=== PATIENT | male | born 1940 | race Caucasian/White ===

== ENCOUNTER 2018-02-25 21:52 | Emergency (ER) | payer MEDICARE, OTHER, SELFPAY ==
[2018-02-25 21:53] VITALS: BP 153/83; PULSE 87; RESP 16; TEMP 37.1; O2SAT 97; BMI 29.3
--- NOTE | 2018-02-25 22:19 | CT_ITS ---
CT Abdomen And Pelvis W/O Contrast INDICATION: RT SIDED ABDOMEN PAIN AFTER COUGHING,PT DENIES INJURY,RT SIDED LUMP AND BRUISING,ELEVATED BP,PT TAKES A BABY ASPIRINHX:HTN,CAD,A-FIB,GOUT,CABG X 5 COMPARISON: None TECHNIQUE: Axial CT imaging of the abdomen and pelvis without contrast. Coronal and sagittal reformatted images. Radiation dose of dilatation technique applied. FINDINGS: CAD trapping and scarring is noted at the visualized lung bases. Heart size is normal. The ascending aorta measures 4.2 cm, enlarged. Sternotomy wires are noted. The liver contains few small hypodensities, not further evaluated without contrast, may represent cysts. Spleen contains small calcified granulomas. Adrenal glands and pancreas are unremarkable. The kidneys are without evidence of nephrolithiasis or hydronephrosis. Small bilateral cortical renal cysts are noted. Bowel loops are nondistended. Appendix is unremarkable. Urinary bladder is decompressed. There is no evidence of free air or free fluid. Sigmoid diverticulosis is present without evidence of acute diverticulitis. Diffuse arteriosclerotic calcifications of the abdominal aorta and branching vessels are noted. There is evidence of thickening of the right rectus muscle with internal hyperdensity compatible with a right rectus muscle hematoma. Thickness measures up to 2 cm and craniocaudal extension measures approximately 6 cm. Associated overlying subcutaneous fat stranding is noted. A fat-containing umbilical hernia is noted with a 7 mm focus of internal calcification. Osseous structures demonstrate degenerative disc disease and facet arthritic changes at the lumbar spine. CT/Abdomen/Pelvis without Cont IMPRESSION: 2.6 cm right rectus muscle hematoma. Overlying subcutaneous fat stranding. No evidence of intra-abdominal extension. Arteriosclerotic disease. Prominent caliber of the visualized portion of the ascending aorta. Small hypodense lesions in the liver, not further characterized on this noncontrast exam. Small cortical renal cysts. Fat-containing umbilical hernia. at 2311 Reported and signed by: Millicent Dia MD N.B. : The above information has been verbally conveyed by Millicent Dia MD to Dr. Yanira Joseph, Referring Physician, on 02/25/2018 23:14:24 (ET). Electronically Signed: Millicent Dia MD at 23:09 EDT Tel , Service support , N.B. : The above information has been verbally conveyed by Millicent Dia MD to Dr. Yanira Joseph, Referring Physician, on 02/25/2018 23:14:24 (ET).
[2018-02-25 22:33] LABS: Absolute Lymphocyte Count 1.94 X10^3/ul (0.83-4.51); Absolute Neutrophil Count 4.6 X10^3/uL (2.0-7.7); Basophil# 0.03 X10^3/uL; Basophil% 0.4 % (0-1); Eosinophil# 0.22 X10^3/uL; Hematocrit 39.5 % (40-54); Hemoglobin 13.3 g/dl (13.0-16.5); Lymphocyte # 1.94 X10^3/ul (4.0); Lymphocyte % 26.4 % (19-41); Mean Corp Hgb Conc 33.7 g/gl (32-36); Mean Corpuscular Hgb 31.4 pg (27.0-32.0); Mean Corpuscular Volume 93.4 fL (80-94); Mean Platelet Vol. 9.5 fl (6.2-12.0); Monocyte# 0.58 X10^3/uL; Monocyte% 7.9 % (0-10); Neutrophil # 4.58 X10^3/uL (2.7-7.7); Neutrophil % 62.2 % (47-70); Platelet Count 201 K/mm3 (150-450); RBC Distribution Width CV 15.5 % (11.6-14.6); RBC Distribution Width SD 52.7 fl (35.1-43.9); Red Blood Count 4.23 M/mm3 (4.6-6.2); White Blood Count 7.4 K/mm3 (4.4-11.0)
[2018-02-25 22:36] LABS: POSITIVE COUNT NO; POSITIVE DIFFERENTIAL NO; POSITIVE MORPHOLOGY NO
[2018-02-25 23:03] LABS: Anion Gap 7 (5-15); BUN 19 mg/dL (7-18); Calcium,Total 8.4 mg/dL (8.5-10.1); Chloride 103 mmol/L (98-107); Creatinine, Serum 1.12 mg/dL (0.70-1.30); EST Glomerular Filtration Rate 67 mL/min (>60); Est Glom Filt Rate - Afr Amer 82 mL/min (>60); Estimated Creatinine Clearance 48.05 ml/min; Glucose 146 mg/dL (74-106); Potassium 3.7 mmol/L (3.5-5.1); Sodium Level 138 mmol/L (136-145)
--- NOTE | 2018-02-25 23:18 | ED.VISSUMM ---
- ER Visit Summary Date of Service: 02/25/18 Chief Complaint: [Abdominal pain and discoloration to right side of abdomen] History of Present Illness: The patient is a 77 M [presents to the emergency department with complaint of abdominal discomfort that started 3 days ago. Patient states that tonight he noticed discoloration to his abdomen. Patient states he has been coughing frequently due to bronchitis. Patient was treated with amoxicillin. Patient not on any blood thinners. Patient does take baby aspirin daily. Patient denies feeling lightheaded or dizzy. Abdominal discomfort is minimal at this time.] Physical Examination: [HEENT-PERRLA, EOMI. Cranial nerves II through XII grossly intact. TMs clear. Mucous membranes moist. No adenopathy. Cardiovascular-regular rate and rhythm without murmur or ectopy Lungs-clear to auscultation, chest wall stable without crepitus or subcu emphysema Abdomen-normoactive bowel sounds, soft. patient has small soft tissues swelling in the subcutaneous area of the right upper quadrant slightly tender to palpation. Patient has ecchymosis and bruising to the right side of the abdomen. There is no rebound, rigidity, or perineal signs. Extremities-intact ?4, normal range of motion, normal pulses, atraumatic.] Test Results: [CBC with differential obtained showed a white blood cell count of 7.4, hemoglobin 13, hematocrit 39.5, platelets 201. Chemistries unremarkable. CT flank showed a 2.6 cm right rectus muscle hematoma. Nothing significant intra-abdominal he noted.] Emergency Department Course and Treatment: Patient initially received normal saline 125 cc an hour. Patient to follow-up with his primary care physician for repeat exam in 3-5 days.] Treatment Plan: [Follow-up with primary care physician] Disposition: Discharged home in stable condition] Impression: [Right rectus muscle hematoma] This note was generated with [employer] dictation software. It may contain incorrect words, spelling, and punctuation that were not noted in review of the chart prior to signing ED Disposition - Plan for ED Patient: Chief Complaint: Other, Pain/Inj Referrals: Carlos Ram III, MD [Primary Care Provider] -
--- NOTE | 2018-02-25 23:21 | ED.DEP ---
ED Disposition - Plan for ED Patient: Chief Complaint: Other, Pain/Inj Instructions: ED Hematoma Referrals: Carlos Ram III, MD [Primary Care Provider] - 3-5 Days
[2018-02-25 23:33] VITALS: BP 150/83; BP 154/87; BP 162/83; PULSE 72; PULSE 76; PULSE 77; RESP 14; O2SAT 95
== END 2018-02-25 23:35 | disposition home or self-care (01) ==
LOC: ED 22:56
PROVIDERS: Emergency Provider Emergency Medicine; Family Provider Family Medicine; PCP Family Medicine
DX: S30.1XXA Contusion of abdominal wall, initial encounter (principal); X58.XXXA Exposure to other specified factors, initial encounter; Y93.9 Activity, unspecified; Y92.9 Unspecified place or not applicable; I25.10 Atherosclerotic heart disease of native coronary artery without angina pectoris; I10 Essential (primary) hypertension; M10.9 Gout, unspecified; Z95.1 Presence of aortocoronary bypass graft; Z79.82 Long term (current) use of aspirin; Z79.899 Other long term (current) drug therapy
CPT/HCPCS: 74176; 80048; 85025; 99283; A4216

== ENCOUNTER → 2018-12-07 10:47 | Outpatient (CLI) | payer MEDICARE, OTHER, SELFPAY ==
[2018-12-07 11:40] LABS: Hematocrit 45.9 % (40-54); Hemoglobin 15.5 g/dl (13.0-16.5); Mean Corp Hgb Conc 33.8 g/gl (32-36); Mean Corpuscular Hgb 32.1 pg (27.0-32.0); Mean Platelet Vol. 11.1 fl (6.2-12.0); Platelet Count 173 K/mm3 (150-450); RBC Distribution Width CV 15.1 % (11.6-14.6); Red Blood Count 4.83 M/mm3 (4.6-6.2); White Blood Count 6.7 K/mm3 (4.4-11.0)
[2018-12-07 11:41] LABS: Scan Indicated on CBC? Y/N NO
[2018-12-07 12:02] LABS: Anion Gap 10 (5-15); BUN 19 mg/dL (7-18); BUN/Creat Ratio 17.8 RATIO (10-20); Calcium,Total 9.2 mg/dL (8.5-10.1); Chloride 104 mmol/L (98-107); Creatinine, Serum 1.07 mg/dL (0.70-1.30); EST Glomerular Filtration Rate 71 mL/min (>60); Est Glom Filt Rate - Afr Amer 86 mL/min (>60); Glucose 92 mg/dL (74-106); Sodium Level 143 mmol/L (136-145)
== END ==
PROVIDERS: Family Provider Family Medicine; PCP Family Medicine; Referring Provider Internal Medicine Cardiovascular Disease; Visit Provider Internal Medicine Cardiovascular Disease
DX: I48.0 Paroxysmal atrial fibrillation (principal); I25.10 Atherosclerotic heart disease of native coronary artery without angina pectoris; I67.9 Cerebrovascular disease, unspecified; R42 Dizziness and giddiness; Z45.09 Encounter for adjustment and management of other cardiac device; Z95.818 Presence of other cardiac implants and grafts
CPT/HCPCS: 36415; 80048; 85027

== ENCOUNTER 2018-12-11 07:27 | Day surgery (SDC) | payer MEDICARE, OTHER, SELFPAY ==
[2018-12-10 08:54] VITALS: BMI 28.4
--- NOTE | 2018-12-16 09:37 | CL.IE_ITS ---
Patient: OPAL RODRIGUEZ Study Date: 12/11/2018 Performing: Jayy Mcfarlane MD : 1940 Age: 78 Gender: male PROCEDURES PERFORMED [id number] OF LOOP RECORDER INDICATIONS PROCEDURE DETAILS The patient was brought to the Catheterization Lab in the postabsorptive nonsedated state. Infor med consent was obtained prior to the procedure. Local anesthetic was given subcutaneously to the le ft upper chest area with Lidocaine 2%. Incision was made to the left upper chest. ICM Reveal LINQ was removed. The patient tolerated the procedure well. Estimated Blood Loss: 0 ml's IMPLANTED / EX-PLANTED DEVICES EXPLANTED DEVICE(S): ICM Reveal LINQ - Loading Checker: [employer], Model # LINQ Serial # [id number] DEVICE PARAMETERS CONCLUSIONS / RECOMMENDATIONS Device Conclusions: Successful removal of a patient activated loop recorder. Device Recommendations: Follow up with Primary Care Physician PROCEDURE MEDICATIONS Versed 1 mg IV Oxygen: 2 L/min via nasal cannula Antibiotic given in appropriate timeframe. Ancef 2 Gm IV @ 12/11/2018 09:04:14 Signed By Jayy Mcfarlane MD On 12/16/2018 09:37:03 Jayy Mcfarlane MD
== END 2018-12-11 10:22 | disposition home or self-care (01) ==
LOC: CLSP 07:29
PROVIDERS: Family Provider Family Medicine; PCP Family Medicine; Referring Provider Internal Medicine Cardiovascular Disease; Visit Provider Internal Medicine Cardiovascular Disease
DX: I48.0 Paroxysmal atrial fibrillation (principal); Z45.09 Encounter for adjustment and management of other cardiac device; I25.10 Atherosclerotic heart disease of native coronary artery without angina pectoris; I10 Essential (primary) hypertension; E78.00 Pure hypercholesterolemia, unspecified; Z95.1 Presence of aortocoronary bypass graft; Z79.82 Long term (current) use of aspirin; Z79.899 Other long term (current) drug therapy; E66.3 Overweight; Z68.28 Body mass index [BMI] 28.0-28.9, adult
CPT/HCPCS: 33286; 99152; J7040

== ENCOUNTER 2019-03-24 00:01 | Emergency (ER) | payer MEDICARE, OTHER, SELFPAY ==
[2018-12-10 08:54] VITALS: BMI 28.4
[2019-03-24 00:02] VITALS: BP 156/73; PULSE 71; RESP 15; TEMP 36.7; BMI 26.9
[2019-03-24 00:40] LABS: Absolute Lymphocyte Count 1.84 X10^3/ul (0.83-4.51); Absolute Neutrophil Count 4.6 X10^3/uL (2.0-7.7); Basophil# 0.03 X10^3/uL; Basophil% 0.4 % (0-1); Eosinophil# 0.23 X10^3/uL; Eosinophils% 3.1 % (0-5); Hematocrit 43.1 % (40-54); Hemoglobin 14.9 g/dl (13.0-16.5); Lymphocyte # 1.84 X10^3/ul (4.0); Lymphocyte % 24.7 % (19-41); Mean Corp Hgb Conc 34.6 g/gl (32-36); Mean Corpuscular Hgb 32.5 pg (27.0-32.0); Mean Corpuscular Volume 94.1 fL (80-94); Mean Platelet Vol. 11.2 fl (6.2-12.0); Monocyte# 0.72 X10^3/uL; Monocyte% 9.7 % (0-10); Neutrophil # 4.61 X10^3/uL (2.7-7.7); Platelet Count 145 K/mm3 (150-450); RBC Distribution Width CV 15.9 % (11.6-14.6); RBC Distribution Width SD 54.5 fl (35.1-43.9); Red Blood Count 4.58 M/mm3 (4.6-6.2); White Blood Count 7.4 K/mm3 (4.4-11.0)
[2019-03-24 00:41] LABS: POSITIVE COUNT NO; POSITIVE DIFFERENTIAL NO; POSITIVE MORPHOLOGY NO
[2019-03-24] MEDS: 0.9% Normal Saline 1,000 ML 150 ML IV (00:55)
[2019-03-24 00:58] LABS: Anion Gap 5 (5-15); BUN 24 mg/dL (7-18); BUN/Creat Ratio 20.3 RATIO (10-20); Calcium,Total 8.6 mg/dL (8.5-10.1); Chloride 107 mmol/L (98-107); Creatinine, Serum 1.18 mg/dL (0.70-1.30); EST Glomerular Filtration Rate 63 mL/min (>60); Est Glom Filt Rate - Afr Amer 77 mL/min (>60); Estimated Creatinine Clearance 44.88 ml/min; Glucose 152 mg/dL (74-106); Potassium 3.3 mmol/L (3.5-5.1); Sodium Level 138 mmol/L (136-145)
--- NOTE | 2019-03-24 01:50 | ED.DCSUM_ITS ---
- ER Visit Summary Date of Service: 03/24/19 Chief Complaint: Right lower extremity cellulitis History of Present Illness: The patient is a 78 M who noted redness and warmth to his right lower extremity tonight. He had chills 2 days ago but otherwise is felt well. He denies any known injury. Physical Examination: Vital signs unremarkable. Patient is afebrile. Patient sitting upright in bed no acute distress. He is nontoxic-appearing. Heart is regular rate and rhythm. Lung sounds are clear. Abdomen is soft and nontender. Right lower extremity examination was erythema and warmth over the anterior right barbosa and onto the medial ankle. No open wounds are noted. He has strong distal pulses. Test Results: CBC was normal white count with unremarkable differential. Platelet count is 145,000. Chemistry studies significant only for potassium 3.3 and a glucose 152. Emergency Department Course and Treatment: Patient was given a dose of IV clindamycin. Area of cellulitis is outlined. He will be continued on clindamycin at home. If he worsens he is to return for IV antibiotics. Treatment Plan: [] Disposition: Discharge Impression: Cellulitis right lower extremity This note was generated with [employer] dictation software. It may contain incorrect words, spelling, and punctuation that were not noted in review of the chart prior to signing ED Disposition - Plan for ED Patient: Disposition: Home or Assisted Living Instructions: ED Stap Infec Abx Tx Only Prescriptions: Clindamycin [Cleocin] 300 mg PO 4X/DAY #80 capsule Referrals: Carlos Ram III, MD [Primary Care Provider] - 1 Week
[2019-03-24 01:55] VITALS: BP 151/69; PULSE 58; RESP 15; O2SAT 95
== END 2019-03-24 02:03 | disposition home or self-care (01) ==
PROVIDERS: Emergency Provider Emergency Medicine; Family Provider Family Medicine; PCP Family Medicine
DX: L03.115 Cellulitis of right lower limb (principal); I25.10 Atherosclerotic heart disease of native coronary artery without angina pectoris; I10 Essential (primary) hypertension; E78.00 Pure hypercholesterolemia, unspecified; I48.0 Paroxysmal atrial fibrillation; M10.9 Gout, unspecified; Z79.82 Long term (current) use of aspirin; Z79.899 Other long term (current) drug therapy
CPT/HCPCS: 80048; 85025; 87040; 96365; 99284; J7030; A4216

== ENCOUNTER 2019-08-18 00:45 | Inpatient (IN) | payer MEDICARE, OTHER, SELFPAY ==
[2019-08-03 10:36] VITALS: BMI 28.3
[2019-08-18] VITALS (14 sets, daily range): BP systolic 129–168; BP diastolic 64–82; PULSE 58–67; RESP 16–26; TEMP 36.3–37.1; O2SAT 93–98; BMI 28.0; BMI 27.6
--- NOTE | 2019-08-18 01:02 | EKG12_ITS ---
Test Reason : DIZZINESS Blood Pressure : / mmHG Vent. Rate : 058 BPM Atrial Rate : 058 BPM P-R Int : 174 ms QRS Dur : 102 ms QT Int : 502 ms P-R-T Axes : 042 -37 -61 degrees QTc Int : 492 ms Sinus bradycardia Possible Left atrial enlargement Left axis deviation ST & T wave abnormality, consider anterolateral ischemia Prolonged QT Abnormal ECG Confirmed by DONALD MINER, JARED ([id number]), editor managing director AKBAR WILKERSON ([id number]) on 08/24/2019 2:10:35 PM Referred By: KASSIE Confirmed By:JARED BENNETT MD
--- NOTE | 2019-08-18 01:02 | RAD_ITS ---
STUDY: X-RAY CHEST REASON FOR EXAM: Male, 79 years old. Dizziness. Blurred vision. TECHNIQUE: One view COMPARISON: April 15, 2015 FINDINGS: There is cardiomegaly with median sternotomy wires in place. Plate atelectatic changes in the lung bases and a slightly elevated left hemidiaphragm. No pneumonia.. Normal visualized thoracic spine. Normal visualized ribs, clavicles, and shoulders. There is no demonstrated abnormality of the visualized soft tissue structures of the upper abdomen. RAD/Chest 1 View (Portable) IMPRESSION: Cardiomegaly with bibasilar platelike atelectatic changes Electronically Signed: Evgeny Reyna MD at 1:41 EST Tel , Service support ,
--- NOTE | 2019-08-18 01:03 | ED.VIS.GEN ---
History of Present Illness Chief Complaint: Dizziness Informant: Patient, Family Onset: Today Context: Sudden Onset Timing: Continuous Current Severity: Severe Maximum Severity: Severe Narrative: Patient is a 79-year-old male with history of peripheral vertigo and coronary artery disease presenting with dizziness and vomiting. Patient states around midnight, proximally 1 hour prior to arrival, he was sitting watching TV when he suddenly felt very dizzy. He states he felt like the room was spinning. He was so dizzy had a hard time walking. He developed nausea and vomiting after this. Patient denies any ringing in his ears or hearing changes. He states when the symptoms were particularly severe he felt that his vision was blurry. He states that since resolved. He notes this feels like a prior episode of vertigo he had before his bypass surgery. Patient's been working in his yard last few days and otherwise been feeling well. notes he does have a history of allergies as well as a chronic cough. No other complaints at this time. Patient does not have associated chest pain, shortness of breath or difficulty breathing. No abdominal pain. No numbness, tingling or speech changes. Prior similar symptoms: Yes - Vertigo Past Medical History - Allergies and Home Meds Allergies/Adverse Reactions: Allergies losartan Adverse Reaction (Intermediate, Verified 08/18/19 01:02) Nasal congestion & cough lisinopril Adverse Reaction (Verified 08/18/19 01:02) Other Sulfa (Sulfonamide Antibiotics) Adverse Reaction (Verified 08/18/19 01:02) Unknown Past Medical History: - - Coronary artery disease, proximal atrial fibrillation, hypertension, hyperlipidemia Surgical History: coronary bypass surgery, herniorrhaphy, - Smoking Status: Former smoker - Family History Maternal Family History: Family History (Last Reviewed 08/03/19 @ 14:17 by SAPNA Castaneda) Father Hypertension Brother CVA (cerebral vascular accident) Diabetes Family History: Reports: Hypertension Paternal Family History: Family History (Last Reviewed 08/03/19 @ 14:17 by SAPNA Castaneda) Father Hypertension Brother CVA (cerebral vascular accident) Diabetes Family History: Reports: Hypertension Sibling Family History: Family History (Last Reviewed 08/03/19 @ 14:17 by SAPNA Castaneda) Father Hypertension Brother CVA (cerebral vascular accident) Diabetes Family History: Reports: Hypertension Review of Systems All systems negative except as indicated Eyes: Reports: Blurred Vision - bilaterally - Transient, resolved Gastrointestinal: Reports: Nausea, Vomiting Neurological: Reports: - - Numbness, vertigo Physical Exam Vital Signs/Narrative: Vital Signs Temp Pulse Resp BP Pulse Ox 08/18/19 00:51 16 08/18/19 00:46 97.3 F L 64 16 168/70 H 97 Inital Vital Signs reviewed: Yes General: Well nourished, Well developed, No Acute Distress Head: Normocephalic, Atraumatic Eyes: Perrl, EOMI, - - Bilateral horizontal fatiguing nystagmus with leftward gaze, normal visual urbina ENT: Moist mucous membranes, No rhinorrhea, TM's clear Neck: Supple, Nontender Cardiovascular: Regular rate, Regular rhythm, No murmurs Respiratory: No distress, CTA bilaterally, Chest nontender Abdomen: Soft, Nontender, Nondistended, Normal bowel sounds Back: Nontender, Normal Inspection Extremities: Nontender, No edema Skin: Normal color, No rash Neurological: Alert, Oriented x3, Cranial nerves II-XII grossly intact, Normal Strength, Normal Sensation, - - No truncal ataxia, normal [id number] bilaterally. NIH equals 0 Psychological: Normal affect, Normal Mood Diagnostic/Tx/Re-eval Chest X-Ray - ED: 1 View, Read by ED Physician, Read by Radiologist, No Acute Disease, Cardiomegaly Clinical Impression(s) from Imaging Studies Chest X-Ray 08/18/19 01:02 IMPRESSION: Cardiomegaly with bibasilar platelike atelectatic changes Electronically Signed: Evgeny Reyna MD at 1:41 EST Tel , Service support , Brain CT 08/18/19 03:18 IMPRESSION: No acute findings in the brain Electronically Signed: Evgeny Reyna MD at 4:43 EST Tel , Service support , Laboratory Data 08/18/19 08/18/19 08/18/19 00:55 00:55 02:05 WBC 9.3 RBC 4.82 Hgb 15.8 Hct 44.4 MCV 92.1 MCH 32.8 H MCHC 35.6 RDW Std Deviation 50.4 H RDW Coeff of Fe 14.9 H Plt Count 180 MPV 10.8 Immature Gran % (Auto) 0.100 Neut % (Auto) 28.6 L Lymph % (Auto) 57.8 H [place] % (Auto) 9.4 Eos % (Auto) 3.2 Baso % (Auto) 0.9 Absolute Neuts (auto) 2.7 Absolute Lymphs (auto) 5.36 H Nucleated RBC % 0 Differential Comment SCANNED Sodium 138 Potassium 2.8 L Chloride 104 Carbon Dioxide 25.0 Anion Gap 9 BUN 26 H Creatinine 1.05 Estim Creat Clear Calc 49.62 Est GFR (MDRD) Af Amer 88 Est GFR (MDRD) Non-Af 72 BUN/Creatinine Ratio 24.8 H Glucose 140 H Calcium 9.2 Total Bilirubin 0.40 AST 27 ALT 26 Alkaline Phosphatase 66 Troponin I 0.017 Total Protein 7.3 Albumin 4.0 Globulin 3.3 Albumin/Globulin Ratio 1.2 Lipase 170 Urine Color Yellow Urine Clarity Clear Urine pH 8.0 Ur Specific [place] 1.015 Urine Protein 30 H Urine Glucose (UA) Normal Urine Ketones 15 H Urine Occult Blood Negative Urine Nitrite Negative Urine Bilirubin Negative Urine Urobilinogen Normal Ur Leukocyte Esterase Negative Urine RBC 0 SEEN Urine WBC 0 SEEN Ur Squamous Epith Cells 0-5 SEEN Urine Bacteria RARE Urine Mucus 0 SEEN - Rhythm Strip Rhythm Strip: Sinus bradycardia Rate: 58 Ectopy: None - EKG Initial EKG Interpretation: Sinus Bradycardia, - - This bradycardia rate of 58 new line MA interval 174 QRS 102 QTc 492 Left axis deviation T wave inversions in V1 through V5 Compared to prior EKG on 04/15/2015 patient has no acute changes Prior: Unchanged - Medical Decision Making Patient evaluated for dizziness. His symptoms are consistent with vertigo. I suspect they are peripheral in nature. They seem to be worse with change in his head position or movement. Patient does not have any truncal ataxia or loss of coordination. He has normal visual urbina. Patient is initially given IV Ativan and Zofran for his symptoms. On reevaluation he is improved and I am able to do a more detailed neuro exam. Patient continues to have horizontal nystagmus and is fatigued with leftward gaze however he does not have a small amount of rotary nystagmus with upward gaze. Patient walks to the bathroom but he still quite unstable. BMP is remarkable for hypokalemia. Patient is given IV and oral potassium replacement. He will be admitted for his vertigo because he is at quite a fall risk with his age and unsteadiness. CT of the head does not show any acute intracranial process. Patient will also receive an MRI to definitively rule out a central cause of his vertigo. Patient is agreeable with this plan. He is otherwise stable in the emergency room. He is accepted by Dr. Blanchard to PCU. ED Disposition - Plan for ED Patient: Disposition: Acute [facility] Diagnosis: Vertigo, Hypokalemia
[2019-08-18 01:10] LABS: Absolute Lymphocyte Count 5.36 X10^3/uL (0.83-4.51); Absolute Neutrophil Count 2.7 X10^3/uL (2.0-7.7); Basophil# 0.08 X10^3/uL; Basophil% 0.9 % (0-1); Differential Indicated SCAN CRITERIA MET; Eosinophils% 3.2 % (0-5); Hematocrit 44.4 % (40-54); Hemoglobin 15.8 g/dL (13.0-16.5); Lymphocyte # 5.36 X10^3/ul (4.0); Lymphocyte % 57.8 % (19-41); Mean Corp Hgb Conc 35.6 g/dL (32-36); Mean Corpuscular Hgb 32.8 pg (27.0-32.0); Mean Corpuscular Volume 92.1 fL (80-94); Mean Platelet Vol. 10.8 fl (6.2-12.0); Monocyte# 0.87 X10^3/uL; Monocyte% 9.4 % (0-10); NRBC Flagged by Analyzer 0 % (0-5); Neutrophil # 2.66 X10^3/uL (2.7-7.7); Neutrophil % 28.6 % (47-70); POSITIVE DIFFERENTIAL YES; Platelet Count 180 K/mm3 (150-450); RBC Distribution Width CV 14.9 % (11.6-14.6); RBC Distribution Width SD 50.4 fl (35.1-43.9); Red Blood Count 4.82 M/mm3 (4.6-6.2); White Blood Count 9.3 K/mm3 (4.4-11.0)
[2019-08-18] MEDS: Ondansetron 4 MG/2 ML Vial IV (01:20)
[2019-08-18] MEDS: LORazepam 2 MG/ML Syringe 1 MG IV (01:20)
[2019-08-18 01:24] LABS: ALB/GLOB Ratio 1.2 RATIO (0.9-2.4); AST(SGOT) 27 U/L (15-37); Alanine Aminotransfer ALT/SGPT 26 U/L (16-61); Alkaline Phosphatase 66 U/L (45-117); Anion Gap 9 (5-15); BUN 26 mg/dL (7-18); BUN/Creat Ratio 24.8 RATIO (10-20); Calcium,Total 9.2 mg/dL (8.5-10.1); Chloride 104 mmol/L (98-107); Creatinine, Serum 1.05 mg/dL (0.70-1.30); EST Glomerular Filtration Rate 72 mL/min (>60); Est Glom Filt Rate - Afr Amer 88 mL/min (>60); Estimated Creatinine Clearance 49.62 ml/min; Globulin 3.3 g/dL (2.2-4.2); Glucose 140 mg/dL (74-106); Lipase 170 U/L (73-393); Potassium 2.8 mmol/L (3.5-5.1); Protein, Total 7.3 g/dL (6.4-8.2); Sodium Level 138 mmol/L (136-145)
[2019-08-18 01:36] LABS: Differential Comment SCANNED
[2019-08-18 02:14] LABS: Mucous, Urine 0 SEEN /hpf (<or=2+); Red Blood Cells-Urine 0 SEEN /hpf (0-5); White Blood Cells 0 SEEN /hpf (0-5)
[2019-08-18 02:15] LABS: Color, Urine Yellow (Yellow); Glucose, Dipstick Normal (Normal); Ketone-Dipstick 15 mg/dl (Negative); Leukocyte Esterase-Dipstick Negative /ul (Negative); Nitrite-Dipstick Negative (Negative); Occult Blood-Urine Negative /ul (Negative); Protein-Dipstick 30 mg/dl (Negative); Specific Gravity, Urine 1.015 (1.002-1.030); Urine Bilirubin Dipstick Negative (Negative); Urine Clarity Clear (Clear); Urine Urobilinogen Normal (Normal)
[2019-08-18 02:21] LABS: Bacteria RARE /hpf (None Seen); Squamous Epithelial Cells - UA 0-5 SEEN /hpf (0-5)
--- NOTE | 2019-08-18 03:18 | CT_ITS ---
STUDY: CT BRAIN WITHOUT CONTRAST REASON FOR EXAM: Male, 79 years old. DNS. Blurred vision. RADIATION DOSAGE (If Supplied By Facility): CTDIvol = ( 44.99 ) mGy, DLP = ( 812.98 ) mGycm TECHNIQUE: Transaxial CT imaging of the brain was performed without administration of intravenous contrast material. Individualized dose optimization techniques were used for this CT. COMPARISON: April 15, 2015 FINDINGS: No scalp hematoma and no calvarial fracture. Age-related involutional changes of the brain in both hemispheres. There is no acute hemorrhage or acute infarction and no intra or extra-axial tumor mass. Nonspecific microangiopathic white matter changes in both centrum semiovales. CT/Brain/Head without Contrast IMPRESSION: No acute findings in the brain Electronically Signed: Evgeny Reyna MD at 4:43 EST Tel , Service support ,
--- NOTE | 2019-08-18 03:39 | HP.PCM_ITS ---
Problem List (1) Vertigo Status: Chronic History of Present Illness Date of Admission: 08/18/19 Chief Complaint: DIZZINESS The patient is a 79 year old M with a significant history of hypertension; hyperlipidemia; CAD status post CABG; and paroxysmal A. fib who presented to emergency department with dizziness that started few hours before presentation. He describes his dizziness as a spinning sensation. Associated with symptoms is nausea and dry heaving. Patient was so dizziness to the point that he could not stand up. Also he had blurry vision. At the emergency department his blurry vision had improved. Patient reported that the last time he had dizziness was when he had a heart attack. Family reported that patient had bronchitis about 2 to 3 weeks ago and was placed on steroids. Emergency department doctor reported nystagmus. Past Medical History Past Medical History (Chronic Problems): Chronic Problems (Last Reviewed 08/18/19 @ 05:49 by Santo Cedeño MD) Other specified cardiac device in situ (Chronic) Paroxysmal atrial fibrillation (Chronic) Presence of aortocoronary bypass graft (Chronic) 02/17/2015 CABG: NGUYEN to LAD, SVG to OM, and posterolateral bundles and also to ramus intermedius @ [facility] Atherosclerotic heart disease of [place] coronary artery without angina pectoris (Chronic) 02/17/2015 CABG: NGUYEN to LAD, SVG to OM, and posterolateral bundles and also to ramus intermedius @ [facility] HLD (hyperlipidemia) (Chronic) HTN (hypertension) (Chronic) Hyperlipidemia (Chronic) Gout (Chronic) CAD (coronary artery disease) (Chronic) severe going for cabg Cerebrovascular disease (Chronic) 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) NGUYEN to LAD, SVG to OM, Posterolateral bundles, & ramus intermedius @ [facility] Occlusion of both vertebral arteries (Chronic) Vertigo (Chronic) Medical History: Medical History (Last Reviewed 08/18/19 @ 06:12 by Santo Cedeño MD) Other specified cardiac device in situ (Chronic) Z95.818 Paroxysmal atrial fibrillation (Chronic) I48.0 Atherosclerotic heart disease of [place] coronary artery without angina pectoris (Chronic) I25.10 02/17/2015 CABG: NGUYEN to LAD, SVG to OM, and posterolateral bundles and also to ramus intermedius @ [facility] HLD (hyperlipidemia) (Chronic) E78.5 HTN (hypertension) (Chronic) I10 Allergies losartan Adverse Reaction (Intermediate, Verified 08/18/19 01:02) Nasal congestion & cough lisinopril Adverse Reaction (Verified 08/18/19 01:02) Other Sulfa (Sulfonamide Antibiotics) Adverse Reaction (Verified 08/18/19 01:02) Unknown Home Medications: Ambulatory Orders Medication Instructions Recorded Allopurinol [Zyloprim] 300 mg PO DAILY #30 tab 05/27/14 Aspirin [Aspirin, Baby] 81 mg PO DAILY #30 05/27/14 Simvastatin [Zocor] 20 mg PO QHS 04/15/15 Amlodipine [Norvasc] 5 mg PO DAILY 05/25/16 hydrochlorothiazide 12.5 mg capsule 12.5 mg PO QDAY 11/17/17 Surgical History: Surgical History (Last Reviewed 08/18/19 @ 06:12 by Santo Cedeño MD) Presence of aortocoronary bypass graft (Chronic) Z95.1 02/17/2015 CABG: NGUYEN to LAD, SVG to OM, and posterolateral bundles and also to ramus intermedius @ [facility] Surgical History: coronary bypass surgery, herniorrhaphy, - Psychiatric History: No pertinent psych hx Lives: Spouse/ Significant Other Smoking Status: Former smoker - *Family History Maternal Family History: Family History (Last Reviewed 08/18/19 @ 06:12 by Santo Cedeño MD) Father Hypertension Brother CVA (cerebral vascular accident) Diabetes History Items: Hypertension Paternal Family History: Family History (Last Reviewed 08/18/19 @ 06:12 by Santo Cedeño MD) Father Hypertension Brother CVA (cerebral vascular accident) Diabetes History Items: Hypertension Sibling Family History: Family History (Last Reviewed 08/18/19 @ 06:12 by Santo Cedeño MD) Father Hypertension Brother CVA (cerebral vascular accident) Diabetes History Items: Hypertension Review of Systems Constitutional: Denies: Chills, Fever, Weight Change HEENT: Denies: Head Aches, Sinus Congestion, Sinus Drainage Cardiovascular: Denies: Chest Pain, Palpitations Respiratory: Reports: Cough - Chronic. Denies: Shortness of breath at rest, Sputum production Gastrointestinal: Reports: Nausea. Denies: Abdominal Pain, Vomiting Genitourinary: Denies: Dysuria Musculoskeletal: Denies: Joint Pain, Joint Tenderness Skin: Denies: Rash, Wounds Neurological: Reports: Blurred vision. Denies: Focal weakness, Numbness, Tingling Psychiatric: Denies: Anxiety, Depression, Homicidal Ideations, Suicidal Ideations Hematologic/ Lymphatic: Denies: Easy Bruising, Easy Bleeding VTE Information - Inpt Only VTE Present on Admission: No VTE Mechan Device Prophylaxis: None VTE Pharm Prophylaxis ordered?: Yes Patient Problems: Active and Suspected Problems (Last Reviewed 08/18/19 @ 05:49 by Santo Cedeño MD) Hypokalemia (Acute) - Physical Exam Vitals/I&O's: Vital Signs Temp Pulse Resp BP Pulse Ox 97.3 F L 59 L 26 H 138/67 H 97 08/18/19 00:46 08/18/19 03:34 08/18/19 03:34 08/18/19 03:34 08/18/19 00:46 Oxygen Delivery Method Room Air Weight: 76.474 kg Body Mass Index (BMI) 28.0 Finger Stick Blood Glucose 140 Intake and Output for Last 24 Hours 08/16/19 08/17/19 08/18/19 23:59 23:59 23:59 Intake Total 500 / 500 Balance 500 / 500 General: Alert, Oriented x3, Cooperative HEENT: Atraumatic, PERRLA, EOMI, Normocephalic Neck: Supple, No JVD, Negative Carotid Bruits Lungs: Clear to auscultation, Normal air movement Cardiovascular: Regular rate, No murmurs Abdomen: Bowel Sounds Present, Soft, Non Tender Extremities: No edema, Capillary Refill Less than 3 Seconds Skin: No rashes, No breakdown Musculoskeletal: No Tenderness to Palpation of Joints or Extremities Neurological: Cranial nerves II-XII grossly intact, - - Dysarthric maneuver did not show vertigo. However patient appeared to have some mild nystagmus. Psych/Mental Status: Normal Affect, Appropriate Laboratory Results 08/18/19 00:55: WBC 9.3, RBC 4.82, Hgb 15.8, Hct 44.4, MCV 92.1, MCH 32.8 H, MCHC 35.6, RDW Std Deviation 50.4 H, RDW Coeff of Fe 14.9 H, Plt Count 180, MPV 10.8, Immature Gran % (Auto) 0.100, Neut % (Auto) 28.6 L, Lymph % (Auto) 57.8 H , [place] % (Auto) 9.4, Eos % (Auto) 3.2, Baso % (Auto) 0.9, Absolute Neuts (auto) 2.7, Absolute Lymphs (auto) 5.36 H, Nucleated RBC % 0, Differential Comment SCANNED 08/18/19 00:55: Sodium 138, Potassium 2.8 L, Chloride 104, Carbon Dioxide 25.0, Anion Gap 9, BUN 26 H, Creatinine 1.05, Estim Creat Clear Calc 49.62, Est GFR (MDRD) Af Amer 88, Est GFR (MDRD) Non-Af 72, BUN/Creatinine Ratio 24.8 H, Glucose 140 H, Calcium 9.2, Total Bilirubin 0.40, AST 27, ALT 26, Alkaline Phosphatase 66, Troponin I 0.017, Total Protein 7.3, Albumin 4.0, Globulin 3.3, Albumin/Globulin Ratio 1.2, Lipase 170 08/18/19 02:05: Urine Color Yellow, Urine Clarity Clear, Urine pH 8.0, Ur Specific [place] 1.015, Urine Protein 30 H, Urine Glucose (UA) Normal, Urine Ketones 15 H, Urine Occult Blood Negative, Urine Nitrite Negative, Urine Bilirubin Negative, Urine Urobilinogen Normal, Ur Leukocyte Esterase Negative, Urine RBC 0 SEEN, Urine WBC 0 SEEN, Ur Squamous Epith Cells 0-5 SEEN, Urine Bacteria RARE, Urine Mucus 0 SEEN Assessment/Plan All Active Problems (Last Reviewed 08/18/19 @ 05:49 by Santo Cedeño MD) Hypokalemia (Acute) Encounter for loop recorder at end of battery life (Acute) The patient is a 79 year old M with a significant history of hypertension; hyperlipidemia; CAD status post CABG; and paroxysmal A. fib who presented to emergency department with dizziness; nausea and dry heaving. Vertigo Order MRI/MRA head and neck Schedule meclizine 3 times daily Valium PRN Zofran as needed. Permissive hypertension with labetalol for systolic blood pressure more than 220 or diastolic blood pressure more than 120. Hold home antihypertensive. Discussed with emergency department doctor to get CT of head. CT of head returned unremarkable. If MRI is unremarkable consider Vestibular rehab to be started inpatient; and then outpatient Hypokalemia On presentation his potassium was 2.8. This could be due to the diuretic effects. P.o. and IV potassium ordered. Trend potassium Hypertension On presentation his blood pressure is stable in regard to his age. Hold home hydrochlorthiazide and amlodipine for permissive hypertension.. PRN labetalol for permissive hypertension parameters. Trend blood pressures and adjust blood pressure medication. CAD status post CABG Aspirin and Zocor continued DVT prophylaxis Subcutaneous Lovenox Code Visit OBSV E&M: [id number] Initial observation care L3
[2019-08-18] MEDS: Potassium Chloride 10mEq/100mL 10 MEQ/100 ML IV.SOLN. 100 MEQ IV BOLUS ×2 (05:58→07:58)
--- NOTE | 2019-08-18 06:46 | MRI_ITS ---
We are attempting to reach an attending provider to discuss findings. An addendum with communication details will be sent when the communication is complete. STUDY: MRI BRAIN WITHOUT CONTRAST REASON FOR EXAM: Male, 79 years old. Vertigo yesterday which has now resolved. TECHNIQUE: Standardized multiplanar fat and water weighted pulse sequences were obtained. COMPARISON: 04/15/2015. FINDINGS: Small restricted diffusion in the left upper cerebellar hemisphere is also visible on the T2 FLAIR sequence. This is subacute lacunar ischemic infarct. 2 small restricted diffusion in the right anterior external capsule and the right lateral globus pallidus are not visible on the T2 FLAIR sequence. They are acute microembolic infarcts. Normal size of the ventricles and extra-axial spaces for the patient's age. Normal white matter tracts of the supratentorial brain. Normal remaining basal ganglia. Normal thalami. There is no extra-axial fluid accumulation. Normal flow voids within the major intracranial circulation suggesting patency by spin echo criteria. Normal sella turcica, pituitary gland, infundibular stalk, optic chiasm and hypothalamus. Normal tectal plate and pineal gland. Normal midbrain, alayna and medulla. Normal cerebellum. Normal basal cisterns. Normal bilateral temporal bones. Normal bilateral internal auditory canals. No demonstrated orbital abnormality, within the constraints of a routine brain study. Normal visualized paranasal sinuses. Normal calvarium and skull base. Normal visualized soft tissue structures. Normal visualized upper cervical spine. MRI/Brain without Contrast IMPRESSION: 1. 2 acute microembolic lacunar ischemic infarcts in the right anterior external capsule and the right lateral globus pallidus. 2. Small subacute lacunar ischemic infarct in the left upper cerebellar hemisphere. 3. No other additional findings or changes since 04/15/2015. Electronically Signed: Amando Andre MD at 10:50 EST , Service support ,
--- NOTE | 2019-08-18 06:46 | MRI_ITS ---
STUDY: MRA OF THE HEAD WITHOUT CONTRAST REASON FOR EXAM: Male, 79 years old. Vertigo yesterday which has now resolved. TECHNIQUE: 3-D ipuv-bv-kjegvz (TOF) imaging was performed with MIPs. The study was performed unenhanced. COMPARISON: None. FINDINGS: Normal bilateral petrous carotid arteries. Normal right cavernous carotid artery with a normal supraclinoid bifurcation. Normal left cavernous carotid artery with a normal supraclinoid bifurcation. Normal right A1 segment of the anterior cerebral artery. Normal left A1 segment of the anterior cerebral artery. Normal intact anterior communicating artery (ACOM). Normal bilateral A2 segments of the anterior cerebral arteries. Normal right M1 and M2 segments of the middle cerebral arteries, with a normal M1 bifurcation. Normal left M1 and M2 segments of the middle cerebral arteries, with a normal M1 bifurcation. Normal right posterior communicating artery (PCOM). Normal left posterior communicating artery (PCOM). Suspicious high-grade stenosis of both vertebral arteries. Suspicious long segment high-grade stenosis along the basilar artery with a normal basilar bifurcation. The visualized bilateral superior cerebellar (SCA) arteries are normal. Normal bilateral P1, P2 and visualized P3 segments of the posterior cerebral arteries. There is no demonstrated aneurysm of the [place]. No other suspicious vaso-occlusive disease. Subacute lacunar ischemic infarct in the left cerebellum. Small subacute lacunar ischemic infarcts in the right anterior external capsule and right lateral globus pallidus. MRI/MRA Head ONLY without Contrast IMPRESSION: 1. Suspicious high-grade stenosis in the intradural segments of both vertebral arteries and suspicious long segment high-grade stenosis along the basilar artery. 2. Please see MRI brain showing acute lacunar ischemic infarcts in the right anterior external capsule and right lateral globus pallidus and subacute lacunar ischemic infarct in the left cerebellum. RECOMMENDATION: CTA of the head and neck for further evaluation if there are no contrast contraindications. Electronically Signed: Amando Andre MD at 11:00 EST , Service support ,
--- NOTE | 2019-08-18 06:46 | MRI_ITS ---
STUDY: MRA NECK WITH AND WITHOUT CONTRAST REASON FOR EXAM: Male, 79 years old. Vertigo yesterday which has now resolved. TECHNIQUE: 3-D hhap-kr-mnrqfb (TOF) imaging was performed in an 1.5 T MRI scanner. IV Dotarem 14 was administered for the contrast enhanced images. COMPARISON: CTA head and neck 02/13/2015. FINDINGS: RIGHT CAROTID ARTERIES: 50% stenosis in the midportion of the right common carotid artery due to plaque in the lateral wall. Widely patent right common carotid bifurcation. Widely patent right internal carotid artery bulb. Widely patent right proximal internal carotid artery including the origin of the right internal carotid artery bulb. Normal visualized cervical portion of the right internal carotid artery. Normal origin of the right external carotid artery (ECA). LEFT CAROTID ARTERIES: Normal left common carotid artery (CCA). Normal left internal carotid bulb. Normal origin of the left internal carotid (ICA) artery wall. Normal visualized cervical portion of the left internal carotid artery. Normal origin of the left external carotid artery (ECA). VERTEBRAL ARTERIES: Normal cervical segments of the codominant vertebral arteries. Widely patent origin of the left subclavian artery. The right subclavian origin of the vertebral artery is not included. Suspicious occlusion versus high-grade stenosis in the intradural segment of the right vertebral artery distal to the right PICA origin. High-grade stenosis in the proximal basilar artery with irregular plaques in the remainder of the basilar artery. MRI/MRA Neck WITH and W/O Contrast IMPRESSION: 1. 50% stenosis of the mid cervical segment of the right common carotid artery. 2. Widely patent left common carotid artery, bilateral common carotid bifurcations, bilateral internal and external carotid arteries. 3. High-grade stenosis of the proximal basilar artery and suspicious high-grade stenosis in the intradural segments of both vertebral arteries at their respective VB junctions. When compared to CTA head and neck of 02/13/2015, the right common carotid artery stenosis is a new finding. High-grade stenosis of the proximal basilar artery and probable occlusion of the distal basilar apex with collateral flow from both posterior communicating arteries providing arterial supply to both [employer] territories were present previously. RECOMMENDATION: CTA of the head and neck for further evaluation. Electronically Signed: Amando Andre MD at 11:13 EST , Service support ,
[2019-08-18] MEDS: Aspirin 81 MG TAB.CHEW PO (08:13)
[2019-08-18] MEDS: Meclizine 12.5 MG Tablet PO ×3 (08:13→22:47)
[2019-08-18] MEDS: 0.9% Saline Lock 10 ML Syringe IV ×2 (10:11→11:06)
[2019-08-18] MEDS: Allopurinol 300 MG Tablet PO (10:12)
[2019-08-18] MEDS: Enoxaparin 40 MG/0.4 ML Syringe SC (10:12)
[2019-08-18] MEDS: Potassium Chloride 10mEq/100mL 10 MEQ/100 ML IV.SOLN. 75 MEQ IV BOLUS (10:44)
--- NOTE | 2019-08-18 11:10 | NURSING ---
This RN taking over care at this time
--- NOTE | 2019-08-18 11:23 | CT_ITS ---
STUDY: CTA HEAD AND NECK WITH CONTRAST REASON FOR EXAM: Male, 79 years old. Subacute lacunar ischemic infarct in the left upper cerebellar hemisphere and acute lacunar ischemic infarcts in the right anterior external capsule and right lateral globus pallidus. RADIATION DOSAGE (If Supplied By Facility): CTDIvol = ( 21.39 ) mGy, DLP = ( 655.88 ) mGycm TECHNIQUE: CT angiography was performed with a multi-detector CT scanner. Data acquisition was obtained from the skull base through the vertex following intravenous administration of IV Isovue 300 100mL. MIP images were reconstructed from the axial data set. Post-processing of the angiographic images was performed, with multiplanar reformation and 3D reconstruction. Individualized dose optimization techniques were used for this CT. COMPARISON: 02/13/2015. FINDINGS: Normal bilateral petrous carotid arteries. Nonocclusive calcified plaques along the right cavernous internal carotid artery. Mild stenosis of the right supraclinoid internal carotid artery due to calcified atherosclerotic plaques. Nearly 50% stenosis of the right posterior communicating artery at its ICA origin. Normal right supraclinoid ICA bifurcation. Nonocclusive calcified plaques along the cavernous segments of the left internal cord artery. Widely patent left supraclinoid ICA bifurcation. Normal right A1 segment of the anterior cerebral artery. Normal left A1 segment of the anterior cerebral artery. Normal intact anterior communicating artery (ACOM). Normal bilateral A2 segments of the anterior cerebral arteries. High-grade stenosis in the right distal M1 segment proximal to the right M1 bifurcation. This was previously less than 50% stenosis. More than 50% stenosis in the distal third of the left M1 segment, previously at 50%. This also extends farther into the left M1 bifurcation at 50% stenosis minimal plaques in the left M2 segments without significant stenosis. 50% stenosis at the origin of the right posterior communicating artery. Widely patent left posterior communicating artery (PCOM). Occluded intradural segment of the right vertebral artery with extensive calcified plaques. Contrast opacification of the smaller right PICA is collateral flow from the left PICA. There is also occlusion in the intradural segment of the left vertebral artery due to calcified plaques. The occlusion is distal to the origin of the left PICA. There is nearly 50% stenosis in the intradural segment of the left vertebral artery which is at the origin of the left PICA. Extensive calcified plaques in the proximal basilar artery which is most likely occluded. Small caliber of the distal basilar apex is most likely developmental. Widely patent posterior communicating arteries provide retrograde collateral flow to the basilar artery and the superior cerebellar arteries. There are also provide the main arterial supply to both [employer]fter elect[employer]chanical. Normal bilateral P1, P2 and visualized P3 segments of the posterior cerebral arteries. There is no demonstrated aneurysm of the [place]. The subacute lacunar ischemic infarct in the left upper cerebellar hemisphere and the acute lacunar ischemic infarcts in the right anterior external capsule and right lateral globus pallidus are obvious only on recent MRI of the brain DWI sequence. AORTIC ARCH: Normal visualized aortic arch. Normal origins of the brachiocephalic, left common carotid, and left subclavian arteries. RIGHT CAROTID ARTERIES: Normal right common carotid artery (CCA). Minimally occlusive calcified plaques in the right common carotid artery bifurcation and the origin of the right internal carotid artery bulb. The right internal carotid artery bulb and right proximal internal carotid artery remain widely patent. Widely patent visualized cervical portion of the right internal carotid artery. Normal origin of the right external carotid artery (ECA). LEFT CAROTID ARTERIES: Normal left common carotid artery (CCA). Nonocclusive calcified plaques in the left common carotid artery and nonocclusive calcified plaques along the left internal carotid artery bulb. Widely patent left internal carotid artery bulb and left proximal internal carotid artery. Widely patent visualized cervical portion of the left internal carotid artery. Minimal occlusive calcified plaques at the origin of the left external carotid artery (ECA). VERTEBRAL ARTERIES: Widely patent cervical segments of both vertebral arteries. CT/CTA Head AND Neck W/ Contrast IMPRESSION: 1. High-grade stenosis in the right distal M1 segment proximal to the right M1 bifurcation, previously less than 50% stenosis. 2. More than 50% stenosis in the distal third of the left M1 segment, previously at 50%. This also extends farther into the left M1 bifurcation at 50% stenosis. 3. Occluded intradural segment of the left vertebral artery distal to the origin of the left posterior inferior cerebral artery but there is nearly 50% stenosis of the left vertebral artery at the origin of the left PICA. 4. Occluded intradural segment of the right vertebral artery with extensive calcified plaques are unchanged. Contrast opacification of the right PICA is collateral flow from the left PICA. 5. Occluded proximal basilar artery with extensive calcified plaques. 6. Contrast opacification of the distal two thirds of the basilar artery is retrograde collateral flow from the posterior communicating arteries. 7. 50% stenosis of the right posterior communicating artery at its origin. This was less than 50% in the previous study. 8. 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 This is unchanged. 9. Nonocclusive calcified plaques in both common carotid artery bifurcations and in both internal carotid artery bulbs. 10. Widely patent bilateral common carotid arteries and bilateral cervical internal carotid arteries. 11. Widely patent aortic arch and origins of the great vessels. Electronically Signed: Amando Andre MD at 13:10 EST , Service support ,
[2019-08-18 12:09] LABS: Potassium 4.7 mmol/L (3.5-5.1)
[2019-08-18] MEDS: Potassium Chloride 10mEq/100mL 10 MEQ/100 ML IV.SOLN. 80 MEQ IV BOLUS (12:39)
--- NOTE | 2019-08-18 12:47 | CON.PCM_ITS ---
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 Per patient he started having acute onset of dizziness yesterday 08/17/2019 at around 10:30 PM, when he felt the whole room was spinning, also had nausea, but denies any headache, focal motor weakness, visual disturbances or diplopia, speech disturbances or sensory loss. Per ED documentation NIHSS on admission was 0 and patient was not a TPA candidate. Per patient lives with , does not use cane or walker to ambulate, denies any frequent falls, does drive and does not need any assistance for ADLs. Patient he is on aspirin at baseline. Per patient he had recurrent episodes of dizziness in the past and after one such episode in February 2015 patient had a loop recorder implanted by Dr. Mcfarlane to see if any arrhythmias causing the dizziness. Per Dr. Mcfarlane's further note documentations in the following years there was no A. fib noted in the loop recorder, loop recorder was recently removed in December 2018. Per patient he never had any A. fib, and per Dr. Mcfarlane no documentation there is no history of A. fib. MRI brain done on admission reported to show small right anterior external capsule and right lateral globus pallidus infarct, small left cerebellar hemisphere infarct. MRA head/neck reported to show high-grade stenosis of both vertebral arteries and long segment high-grade stenosis along the basilar artery. [] Past Medical History Past Medical History (Chronic Problems): Chronic Problems (Last Reviewed 08/18/19 @ 06:12 by Santo Cedeño MD) Other specified cardiac device in situ (Chronic) Paroxysmal atrial fibrillation (Chronic) Presence of aortocoronary bypass graft (Chronic) 02/17/2015 CABG: NGUYEN to LAD, SVG to OM, and posterolateral bundles and also to ramus intermedius @ [facility] Atherosclerotic heart disease of [place] coronary artery without angina pectoris (Chronic) 02/17/2015 CABG: NGUYEN to LAD, SVG to OM, and posterolateral bundles and also to ramus intermedius @ [facility] HLD (hyperlipidemia) (Chronic) HTN (hypertension) (Chronic) Hyperlipidemia (Chronic) Gout (Chronic) CAD (coronary artery disease) (Chronic) severe going for cabg Cerebrovascular disease (Chronic) 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) NGUYEN to LAD, SVG to OM, Posterolateral bundles, & ramus intermedius @ [facility] Occlusion of both vertebral arteries (Chronic) Vertigo (Chronic) Medical History: Medical History (Last Reviewed 08/18/19 @ 06:12 by Santo Cedeño MD) Other specified cardiac device in situ (Chronic) Z95.818 Paroxysmal atrial fibrillation (Chronic) I48.0 Atherosclerotic heart disease of [place] coronary artery without angina pectoris (Chronic) I25.10 02/17/2015 CABG: NGUYEN to LAD, SVG to OM, and posterolateral bundles and also to ramus intermedius @ [facility] HLD (hyperlipidemia) (Chronic) E78.5 HTN (hypertension) (Chronic) I10 Allergies losartan Adverse Reaction (Intermediate, Verified 08/18/19 01:02) Nasal congestion & cough lisinopril Adverse Reaction (Verified 08/18/19 01:02) Other Sulfa (Sulfonamide Antibiotics) Adverse Reaction (Verified 08/18/19 01:02) Unknown Home Medications: Ambulatory Orders Medication Instructions Recorded Allopurinol [Zyloprim] 300 mg PO DAILY #30 tab 05/27/14 Aspirin [Aspirin, Baby] 81 mg PO DAILY #30 05/27/14 Simvastatin [Zocor] 20 mg PO QHS 04/15/15 Amlodipine [Norvasc] 5 mg PO DAILY 05/25/16 hydrochlorothiazide 12.5 mg capsule 12.5 mg PO QDAY 11/17/17 Surgical History: Surgical History (Last Reviewed 08/18/19 @ 06:12 by Santo Cedeño MD) Presence of aortocoronary bypass graft (Chronic) Z95.1 02/17/2015 CABG: NGUYEN to LAD, SVG to OM, and posterolateral bundles and also to ramus intermedius @ [facility] Surgical History: coronary bypass surgery, herniorrhaphy, - Psychiatric History: No pertinent psych hx Lives: Spouse/ Significant Other Smoking Status: Former smoker - *Family History Maternal Family History: Family History (Last Reviewed 08/18/19 @ 06:12 by Santo Cedeño MD) Father Hypertension Brother CVA (cerebral vascular accident) Diabetes History Items: Hypertension Paternal Family History: Family History (Last Reviewed 08/18/19 @ 06:12 by Santo Cedeño MD) Father Hypertension Brother CVA (cerebral vascular accident) Diabetes History Items: Hypertension Sibling Family History: Family History (Last Reviewed 08/18/19 @ 06:12 by Santo Cedeño MD) Father Hypertension Brother CVA (cerebral vascular accident) Diabetes History Items: Hypertension Review of Systems Constitutional: Reports: - - Complete ROS negative except as documented in HPI Patient Problems: Active and Suspected Problems (Last Reviewed 08/18/19 @ 06:12 by Santo Cedeño MD) Hypokalemia (Acute) Stroke (Acute) Dizziness (Acute) - Physical Exam Vitals/I&O's: Vital Signs Temp Pulse Resp BP Pulse Ox 97.9 F 64 16 137/73 H 96 08/18/19 11:10 08/18/19 11:10 08/18/19 11:10 08/18/19 11:10 08/18/19 11:10 Oxygen Flow Rate (L/min) 3 Oxygen Delivery Method Room Air Weight: 75.3 kg Body Mass Index (BMI) 27.6 Finger Stick Blood Glucose 140 Intake and Output for Last 24 Hours 08/16/19 08/17/19 08/18/19 23:59 23:59 23:59 Intake Total 1040.0 / 1040.0 Output Total 900 / 900 Balance 140.0 / 140.0 General: Alert HEENT: Normocephalic Neck: Supple Lungs: Normal air movement Cardiovascular: Normal S1, Normal S2 Abdomen: Bowel Sounds Present Extremities: No cyanosis Neurological: - - Conscious, alert, AOA x3, CN II to XII grossly intact, power 5/5 both upper and lower extremities, plantars B/L flexor, no pronator drift, no sensory loss, no cerebellar signs, gait deferred, reflexes + B/L B/S/T/K/A, No NR, fundus not visualized, NIHSS 0 at present, mRS 0 at baseline Psych/Mental Status: Normal Affect Laboratory Results 08/18/19 00:55: WBC 9.3, RBC 4.82, Hgb 15.8, Hct 44.4, MCV 92.1, MCH 32.8 H, MCHC 35.6, RDW Std Deviation 50.4 H, RDW Coeff of Fe 14.9 H, Plt Count 180, MPV 10.8, Immature Gran % (Auto) 0.100, Neut % (Auto) 28.6 L, Lymph % (Auto) 57.8 H , [place] % (Auto) 9.4, Eos % (Auto) 3.2, Baso % (Auto) 0.9, Absolute Neuts (auto) 2.7, Absolute Lymphs (auto) 5.36 H, Nucleated RBC % 0, Differential Comment SCANNED 08/18/19 00:55: Sodium 138, Potassium 2.8 L, Chloride 104, Carbon Dioxide 25.0, Anion Gap 9, BUN 26 H, Creatinine 1.05, Estim Creat Clear Calc 49.62, Est GFR (MDRD) Af Amer 88, Est GFR (MDRD) Non-Af 72, BUN/Creatinine Ratio 24.8 H, Glucose 140 H, Calcium 9.2, Total Bilirubin 0.40, AST 27, ALT 26, Alkaline Phosphatase 66, Troponin I 0.017, Total Protein 7.3, Albumin 4.0, Globulin 3.3, Albumin/Globulin Ratio 1.2, Lipase 170 08/18/19 02:05: Urine Color Yellow, Urine Clarity Clear, Urine pH 8.0, Ur Specific [place] 1.015, Urine Protein 30 H, Urine Glucose (UA) Normal, Urine Ketones 15 H, Urine Occult Blood Negative, Urine Nitrite Negative, Urine Bilirubin Negative, Urine Urobilinogen Normal, Ur Leukocyte Esterase Negative, Urine RBC 0 SEEN, Urine WBC 0 SEEN, Ur Squamous Epith Cells 0-5 SEEN, Urine Bacteria RARE, Urine Mucus 0 SEEN 08/18/19 11:45: Potassium 4.7 Current Medications Acetaminophen (Tylenol) 650 mg PO Q6H PRN PRN PRN Reason: Pain Score 1-3/Temp > 100.7 F [facility]) [facility] Last Admin: 08/18/19 10:12 Dose: 300 mg Documented by: Aspirin (Aspirin, Baby) [facility] Last Admin: 08/18/19 08:13 Dose: 81 mg Documented by: Atorvastatin Calcium (Lipitor) 10 mg PO QHS [facility] Dextrose (D50w Syringe) 0 gm IV X1 PRN; Protocol PRN Reason: Hypoglycemia Diazepam (Valium) 4 mg PO 4X/DAY PRN PRN PRN Reason: VERTIGO Enoxaparin Sodium (Lovenox) 40 mg SC DAILY@1000 [facility] Last Admin: 08/18/19 10:12 Dose: 40 mg Documented by: Glucagon () 1 mg IM .X1 PRN PRN Reason: Hypoglycemia Labetalol HCl (Trandate) 10 mg IV Q10M PRN PRN PRN Reason: SBP > 220 OR DBP > 120 Meclizine HCl (Antivert) 12.5 mg PO TID [facility] Last Admin: 08/18/19 08:13 Dose: 12.5 mg Documented by: Ondansetron HCl (Zofran) 4 mg IV Q8H PRN PRN PRN Reason: NAUSEA/VOMITING Sodium Chloride () 10 - 40 ml IV UD PRN PRN Reason: SALINE FLUSH Last Admin: 08/18/19 11:06 Dose: 10 ml Documented by: Assessment/Plan All Active Problems (Last Reviewed 08/18/19 @ 06:12 by Santo Cedeño MD) Hypokalemia (Acute) Stroke (Acute) Dizziness (Acute) Encounter for loop recorder at end of battery life (Acute) The patient is a 79 year old M with PMH HTN, HLD, 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 Per patient he started having acute onset of dizziness yesterday 08/17/2019 at around 10:30 PM, when he felt the whole room was spinning, also had nausea, but denies any headache, focal motor weakness, visual disturbances or diplopia, speech disturbances or sensory loss. Per ED documentation NIHSS on admission was 0 and patient was not a TPA candidate. Per patient lives with , does not use cane or walker to ambulate, denies any frequent falls, does drive and does not need any assistance for ADLs. Patient he is on aspirin at baseline. Per patient he had recurrent episodes of dizziness in the past and after one such episode in February 2015 patient had a loop recorder implanted by Dr. Mcfarlane to see if any arrhythmias causing the dizziness. Per Dr. Mcfarlane's further note documentations in the following years there was no A. fib noted in the loop recorder, loop recorder was recently removed in December 2018. Per patient he never had any A. fib, and per Dr. Mcfarlane no documentation there is no history of A. fib. MRI brain done on admission reported to show small right anterior external capsule and right lateral globus pallidus infarct, small left cerebellar hemisphere infarct. 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 once daily and Plavix 75 mg p.o. once daily. Dual antiplatelet for 3 months then switch to single antiplatelet with aspirin. Bleeding risk discussed in detail with the patient -Lipitor 40 mg PO q hs -MRI brain images reviewed, MRA head/neck reviewed -CTA head/neck -HbA1c, LDL -TTE -30-day event recorder on discharge -Stroke risk factors discussed and stroke education provided -Permissive HTN for 24 hrs. Avoid hypotension -shelter goal BP < 130/80 mmHg, goal LDL < 70 and goal Hba1c < 7% -PT/OT/ST -GI/DVT prophylaxis -Fall precautions -Further medical management per hospitalist team -Please call with questions if any -Follow-up with neurology in 4 weeks -Thank you for allowing us to participate in patient's care and management This note has been generated using [employer] dictation software. It may contain incorrect words, spellings and punctuation that were not noted in the review of the note prior to signing Code Visit Inpatient E&M: 98849 Init Hosp L3
--- NOTE | 2019-08-18 13:18 | PCM.PN.HOSP ---
Patient Problems: Active and Suspected Problems (Last Reviewed 08/18/19 @ 06:12 by Santo Cedeño MD) Hypokalemia (Acute) Stroke (Acute) Dizziness (Acute) Subjective: Patient seen and examined. He was admitted with a complaint of acute onset dizziness. Currently has no complaints. Dizziness is abated. He says he had a similar episode of dizziness several years ago when he was having open heart surgery and that resolved. He denies any lightheadedness, palpitations, chest pain, tingling or numbness, any focal weakness, diarrhea vomiting. Review of systems otherwise negative. Labs and vitals reviewed. Vitals/I&O's: Vital Signs Temp Pulse Resp BP Pulse Ox 97.9 F 64 16 137/73 H 96 08/18/19 11:10 08/18/19 11:10 08/18/19 11:10 08/18/19 11:10 08/18/19 11:10 Oxygen Flow Rate (L/min) 3 Oxygen Delivery Method Room Air Weight: 166 lb 0.129 oz Body Mass Index (BMI) 27.6 Finger Stick Blood Glucose 140 Intake and Output for Last 24 Hours 08/16/19 08/17/19 08/18/19 23:59 23:59 23:59 Intake Total 1040.0 / 1040.0 Output Total 900 / 900 Balance 140.0 / 140.0 General: Alert, Oriented x3, Cooperative, No apparent distress HEENT: Atraumatic, PERRLA, EOMI, Normocephalic Oral: Moist Mucosa Neck: Supple, No JVD, Negative Carotid Bruits Lungs: Clear to auscultation, Normal air movement, No rhonchi, No wheeze, No rales Cardiovascular: Regular rate, Regular Rhythm, Normal S1, Normal S2, No murmurs Abdomen: Bowel Sounds Present, Soft, Non Tender, Non-Distended, No Hepato-splenomegaly Extremities: No clubbing, No cyanosis, No edema, Capillary Refill Less than 3 Seconds Skin: No rashes, No breakdown Musculoskeletal: No Tenderness to Palpation of Joints or Extremities Lymphatic: No Cervical, Supraclavicular, or Inguinal Adenopathy Neurological: Cranial nerves II-XII grossly intact, Neuro grossly intact, Motor Exam 5/5 strength throughout Psych/Mental Status: Normal Affect, Appropriate, Alert and oriented to time, place, person, mood and affect Laboratory Results 08/18/19 00:55: WBC 9.3, RBC 4.82, Hgb 15.8, Hct 44.4, MCV 92.1, MCH 32.8 H, MCHC 35.6, RDW Std Deviation 50.4 H, RDW Coeff of Fe 14.9 H, Plt Count 180, MPV 10.8, Immature Gran % (Auto) 0.100, Neut % (Auto) 28.6 L, Lymph % (Auto) 57.8 H, [place] % (Auto) 9.4, Eos % (Auto) 3.2, Baso % (Auto) 0.9, Absolute Neuts (auto) 2.7, Absolute Lymphs (auto) 5.36 H, Nucleated RBC % 0, Differential Comment SCANNED 08/18/19 00:55: Sodium 138, Potassium 2.8 L, Chloride 104, Carbon Dioxide 25.0, Anion Gap 9, BUN 26 H, Creatinine 1.05, Estim Creat Clear Calc 49.62, Est GFR (MDRD) Af Amer 88, Est GFR (MDRD) Non-Af 72, BUN/Creatinine Ratio 24.8 H, Glucose 140 H, Calcium 9.2, Total Bilirubin 0.40, AST 27, ALT 26, Alkaline Phosphatase 66, Troponin I 0.017, Total Protein 7.3, Albumin 4.0, Globulin 3.3, Albumin/Globulin Ratio 1.2, Lipase 170 08/18/19 02:05: Urine Color Yellow, Urine Clarity Clear, Urine pH 8.0, Ur Specific [place] 1.015, Urine Protein 30 H, Urine Glucose (UA) Normal, Urine Ketones 15 H, Urine Occult Blood Negative, Urine Nitrite Negative, Urine Bilirubin Negative, Urine Urobilinogen Normal, Ur Leukocyte Esterase Negative, Urine RBC 0 SEEN, Urine WBC 0 SEEN, Ur Squamous Epith Cells 0-5 SEEN, Urine Bacteria RARE, Urine Mucus 0 SEEN 08/18/19 11:45: Potassium 4.7 Diagnostic Data Chest X-Ray 08/18/19 01:02 IMPRESSION: Cardiomegaly with bibasilar platelike atelectatic changes Electronically Signed: Evgeny Reyna MD at 1:41 EST Tel , Service support , Brain CT 08/18/19 03:18 IMPRESSION: No acute findings in the brain Electronically Signed: Evgeny Reyna MD at 4:43 EST Tel , Service support , Brain MRI 08/18/19 06:46 IMPRESSION: 1. 2 acute microembolic lacunar ischemic infarcts in the right anterior external capsule and the right lateral globus pallidus. 2. Small subacute lacunar ischemic infarct in the left upper cerebellar hemisphere. 3. No other additional findings or changes since 04/15/2015. Electronically Signed: Amando Andre MD at 10:50 EST , Service support , ADDENDUM: 08/18/19 1103 IMPRESSION: 1. 2 acute microembolic lacunar ischemic infarcts in the right anterior external capsule and the right lateral globus pallidus. 2. Small subacute lacunar ischemic infarct in the left upper cerebellar hemisphere. 3. No other additional findings or changes since 04/15/2015. N.B. : The above information has been verbally conveyed by Amando Andre MD to Anette Holliday RN, on 08/18/2019 10:56:23 (ET). Electronically Signed: Amando Andre MD at 10:50 EST , Service support , Head MRA 08/18/19 06:46 IMPRESSION: 1. Suspicious high-grade stenosis in the intradural segments of both vertebral arteries and suspicious long segment high-grade stenosis along the basilar artery. 2. Please see MRI brain showing acute lacunar ischemic infarcts in the right anterior external capsule and right lateral globus pallidus and subacute lacunar ischemic infarct in the left cerebellum. RECOMMENDATION: CTA of the head and neck for further evaluation if there are no contrast contraindications. Electronically Signed: Amando Andre MD at 11:00 EST , Service support , ADDENDUM: 08/18/19 1125 Neck MRA 08/18/19 06:46 IMPRESSION: 1. 50% stenosis of the mid cervical segment of the right common carotid artery. 2. Widely patent left common carotid artery, bilateral common carotid bifurcations, bilateral internal and external carotid arteries. 3. High-grade stenosis of the proximal basilar artery and suspicious high-grade stenosis in the intradural segments of both vertebral arteries at their respective VB junctions. When compared to CTA head and neck of 02/13/2015, the right common carotid artery stenosis is a new finding. High-grade stenosis of the proximal basilar artery and probable occlusion of the distal basilar apex with collateral flow from both posterior communicating arteries providing arterial supply to both [employer] territories were present previously. RECOMMENDATION: CTA of the head and neck for further evaluation. Electronically Signed: Amando Andre MD at 11:13 EST , Service support , Head/Neck CTA 08/18/19 11:23 IMPRESSION: 1. High-grade stenosis in the right distal M1 segment proximal to the right M1 bifurcation, previously less than 50% stenosis. 2. More than 50% stenosis in the distal third of the left M1 segment, previously at 50%. This also extends farther into the left M1 bifurcation at 50% stenosis. 3. Occluded intradural segment of the left vertebral artery distal to the origin of the left posterior inferior cerebral artery but there is nearly 50% stenosis of the left vertebral artery at the origin of the left PICA. 4. Occluded intradural segment of the right vertebral artery with extensive calcified plaques are unchanged. Contrast opacification of the right PICA is collateral flow from the left PICA. 5. Occluded proximal basilar artery with extensive calcified plaques. 6. Contrast opacification of the distal two thirds of the basilar artery is retrograde collateral flow from the posterior communicating arteries. 7. 50% stenosis of the right posterior communicating artery at its origin. This was less than 50% in the previous study. 8. 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 This is unchanged. 9. Nonocclusive calcified plaques in both common carotid artery bifurcations and in both internal carotid artery bulbs. 10. Widely patent bilateral common carotid arteries and bilateral cervical internal carotid arteries. 11. Widely patent aortic arch and origins of the great vessels. Electronically Signed: Amando Andre MD at 13:10 EST , Service support , Current Medications Acetaminophen (Tylenol) 650 mg PO Q6H PRN PRN PRN Reason: Pain Score 1-3/Temp > 100.7 F [facility]) [facility] Last Admin: 08/18/19 10:12 Dose: 300 mg Documented by: Aspirin (Aspirin, Baby) [facility] Last Admin: 08/18/19 08:13 Dose: 81 mg Documented by: Atorvastatin Calcium (Lipitor) 10 mg PO QHS [facility] Dextrose (D50w Syringe) 0 gm IV X1 PRN; Protocol PRN Reason: Hypoglycemia Diazepam (Valium) 4 mg PO 4X/DAY PRN PRN PRN Reason: VERTIGO Enoxaparin Sodium (Lovenox) 40 mg SC DAILY@1000 [facility] Last Admin: 08/18/19 10:12 Dose: 40 mg Documented by: Glucagon () 1 mg IM .X1 PRN PRN Reason: Hypoglycemia Labetalol HCl (Trandate) 10 mg IV Q10M PRN PRN PRN Reason: SBP > 220 OR DBP > 120 Meclizine HCl (Antivert) 12.5 mg PO TID [facility] Last Admin: 08/18/19 08:13 Dose: 12.5 mg Documented by: Ondansetron HCl (Zofran) 4 mg IV Q8H PRN PRN PRN Reason: NAUSEA/VOMITING Sodium Chloride () 10 - 40 ml IV UD PRN PRN Reason: SALINE FLUSH Last Admin: 08/18/19 11:06 Dose: 10 ml Documented by: STROKE Vital Signs/Narrative: Vital Signs Temp Pulse Resp BP Pulse Ox 08/18/19 11:10 97.9 F 64 16 137/73 H 96 08/18/19 11:02 64 08/18/19 10:15 64 Medical Necessity - Tobacco Use Smoking Status: Former smoker Assessment/Plan All Active Problems (Last Reviewed 08/18/19 @ 06:12 by Santo Cedeño MD) Hypokalemia (Acute) Stroke (Acute) Dizziness (Acute) Encounter for loop recorder at end of battery life (Acute) 1. vertigo due to CVA vertigo and dizziness have resolved MRI of head showed 2 acute microembolic lacunar ischemic infarcts in right anterior external capsule and right lateral globus pallidus, small subacute lacunar ischemic infarct in left upper cerebellar hemisphere MRA head/neck: suspicious high grade stenosis in vertebral arteries and suspicious long segment high grade stenosis along basilar artery, 50% stenosis of mid cervical segment of right common carotid artery CTA head/neck with contrast:high grade stenosis neurology consulted NIHSS as per stroke protocol check lipid panel; start atorvastatin 40mg qhs get 2D echo keep BP<130/80mmHg check A1C per neurology, to be on aspirin and plavix for 3 months, then switch to single antiplatelet with aspirin. to have 30 day event loop recorder consult PT./OT fall precautions 2. Hypokalemia: K was 2.8. resolved with replacement. repeat K ws 4.7 3. Hypertension: fairly controlled. Resume HCTZ and amlodipine tomorrow. Goal BP will be <130/80mmhg 4. CAD s/p CABG: on aspirin and atorvastatin 10mg qhs. Will switch to high intensity dose- 40mg qhs DVT prophylaxis: lovenox Code Visit Inpatient E&M: 03484 Subs Hosp L3
--- NOTE | 2019-08-18 13:29 | ECHOCS_ITS ---
Reason For Study: TIA/CVA Procedure This was a 2D Doppler, Color Flow transthoracic echocardiogram. The study was technically difficult. Contrast injection was performed. Exam performed portable in patient room. Left Ventricle Normal LV size. Left ventricular systolic function is normal. The estimated ejection fraction is 55 %. Stage 1 diastolic dysfunction. No regional wall motion abnormalities noted. Right Ventricle Normal RV size. Normal systolic function. Atria The left atrium is moderately enlarged. Normal right atrium. Bubble contrast study negative for right to left interatrial shunt. Mitral Valve There is mild mitral annular calcification. Trivial mitral valve insufficiency. Tricuspid Valve Normal tricuspid valve. Trivial tricuspid valve insufficiency. Right ventricular systolic pressure estimated to be 29 mmHg. Aortic Valve Trisinus/trileaflet aortic valve. Pulmonic Valve The pulmonic valve is not well visualized. Great Vessels Mildly dilated aortic root. The pulmonary artery is normal size. Normal inferior vena cava. Pericardium/Pleural No pericardial effusion. Medication Diluted definity 3ml given slow IV push to enhance endocardial definition. Performed a rapid injection of agitated mix of 9 cc saline and 1cc air to assess for atrial septal defect. MMode/2D Measurements & Calculations LVIDd: 4.6 cm IVSd: 1.5 cm Ao root diam: 4.0 cm LVIDs: 3.4 cm LVPWd: 1.5 cm FS: 27.2 % LAV(MOD-bp): 84.2 ml LA A4 area: 25.9 cm2 RA A4 area: 15.1 cm2 LAV(MOD-bp) Indexed: 46.1 ml/m2 LAV(MOD-sp2): 82.1 ml LAV(MOD-sp4): 86.3 ml Time Measurements MV dec time: 0.28 sec Doppler Measurements & Calculations MV E max jayme: 46.1 cm/sec Lat Peak E' Jayme: 8.0 cm/sec Med Peak E' Jayme: 8.6 cm/sec MV A max jayme: 96.3 cm/sec E/E' lat: 5.8 E/E' med: 5.3 MV E/A: 0.48 MV V2 max: 96.6 cm/sec MV P1/2t max jayme: 66.4 cm/sec Ao V2 max: 150.6 cm/sec MV max P.7 mmHg MV P1/2t: 97.7 msec Ao max P.1 mmHg MV V2 mean: 42.4 cm/sec MV dec slope: 199.1 cm/sec2 MV mean P.89 mmHg MV V2 VTI: 26.1 cm MVA(P1/2t): 2.3 cm2 AI max jayme: 346.4 cm/sec LV V1 max: 132.9 cm/sec PA V2 max: 88.3 cm/sec AI max P.0 mmHg LV V1 max P.1 mmHg AI dec slope: 252.3 cm/sec2 AI P1/2t: 402.1 msec TR max jayme: 269.4 cm/sec TR max P.0 mmHg Interpretation Summary Normal LV size. Left ventricular systolic function is normal. The estimated ejection fraction is 55 %. Stage 1 diastolic dysfunction. The left atrium is moderately enlarged. Bubble contrast study negative for right to left interatrial shunt. Contrast injection was performed. Ordering Physician: Christine Olson Referring Physician: MITCH Ram M.D. Performed By: Hayden Dick RCS
--- NOTE | 2019-08-18 13:35 | CASEMGMT ---
BINH DARBY assessment: Face to Face with patient for initial transition planning/care coordination assessment. BINH DARBY introduced self and role at [facility], pt voices understanding and consents to assessment at this time. Pt is lying in bed in no distress at this time. Pt is A/Ox4 at this time and answers all questions appropriately at this time. Care providers, pharmacy, and demographics verified/updated at this time. PCP: Yo MEYER Specialists: Pt states no current specialists. Preferred Pharmacy: [facility] Insurance: MCR A/B, [employer] Prescription Benefit: MCR D Living Will/HPOA: Pt states has LW/HPOA and is aware that they are not currently on file at [facility] at this time. Pt states that his , Sona Cronin, is HPOA. Pt encouraged to bring AD's when able. LNOK: Sona Cronin, ; Thad Cronin, son Living Arrangements: Pt states lives with in 1 story home with a basement and states no concerns at home at this time. Pt states is normally independent with ADL's. Transportation: Pt states drives self and states no transportation concerns at this time. DME/HHC: Pt states has a cane, walker, and shower chair but does not normally use and states no need for any further DME at this time. Pt states did have HHC s/p open heart in the past but has never been to SNF. Pt states no need for any further therapy at this time and declines OP therapy. Pt states no concerns with going home at time of discharge. Pt states is retired. Pt states does not smoke or drink ETOH. Pt states no further concerns/needs at this time. CM to follow PT/OT evals and for any further discharge planning/needs. Advised pt to ask for CM if any further questions/concerns/needs arise, voices understanding. Pt Goal: Home Plan[place]H [place]AR[place]
[2019-08-18 14:00] LABS: Cholesterol 93 mg/dL (200); High Density Lipoprotein 45 mg/dL; Triglycerides 62 mg/dL; Very Low Density Lipoprotein 12 mg/dL (5-40)
[2019-08-18 14:16] LABS: Hemoglobin A1c 6.1 % (4.2-6.3)
--- NOTE | 2019-08-18 15:11 | CASEMGMT ---
SW completed a PHQ-9 with patient as he had a Stroke. He scored a 0 which indicates no depression. Mirian ROCKWELL MSW
[2019-08-18] MEDS: Atorvastatin Calcium 40 MG Tablet PO (22:47)
[2019-08-19 01:45] VITALS: BP 149/66; PULSE 64; RESP 18; TEMP 36.9; O2SAT 95
[2019-08-19 03:12] VITALS: PULSE 60
[2019-08-19 05:45] VITALS: BP 154/76; PULSE 60; RESP 16; TEMP 36.6; O2SAT 94
[2019-08-19] MEDS: Meclizine 12.5 MG Tablet PO (06:40)
[2019-08-19 06:47] LABS: Absolute Lymphocyte Count 2.39 X10^3/uL (0.83-4.51); Absolute Neutrophil Count 2.9 X10^3/uL (2.0-7.7); Basophil# 0.06 X10^3/uL; Eosinophils% 4.8 % (0-5); Hematocrit 42.2 % (40-54); Hemoglobin 13.9 g/dL (13.0-16.5); Lymphocyte # 2.39 X10^3/ul (4.0); Lymphocyte % 38.2 % (19-41); Mean Corp Hgb Conc 32.9 g/dL (32-36); Mean Corpuscular Hgb 31.7 pg (27.0-32.0); Mean Corpuscular Volume 96.3 fL (80-94); Mean Platelet Vol. 11.4 fl (6.2-12.0); Monocyte# 0.62 X10^3/uL; Monocyte% 9.9 % (0-10); NRBC Flagged by Analyzer 0 % (0-5); Neutrophil # 2.88 X10^3/uL (2.7-7.7); Neutrophil % 45.9 % (47-70); Platelet Count 155 K/mm3 (150-450); RBC Distribution Width CV 15.6 % (11.6-14.6); RBC Distribution Width SD 55.5 fl (35.1-43.9); Red Blood Count 4.38 M/mm3 (4.6-6.2); White Blood Count 6.3 K/mm3 (4.4-11.0)
[2019-08-19 07:01] VITALS: PULSE 57
[2019-08-19 07:14] LABS: Anion Gap 5 (5-15); BUN 24 mg/dL (7-18); BUN/Creat Ratio 22.4 RATIO (10-20); Calcium,Total 8.3 mg/dL (8.5-10.1); Chloride 110 mmol/L (98-107); Creatinine, Serum 1.07 mg/dL (0.70-1.30); EST Glomerular Filtration Rate 71 mL/min (>60); Est Glom Filt Rate - Afr Amer 86 mL/min (>60); Glucose 105 mg/dL (74-106); Magnesium 2.2 mg/dL (1.6-2.6); Potassium 4.2 mmol/L (3.5-5.1); Sodium Level 140 mmol/L (136-145)
[2019-08-19 08:00] VITALS: O2SAT 95
[2019-08-19] MEDS: Enoxaparin 40 MG/0.4 ML Syringe SC (09:36)
[2019-08-19] MEDS: Aspirin 81 MG TAB.CHEW PO (09:36)
[2019-08-19] MEDS: Allopurinol 300 MG Tablet PO (09:36)
[2019-08-19 09:40] VITALS: BP 130/67; PULSE 62; RESP 16; TEMP 36.4; O2SAT 95
[2019-08-19] MEDS: Clopidogrel Bisulfate 75 MG Tablet PO (09:56)
--- NOTE | 2019-08-19 09:57 | PCM.DC ---
- Discharge Diagnoses Current Active Problems: Current Active and Chronic Problems (Last Reviewed 08/18/19 @ 06:12 by Santo Cedeño MD) Hypokalemia (Acute) Stroke (Acute) Dizziness (Acute) Vertigo (Chronic) You will use the following diet at home:: Cardiac Your food should be the consistency of: Regular Your liquids should be the consistency of: Regular/Thin Discharge Activity: Return to Normal Activity Weight Bearing Status: Weight bearing as tolerated Call your doctor if you observe: Dizziness, Fainting spells Instructions: Stroke and Heart Disease, What Is Ischemic Stroke?, Stroke: Taking Medications, Your Heart's Electrical System, What Is Atrial Flutter/Atrial Fibrillation? Additional Instructions: to have 30 day event recorder- results are to be sent to Dr Mcfarlane for reading. Allergies/Adverse Reactions: Allergies losartan Adverse Reaction (Intermediate, Verified 08/18/19 01:02) Nasal congestion & cough lisinopril Adverse Reaction (Verified 08/18/19 01:02) Other Sulfa (Sulfonamide Antibiotics) Adverse Reaction (Verified 08/18/19 01:02) Unknown Medications to take at Discharge Allopurinol [Zyloprim] 300 mg PO DAILY #30 tab 05/27/14 Aspirin [Aspirin, Baby] 81 mg PO DAILY #30 05/27/14 Amlodipine [Norvasc] 5 mg PO DAILY 05/25/16 hydrochlorothiazide 12.5 mg capsule 12.5 mg PO QDAY 11/17/17 Atorvastatin Calcium [Lipitor] 40 mg PO QHS #30 tab 08/19/19 Clopidogrel Bisulfate [Plavix] 75 mg PO DAILY #30 tab 08/19/19 The following prescriptions were given: Atorvastatin Calcium [Lipitor] 40 mg PO QHS #30 tab Transmission Status: Pending to [id number] Clopidogrel Bisulfate [Plavix] 75 mg PO DAILY #30 tab Transmission Status: Pending to [id number] Primary Care Physician: Carlos Ram III, MD [Primary Care Provider] - Please follow up with your Primary Care Physician in: one week Test Results: Test results from this visit will be discussed in further detail at your follow-up appointment, if applicable. Please Follow Up With: Dr Box- vascular neurologist - [phone] When: please call office for an appointment RAFIA Please Follow Up With: Jayy Mcfarlane MD When: 2-4 weeks Please Follow Up With: Lencho Dubon MD When: 1-2 weeks Proposed Discharge Date: 08/19/19
--- NOTE | 2019-08-19 10:03 | PCM.DC.SUM ---
Discharge Date and Diagnosis Date of Admission: 08/18/19 Date of Discharge: 08/19/19 - Primary Discharge Diagnosis Active and Suspected Problems (Last Reviewed 08/18/19 @ 06:12 by Santo Cedeño MD) Hypokalemia (Acute) Stroke (Acute) Dizziness (Acute) - Secondary Discharge Diagnosis Chronic Problems (Last Reviewed 08/18/19 @ 06:12 by Santo Cedeño MD) Other specified cardiac device in situ (Chronic) Paroxysmal atrial fibrillation (Chronic) Presence of aortocoronary bypass graft (Chronic) 02/17/2015 CABG: NGUYEN to LAD, SVG to OM, and posterolateral bundles and also to ramus intermedius @ [facility] Atherosclerotic heart disease of [place] coronary artery without angina pectoris (Chronic) 02/17/2015 CABG: NGUYEN to LAD, SVG to OM, and posterolateral bundles and also to ramus intermedius @ [facility] HLD (hyperlipidemia) (Chronic) HTN (hypertension) (Chronic) Hyperlipidemia (Chronic) Gout (Chronic) CAD (coronary artery disease) (Chronic) severe going for cabg Cerebrovascular disease (Chronic) 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 2 acute microembolic lacunar ischemic infarcts in the right anterior external capsule and the right lateral globus pallidus. 2. Small subacute lacunar ischemic infarct in the left upper cerebellar hemisphere. 3. No other additional findings or changes since 04/15/2015. Electronically Signed: Amando Andre MD at 10:50 EST , Service support , ADDENDUM: 08/18/19 1103 IMPRESSION: 1. 2 acute microembolic lacunar ischemic infarcts in the right anterior external capsule and the right lateral globus pallidus. 2. Small subacute lacunar ischemic infarct in the left upper cerebellar hemisphere. 3. No other additional findings or changes since 04/15/2015. N.B. : The above information has been verbally conveyed by Amando Andre MD to Anette Holliday RN, on 08/18/2019 10:56:23 (ET). Electronically Signed: Amando Andre MD at 10:50 EST , Service support , Head MRA 08/18/19 06:46 IMPRESSION: 1. Suspicious high-grade stenosis in the intradural segments of both vertebral arteries and suspicious long segment high-grade stenosis along the basilar artery. 2. Please see MRI brain showing acute lacunar ischemic infarcts in the right anterior external capsule and right lateral globus pallidus and subacute lacunar ischemic infarct in the left cerebellum. RECOMMENDATION: CTA of the head and neck for further evaluation if there are no contrast contraindications. Electronically Signed: Amando Andre MD at 11:00 EST , Service support , ADDENDUM: 08/18/19 1125 Neck MRA 08/18/19 06:46 IMPRESSION: 1. 50% stenosis of the mid cervical segment of the right common carotid artery. 2. Widely patent left common carotid artery, bilateral common carotid bifurcations, bilateral internal and external carotid arteries. 3. High-grade stenosis of the proximal basilar artery and suspicious high-grade stenosis in the intradural segments of both vertebral arteries at their respective VB junctions. When compared to CTA head and neck of 02/13/2015, the right common carotid artery stenosis is a new finding. High-grade stenosis of the proximal basilar artery and probable occlusion of the distal basilar apex with collateral flow from both posterior communicating arteries providing arterial supply to both [employer] territories were present previously. RECOMMENDATION: CTA of the head and neck for further evaluation. Electronically Signed: Amando Andre MD at 11:13 EST , Service support , Head/Neck CTA 08/18/19 11:23 IMPRESSION: 1. High-grade stenosis in the right distal M1 segment proximal to the right M1 bifurcation, previously less than 50% stenosis. 2. More than 50% stenosis in the distal third of the left M1 segment, previously at 50%. This also extends farther into the left M1 bifurcation at 50% stenosis. 3. Occluded intradural segment of the left vertebral artery distal to the origin of the left posterior inferior cerebral artery but there is nearly 50% stenosis of the left vertebral artery at the origin of the left PICA. 4. Occluded intradural segment of the right vertebral artery with extensive calcified plaques are unchanged. Contrast opacification of the right PICA is collateral flow from the left PICA. 5. Occluded proximal basilar artery with extensive calcified plaques. 6. Contrast opacification of the distal two thirds of the basilar artery is retrograde collateral flow from the posterior communicating arteries. 7. 50% stenosis of the right posterior communicating artery at its origin. This was less than 50% in the previous study. 8. 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 This is unchanged. 9. Nonocclusive calcified plaques in both common carotid artery bifurcations and in both internal carotid artery bulbs. 10. Widely patent bilateral common carotid arteries and bilateral cervical internal carotid arteries. 11. Widely patent aortic arch and origins of the great vessels. Electronically Signed: Amando Andre MD at 13:10 EST , Service support , neurology- Dr Dubon Operations: None Procedures: 2-D Echocardiogram Summary of Care Provided: Patient is a 79-year-old male with past medical history as listed. He was admitted through the ED on 08/18/2019 with a complaint of dizziness which started a few hours prior to presentation with associated spinning sensation. He also had nausea and dry heaving was so dizzy he could not stand up. Review of systems otherwise negative. He reported a similar episode of dizziness about 4 years ago when he had a heart attack and had to have CABG. Review of systems otherwise negative. He was admitted and managed for vertigo. CT of the head was essentially unremarkable. Of note, there was documented that patient had A. fib, he was no known to have any history of A. fib and he had had a loop recorder placed for about 4 years with no recurrence of A. fib. Cardiology documentation also showed that patient had never had any A. fib. MRI of the brain done showed small right anterior external capsule and right lateral globus pallidus infarct with small left cerebellar hemisphere infarcts. MRA of the head and neck showed high-grade stenosis of both vertebral arteries and long segment high-grade stenosis along with basilar artery. Patient was started on aspirin and Plavix and neurology was consulted. 2D echo done showed normal left ventricular systolic function and size and EF of 55% with stage I diastolic dysfunction and moderately enlarged left atrium with bubble contrast study negative for [id number] interatrial shunt. CT of the head and neck showed high-grade stenosis in the right distal M1 segment proximal to the right M1 right bifurcation more than 50% stenosis in the distal third of the left M1 segment and occluded intradural segment of the left vertebral artery and occluded intradural segment of the right vertebral artery as well as occluded proximal basilar artery and hypoplastic distal basilar apex but patent bilateral cervical internal carotid arteries. Patient remained stable. A1c checked was less than 7 and he was also started on high intensity statin. Per discussion with neurology, patient was referred to Dr. Wilson of vascular neurology specialist at [facility] on account of the extensive intracranial artery stenosis. He is to be on p.o. aspirin and Plavix daily for 3 months and afterwards to switch to single antiplatelet therapy with aspirin. He is to follow-up with his primary care doctor, cardiology and neurology. Patient was discharged home on 08/19/2019. Patient seen and examined prior to discharge. He had no complaints and felt very well. He was eager to be discharged home. Review of systems otherwise negative. Labs and vitals reviewed. Home medication reviewed and reconciled. o/e: Vital Signs Height 5 ft 5 in Weight: 166 lb 0.129 oz Weight in Pounds 166.0 lbs Pulse Ox 95 Temperature 97.6 F Pulse Rate 62 Respiratory Rate 16 Blood Pressure 130/67 Blood Pressure Position Sitting General: Alert, Oriented x3, Cooperative, No apparent distress HEENT: Atraumatic, PERRLA, EOMI, Normocephalic Oral: Moist Mucosa Neck: Supple, No JVD, Negative Carotid Bruits Lungs: Clear to auscultation, Normal air movement, No rhonchi, No wheeze, No rales Cardiovascular: Regular rate, Regular Rhythm, Normal S1, Normal S2, No murmurs Abdomen: Bowel Sounds Present, Soft, Non Tender, Non-Distended, No Hepato-splenomegaly Extremities: No clubbing, No cyanosis, No edema, Capillary Refill Less than 3 Seconds Skin: No rashes, No breakdown Musculoskeletal: No Tenderness to Palpation of Joints or Extremities Lymphatic: No Cervical, Supraclavicular, or Inguinal Adenopathy Neurological: Cranial nerves II-XII grossly intact, Neuro grossly intact, Motor Exam 5/5 strength throughout Psych/Mental Status: Normal Affect, Appropriate, Alert and oriented to time, place, person, mood and affect Plan as above. Patient to have 30-day event recorder placed before discharge and results are to be sent to his city surveyor Dr. Mcfarlane for interpretation. - Physical Exam Vitals/I&O's: Vital Signs Temp Pulse Resp BP Pulse Ox 97.6 F L 62 16 130/67 H 95 08/19/19 09:40 08/19/19 09:40 08/19/19 09:40 08/19/19 09:40 08/19/19 09:40 Oxygen Flow Rate (L/min) 3 Oxygen Delivery Method Room Air Weight: 166 lb 0.129 oz Body Mass Index (BMI) 27.6 Finger Stick Blood Glucose 140 Intake and Output for Last 24 Hours 08/17/19 08/18/19 08/19/19 23:59 23:59 23:59 Intake Total 2060.0 / 2060.0 200 / 200 Output Total 1475 / 1475 300 / 300 Balance 585.0 / 585.0 -100 / -100 Laboratory Results 08/18/19 00:55: Hemoglobin A1c 6.1 08/18/19 11:45: Potassium 4.7 08/18/19 11:45: Triglycerides 62, Cholesterol 93, LDL Cholesterol 36, VLDL Cholesterol 12, HDL Cholesterol 45 08/19/19 05:57: Sodium 140, Potassium 4.2, Chloride 110 H, Carbon Dioxide 25.0, Anion Gap 5, BUN 24 H, Creatinine 1.07, Estim Creat Clear Calc 48.70, Est GFR (MDRD) Af Amer 86, Est GFR (MDRD) Non-Af 71, BUN/Creatinine Ratio 22.4 H, Glucose 105, Calcium 8.3 L, Magnesium 2.2 08/19/19 05:57: WBC 6.3, RBC 4.38 L, Hgb 13.9, Hct 42.2, MCV 96.3 H, MCH 31.7, MCHC 32.9, RDW Std Deviation 55.5 H, RDW Coeff of Fe 15.6 H, Plt Count 155, MPV 11.4, Immature Gran % (Auto) 0.200, Neut % (Auto) 45.9 L, Lymph % (Auto) 38.2, [place] % (Auto) 9.9, Eos % (Auto) 4.8, Baso % (Auto) 1.0, Absolute Neuts (auto) 2.9, Absolute Lymphs (auto) 2.39, Nucleated RBC % 0 Current Medications Acetaminophen (Tylenol) 650 mg PO Q6H PRN PRN PRN Reason: Pain Score 1-3/Temp > 100.7 F [facility] Last Admin: 08/19/19 09:36 Dose: 300 mg Documented by: Aspirin (Aspirin, Baby) [facility] Last Admin: 08/19/19 09:36 Dose: 81 mg Documented by: Atorvastatin Calcium (Lipitor) 40 mg PO QHS [facility] Last Admin: 08/18/19 22:47 Dose: 40 mg Documented by: Dextrose (D50w Syringe) 0 gm IV X1 PRN; Protocol PRN Reason: Hypoglycemia Diazepam (Valium) 4 mg PO 4X/DAY PRN PRN PRN Reason: VERTIGO Enoxaparin Sodium (Lovenox) 40 mg SC DAILY@1000 [facility] Last Admin: 08/19/19 09:36 Dose: 40 mg Documented by: Glucagon () 1 mg IM .X1 PRN PRN Reason: Hypoglycemia Labetalol HCl (Trandate) 10 mg IV Q10M PRN PRN PRN Reason: SBP > 220 OR DBP > 120 Meclizine HCl (Antivert) 12.5 mg PO TID [facility] Last Admin: 08/19/19 06:40 Dose: 12.5 mg Documented by: Ondansetron HCl (Zofran) 4 mg IV Q8H PRN PRN PRN Reason: NAUSEA/VOMITING Sodium Chloride () 10 - 40 ml IV UD PRN PRN Reason: SALINE FLUSH Last Admin: 08/18/19 11:06 Dose: 10 ml Documented by: Discharge Diet: Low fat/ Low Cholesterol Discharge Activity: Return to Normal Activity Weight Bearing Status: Weight bearing as tolerated Call your doctor if you observe: Dizziness, Fainting spells Home Medications: Medications to take at Discharge Allopurinol [Zyloprim] 300 mg PO DAILY #30 tab 05/27/14 Aspirin [Aspirin, Baby] 81 mg PO DAILY #30 05/27/14 Amlodipine [Norvasc] 5 mg PO DAILY 05/25/16 hydrochlorothiazide 12.5 mg capsule 12.5 mg PO QDAY 11/17/17 Atorvastatin Calcium [Lipitor] 40 mg PO QHS #30 tab 08/19/19 Clopidogrel Bisulfate [Plavix] 75 mg PO DAILY #30 tab 08/19/19 Following Prescrptions Were Given to Patient: Atorvastatin Calcium [Lipitor] 40 mg PO QHS #30 tab Transmission Status: Received by [id number] Clopidogrel Bisulfate [Plavix] 75 mg PO DAILY #30 tab [facility] Status[id number] Primary Care Physician: Carlos Ram III, MD [Primary Care Provider] - Please follow up with your Primary Care Physician in: one week Please Follow Up With: Dr Box- vascular neurologist - [phone] When: please call office for an appointment RAFIA Please Follow Up With: Jayy Mcfarlane MD When: 2-4 weeks Please Follow Up With: Lencho Dubon MD When: 1-2 weeks Patient Instructions: Stroke and Heart Disease, Your Heart's Electrical System, What Is Atrial Flutter/Atrial Fibrillation?, What Is Ischemic Stroke?, Stroke: Taking Medications Disposition: Home Minutes spent on discharge:: 40 Patient Condition:: Stable Medical Necessity - Tobacco Use Smoking Status: Former smoker Tobacco Use: Non-smoker Meaningful Use Info Meaningful Use Diagnoses (Choose all that apply): Ischemic CVA - CVA Therapy Assessed for PT,OT and/or ST?: Yes - Ischemic Stroke Antithrombotic order at d/c?: Yes Dx of Atrial fib/flutter?: No Anticoagulant at discharge?: No Reason anticoagulant not ordered: Procedure not Indicated Statins at discharge?: Yes Primary Dx Acute Ischemic CVA?: Yes IV tPA ordered during stay?: No Reason IV t-PA not ordered: Procedure not Indicated Code Visit Inpatient E&M: 35790 Disch Hosp
--- NOTE | 2019-08-19 10:31 | CASEMGMT ---
Therapy is not recommending any further therapy at this time and pt had declined need for therapy at discharge previously. Gerardo PURCELL CM
--- NOTE | 2019-08-19 10:59 | PCM.PN.NEU ---
Patient Problems: Active and Suspected Problems (Last Reviewed 08/18/19 @ 06:12 by Santo Cedeño MD) Hypokalemia (Acute) Stroke (Acute) Dizziness (Acute) Subjective: No issues overnight. Care discussed with the nursing staff as well as the hospitalist team. CTA head/neck discussed in detail with the patient - Physical Exam Vitals/I&O's: Vital Signs Temp Pulse Resp BP Pulse Ox 97.6 F L 62 16 130/67 H 95 08/19/19 09:40 08/19/19 09:40 08/19/19 09:40 08/19/19 09:40 08/19/19 09:40 Oxygen Flow Rate (L/min) 3 Oxygen Delivery Method Room Air Weight: 75.3 kg Body Mass Index (BMI) 27.6 Finger Stick Blood Glucose 140 Intake and Output for Last 24 Hours 08/17/19 08/18/19 08/19/19 23:59 23:59 23:59 Intake Total 2060.0 / 2060.0 440 / 440 Output Total 1475 / 1475 675 / 675 Balance 585.0 / 585.0 -235 / -235 General: Alert HEENT: Normocephalic Neck: Supple Lungs: Normal air movement Cardiovascular: Normal S1, Normal S2 Abdomen: Bowel Sounds Present Extremities: No cyanosis Neurological: - - Conscious, alert, AOA x3, CN II to XII grossly intact, power 5/5 both upper and lower extremities, plantars B/L flexor, no pronator drift, no sensory loss, no cerebellar signs, gait deferred, reflexes + B/L B/S/T/K/A, No NR, fundus not visualized, NIHSS 0 at present, mRS 0 at baseline Psych/Mental Status: Normal Affect Laboratory Results 08/18/19 00:55: Hemoglobin A1c 6.1 08/18/19 11:45: Potassium 4.7 08/18/19 11:45: Triglycerides 62, Cholesterol 93, LDL Cholesterol 36, VLDL Cholesterol 12, HDL Cholesterol 45 08/19/19 05:57: Sodium 140, Potassium 4.2, Chloride 110 H, Carbon Dioxide 25.0, Anion Gap 5, BUN 24 H, Creatinine 1.07, Estim Creat Clear Calc 48.70, Est GFR (MDRD) Af Amer 86, Est GFR (MDRD) Non-Af 71, BUN/Creatinine Ratio 22.4 H, Glucose 105, Calcium 8.3 L, Magnesium 2.2 08/19/19 05:57: WBC 6.3, RBC 4.38 L, Hgb 13.9, Hct 42.2, MCV 96.3 H, MCH 31.7, MCHC 32.9, RDW Std Deviation 55.5 H, RDW Coeff of Fe 15.6 H, Plt Count 155, MPV 11.4, Immature Gran % (Auto) 0.200, Neut % (Auto) 45.9 L, Lymph % (Auto) 38.2, [place] % (Auto) 9.9, Eos % (Auto) 4.8, Baso % (Auto) 1.0, Absolute Neuts (auto) 2.9, Absolute Lymphs (auto) 2.39, Nucleated RBC % 0 Current Medications Acetaminophen (Tylenol) 650 mg PO Q6H PRN PRN PRN Reason: Pain Score 1-3/Temp > 100.7 F [facility] Admin: 08/19/19 09:36 Dose: 300 mg Documented by: Aspirin (Aspirin, Baby) [facility] Last Admin: 08/19/19 09:36 Dose: 81 mg Documented by: Atorvastatin Calcium (Lipitor) 40 mg PO QHS [facility] Last Admin: 08/18/19 22:47 Dose: 40 mg Documented by: Dextrose (D50w Syringe) 0 gm IV X1 PRN; Protocol PRN Reason: Hypoglycemia Diazepam (Valium) 4 mg PO 4X/DAY PRN PRN PRN Reason: VERTIGO Enoxaparin Sodium (Lovenox) 40 mg SC DAILY@1000 [facility] Last Admin: 08/19/19 09:36 Dose: 40 mg Documented by: Glucagon () 1 mg IM .X1 PRN PRN Reason: Hypoglycemia Labetalol HCl (Trandate) 10 mg IV Q10M PRN PRN PRN Reason: SBP > 220 OR DBP > 120 Meclizine HCl (Antivert) 12.5 mg PO TID [facility] Last Admin: 08/19/19 06:40 Dose: 12.5 mg Documented by: Ondansetron HCl (Zofran) 4 mg IV Q8H PRN PRN PRN Reason: NAUSEA/VOMITING Sodium Chloride () 10 - 40 ml IV UD PRN PRN Reason: SALINE FLUSH Last Admin: 08/18/19 11:06 Dose: 10 ml Documented by: STROKE Vital Signs/Narrative: Vital Signs Temp Pulse Resp BP Pulse Ox 08/19/19 09:40 97.6 F L 62 16 130/67 H 95 08/19/19 08:00 95 08/19/19 07:01 57 L Diagnostic/Tx/Re-eval - Rhythm Strip Rhythm Strip: Sinus bradycardia Rate: 58 Ectopy: None Medical Necessity - Tobacco Use Smoking Status: Former smoker Tobacco Use: Non-smoker Assessment/Plan All Active Problems (Last Reviewed 08/18/19 @ 06:12 by Santo Cedeño MD) Hypokalemia (Acute) Stroke (Acute) Dizziness (Acute) Encounter for loop recorder at end of battery life (Acute) The patient is a 79 year old M with PMH HTN, HLD, 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 Per patient he started having acute onset of dizziness yesterday 08/17/2019 at around 10:30 PM, when he felt the whole room was spinning, also had nausea, but denies any headache, focal motor weakness, visual disturbances or diplopia, speech disturbances or sensory loss. Per ED documentation NIHSS on admission was 0 and patient was not a TPA candidate. Per patient lives with , does not use cane or walker to ambulate, denies any frequent falls, does drive and does not need any assistance for ADLs. Patient he is on aspirin at baseline. Per patient he had recurrent episodes of dizziness in the past and after one such episode in February 2015 patient had a loop recorder implanted by Dr. Mcfarlane to see if any arrhythmias causing the dizziness. Per Dr. Mcfarlane's further note documentations in the following years there was no A. fib noted in the loop recorder, loop recorder was recently removed in December 2018. Per patient he never had any A. fib, and per Dr. Mcfarlane no documentation there is no history of A. fib. MRI brain done on admission reported to show small right anterior external capsule and right lateral globus pallidus infarct, small left cerebellar hemisphere infarct. 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 once daily and Plavix 75 mg p.o. once daily. Dual antiplatelet for 3 months then switch to single antiplatelet with aspirin. Bleeding risk discussed in detail with the patient -Lipitor 40 mg PO q hs -MRI brain images reviewed, MRA head/neck reviewed -CTA head/neck-reported high-grade stenosis in the right distal M1 segment proximal to the right M1 bifurcation, more than 50% stenosis in the distal third of the left M1 segment, occluded intradural segment of the left vertebral artery, occluded intradural segment of the right vertebral artery, occluded proximal basilar artery, contrast opacification of the distal two thirds of the basilar artery is retrograde collateral flow from the posterior common including arteries, hypoplastic distal basilar apex, patent bilateral cervical internal carotid arteries. -YqY4a-4.1, LDL-36 -TTE-EF 55%, left LA moderately enlarged, no PFO -30-day event recorder on discharge -Stroke risk factors discussed and stroke education provided -Avoid hypotension -exterminator goal BP < 130/80 mmHg, goal LDL < 70 and goal Hba1c < 7% -Follow up with cardiology -PT/OT/ST -GI/DVT prophylaxis -Fall precautions -Further medical management per hospitalist team -Please call with questions if any -Follow-up with neurology in 4 weeks -Thank you for allowing us to participate in patient's care and management This note has been generated using [employer] dictation software. It may contain incorrect words, spellings and punctuation that were not noted in the review of the note prior to signing Code Visit Inpatient E&M: 82300 Init Hosp L3
--- NOTE | 2019-08-19 11:48 | PHA.DC.MC ---
Pharmacy Service has performed discharge medication reconciliation and counseling for this patient. The patient's discharge medication list was reviewed for discrepancies and discrepancies were resolved. The patient was counseled on the following discharge medications and changes in medications for homegoing were reviewed. 1. PLAVIX 2. LIPITOR The Reason for Use, instructions for use, and potential side effects were reviewed for all new medications. The patient's questions regarding all of their medications were answered. The patient was able to verbally demonstrate an understanding of their discharge medications.
== END 2019-08-19 11:58 | disposition home or self-care (01) | DRG 66 ==
LOC: ED 01:58 → PCU 05:11
PROVIDERS: Admitting Provider Hospitalist; Emergency Provider Emergency Medicine; Family Provider Family Medicine; PCP Family Medicine; Visit Provider Student in an Organized Health Care Education/Training Program
DX: I63.512 Cerebral infarction due to unspecified occlusion or stenosis of left middle cerebral artery (principal); I25.10 Atherosclerotic heart disease of native coronary artery without angina pectoris; E87.6 Hypokalemia; I65.03 Occlusion and stenosis of bilateral vertebral arteries; E78.5 Hyperlipidemia, unspecified; I48.0 Paroxysmal atrial fibrillation; R42 Dizziness and giddiness; I10 Essential (primary) hypertension; M10.9 Gout, unspecified; I65.1 Occlusion and stenosis of basilar artery; Z95.1 Presence of aortocoronary bypass graft; Z87.891 Personal history of nicotine dependence; Z79.82 Long term (current) use of aspirin
CPT/HCPCS: 36415; 70450; 70496; 70498; 70544; 70549; 70551; 71045; 80048; 80053; 80061; 81001; 83036; 83690; 83735; 84132; 84484; 85025; 92523; 92610; 93005; 93306; 94762; 97162; 97530; 99285; A9575; J7040; Q9957; Q9967; A4216; C8929; J2405

== ENCOUNTER 2019-09-14 09:41 | Emergency (ER) | payer MEDICARE, OTHER, SELFPAY ==
[2019-08-18 23:25] VITALS: BMI 27.6
[2019-09-14] VITALS (7 sets, daily range): BP systolic 162–184; BP diastolic 71–93; PULSE 58–66; RESP 16–18; TEMP 36.4; O2SAT 94–96; BMI 27.4
--- NOTE | 2019-09-14 09:54 | EKG12_ITS ---
Test Reason : DIZZINESS Blood Pressure : / mmHG Vent. Rate : 064 BPM Atrial Rate : 064 BPM P-R Int : 162 ms QRS Dur : 094 ms QT Int : 420 ms P-R-T Axes : 039 -16 085 degrees QTc Int : 433 ms Normal sinus rhythm Possible Left atrial enlargement ST & T wave abnormality, consider anterior ischemia Abnormal ECG Confirmed by ALVINA MINER, HARI ([id number]), features editor DIMAS CHOUDHURY ([id number]) on 09/15/2019 1:04:49 PM Referred By: NIGEL/LIZET Confirmed By:HARI TINSLEY MD
--- NOTE | 2019-09-14 09:54 | CT_ITS ---
STUDY: CTA HEAD AND NECK WITH CONTRAST REASON FOR EXAM: Male, 79 years old. Vertigo. RADIATION DOSAGE (If Supplied By Facility): CTDIvol = ( 32.84 ) mGy, DLP = ( 2422.82 ) mGycm TECHNIQUE: CT angiography was performed with a multi-detector CT scanner. Data acquisition was obtained from the skull base through the vertex following intravenous administration of IV Isovue 370 100. MIP images were reconstructed from the axial data set. Post-processing of the angiographic images was performed, with multiplanar reformation and 3D reconstruction. Individualized dose optimization techniques were used for this CT. COMPARISON: No relevant priors. FINDINGS: Normal bilateral petrous carotid arteries. There is calcified plaque formation of the right cavernous carotid artery, without a cross-sectional luminal stenosis. There is calcified plaque formation of the left cavernous carotid artery, without a cross-sectional luminal stenosis. Normal right A1 segments of the anterior cerebral artery. Normal left A1 segments of the anterior cerebral artery. Normal intact anterior communicating artery (ACOM). Normal bilateral A2 segments of the anterior cerebral arteries. Normal right M1 and M2 segments of the middle cerebral arteries, with a normal M1 bifurcation. Normal left M1 and M2 segments of the middle cerebral arteries, with a normal M1 bifurcation. Normal right posterior communicating artery (PCOM). Normal left posterior communicating artery (PCOM). Normal bilateral vertebral arteries. Normal basilar artery with a normal basilar bifurcation. The visualized bilateral superior cerebellar (SCA) arteries are normal. Normal bilateral P1, P2 and visualized P3 segments of the posterior cerebral arteries. There is no demonstrated aneurysm of the [place]. There is no demonstrated abnormality of the visualized brain. AORTIC ARCH: There is atherosclerotic calcific plaque formation of the aortic arch and great vessels arising from the aortic arch, without a hemodynamically significant stenosis. Atherosclerotic plaque formation at the origin of the left subclavian artery as well as the left common carotid and brachiocephalic arteries. RIGHT CAROTID ARTERIES: Normal right common carotid artery (CCA). Normal right common carotid bulb. There is mild atherosclerotic plaque formation of the origin of the right internal carotid artery with less than 50% cross sectional diameter stenosis. Normal visualized cervical portion of the right internal carotid artery. Normal origin of the right external carotid artery (ECA). LEFT CAROTID ARTERIES: Normal left common carotid artery (CCA). Normal left common carotid bulb. There is mild atherosclerotic plaque formation of the origin of the left internal carotid artery with less than 50% cross sectional diameter stenosis. Normal visualized cervical portion of the left internal carotid artery. Normal origin of the left external carotid artery (ECA). VERTEBRAL ARTERIES: High-grade stenosis in the proximal basilar artery as well as in the intradural segments of both vertebral arteries. CT/CTA Head AND Neck W/ Contrast IMPRESSION: Either a stenosis in the proximal basilar artery as well as the intradural segments of both vertebral arteries. Nonsignificant stenosis at the origins of both right and left internal carotid arteries. Electronically Signed: Wayne Luong, at 12:25 EST , Service support ,
--- NOTE | 2019-09-14 09:55 | RAD_ITS ---
STUDY: X-RAY CHEST REASON FOR EXAM: Male, 79 years old. Lightheadedness. Recent stroke. Cough. TECHNIQUE: Single AP portable view of the chest. COMPARISON: Comparison is made with prior examination dated August 18, 2019. FINDINGS: Stable elevation of the left hemidiaphragm. Mild increased reticular markings at the left lung base with blunting of the left costophrenic angle. This has improved as compared to prior study. Sternal cerclage wires and vascular clips are present from a prior sternotomy and coronary artery bypass graft procedure (CABG). Normal mediastinum and gerardo. Normal visualized pulmonary arteries. There is atherosclerotic calcification of the aortic arch with tortuosity. Normal visualized thoracic spine. Normal visualized ribs, clavicles, and shoulders. There is no demonstrated abnormality of the visualized soft tissue structures of the upper abdomen. RAD/Chest 1 View IMPRESSION: Stable elevation of the left hemidiaphragm with mild degree of increased markings at the left lung base with blunting of left costophrenic angle. This has improved as compared to prior study Electronically Signed: Wayne Luong, at 10:20 EST , Service support ,
[2019-09-14 10:15] LABS: Absolute Lymphocyte Count 2.01 X10^3/uL (0.83-4.51); Absolute Neutrophil Count 4.4 X10^3/uL (2.0-7.7); Basophil# 0.05 X10^3/uL; Basophil% 0.7 % (0-1); Eosinophil# 0.24 X10^3/uL; Eosinophils% 3.3 % (0-5); Hematocrit 46.5 % (40-54); Hemoglobin 15.9 g/dL (13.0-16.5); Lymphocyte # 2.01 X10^3/ul (4.0); Lymphocyte % 27.6 % (19-41); Mean Corp Hgb Conc 34.2 g/dL (32-36); Mean Corpuscular Volume 93.6 fL (80-94); Mean Platelet Vol. 10.3 fl (6.2-12.0); Monocyte# 0.62 X10^3/uL; Monocyte% 8.5 % (0-10); NRBC Flagged by Analyzer 0 % (0-5); Neutrophil # 4.35 X10^3/uL (2.7-7.7); Neutrophil % 59.6 % (47-70); Platelet Count 162 K/mm3 (150-450); RBC Distribution Width CV 14.9 % (11.6-14.6); RBC Distribution Width SD 51.3 fl (35.1-43.9); Red Blood Count 4.97 M/mm3 (4.6-6.2); White Blood Count 7.3 K/mm3 (4.4-11.0)
[2019-09-14 10:26] LABS: International Normalized Ratio 1.1; Prothrombin Time (Protime)PT. 13.6 SECONDS (11.7-14.9)
[2019-09-14 10:27] LABS: Partial Thromboplast Time 28.8 Seconds (24.1-36.2)
[2019-09-14 10:37] LABS: Anion Gap 6 (5-15); BUN 18 mg/dL (7-18); BUN/Creat Ratio 17.5 RATIO (10-20); Calcium,Total 8.9 mg/dL (8.5-10.1); Chloride 103 mmol/L (98-107); Creatinine, Serum 1.03 mg/dL (0.70-1.30); EST Glomerular Filtration Rate 74 mL/min (>60); Est Glom Filt Rate - Afr Amer 90 mL/min (>60); Estimated Creatinine Clearance 50.59 ml/min; Glucose 154 mg/dL (74-106); Potassium 3.5 mmol/L (3.5-5.1); Sodium Level 139 mmol/L (136-145)
--- NOTE | 2019-09-14 10:37 | ED.DCSUM_ITS ---
History of Present Illness Chief Complaint: Dizziness Informant: Patient Onset: Days Context: Gradual Onset Timing: Continuous Current Severity: Moderate Maximum Severity: Moderate Narrative: The patient is a 79-year-old male with medical history significant for recent stroke that presents to the emergency department with ataxia. The patient states his been going on for the past 5 days. He was hospitalized just about a month ago. He had acute vertigo at that time with persistent nausea and vomiting. His MRI demonstrated small embolic strokes in multiple areas. The patient had a loop recorder placed. He was started on Plavix. He was also found to have significant vascular disease in the vertebral artery and in the carotid artery. He is scheduled to follow-up with the stroke neurologist in [place], but not until 10 days from now. He states he is to the point where he is having a very difficult time walking. He denies any trouble with speech or swallowing. He denies any other symptoms. Prior similar symptoms: Yes Recent Illness/Hospitalization: Yes Past Medical History - Allergies and Home Meds Allergies/Adverse Reactions: Allergies losartan Adverse Reaction (Intermediate, Verified 09/14/19 09:42) Nasal congestion & cough lisinopril Adverse Reaction (Verified 09/14/19 09:42) Other Sulfa (Sulfonamide Antibiotics) Adverse Reaction (Verified 09/14/19 09:42) Unknown Primary Care Physician: Carlos Ram III, MD [Primary Care Provider] - Prior records reviewed: Yes Past Medical History: - - Hypertension, hyperlipidemia, coronary vascular disease Surgical History: coronary bypass surgery, herniorrhaphy, - Smoking Status: Former smoker - Family History Maternal Family History: Family History (Last Reviewed 08/18/19 @ 06:12 by Santo Cedeño MD) Father Hypertension Brother CVA (cerebral vascular accident) Diabetes Family History: Reports: Hypertension Paternal Family History: Family History (Last Reviewed 08/18/19 @ 06:12 by Santo Cedeño MD) Father Hypertension Brother CVA (cerebral vascular accident) Diabetes Family History: Reports: Hypertension Sibling Family History: Family History (Last Reviewed 08/18/19 @ 06:12 by Santo Cedeño MD) Father Hypertension Brother CVA (cerebral vascular accident) Diabetes Family History: Reports: Hypertension Review of Systems General: Denies: Chills, Fever, Sweats Eyes: Denies: Visual changes - bilaterally, Diplopia ENT: Denies: Rhinorrhea, Sore throat Cardiovascular: Denies: Chest pain, Palpitations Respiratory: Denies: Dyspnea, Cough, Dyspnea on exertion Gastrointestinal: Denies: Abdominal pain, Nausea, Vomiting, Diarrhea, Melena, Hematochezia Genitourinary: Denies: Dysuria, Hematuria, Frequency Musculoskeletal: Denies: Back pain, Extremity Pain Skin: Denies: Rash, Wounds Neurological: Denies: Headache, Weakness, Numbness Psych: Denies: Depression Endocrine: Denies: Polyuria Physical Exam Vital Signs/Narrative: Vital Signs Temp Pulse Resp BP Pulse Ox 09/14/19 10:16 60 17 162/77 H 94 09/14/19 09:42 97.5 F L 65 16 164/71 H 96 Inital Vital Signs reviewed: Yes General: Well nourished, Well developed, No Acute Distress Head: Normocephalic, Atraumatic Eyes: Perrl, EOMI ENT: Moist mucous membranes, No rhinorrhea Neck: Supple, Nontender Cardiovascular: Regular rate, Regular rhythm, No murmurs Respiratory: No distress, CTA bilaterally, Chest nontender Abdomen: Soft, Nontender, Nondistended, Normal bowel sounds Back: Nontender, Normal Inspection Extremities: Nontender, No edema Skin: Normal color, No rash Neurological: Alert, Oriented x3, Cranial nerves II-XII grossly intact, Normal Strength, Normal Sensation. Negative for: Normal Gait Psychological: Normal affect, Normal Mood Diagnostic/Tx/Re-eval Chest X-Ray - ED: 1 View, Normal, Heart, Lungs, Mediastinum Clinical Impression(s) from Imaging Studies Head/Neck CTA 09/14/19 09:54 IMPRESSION: Either a stenosis in the proximal basilar artery as well as the intradural segments of both vertebral arteries. Nonsignificant stenosis at the origins of both right and left internal carotid arteries. Electronically Signed: Wayne Luong, at 12:25 EST , Service support , Chest X-Ray 09/14/19 09:55 IMPRESSION: Stable elevation of the left hemidiaphragm with mild degree of increased markings at the left lung base with blunting of left costophrenic angle. This has improved as compared to prior study Electronically Signed: Wayne Lunog, at 10:20 EST , Service support , Abnormal Lab Results 09/14/19 09/14/19 09/14/19 10:05 10:05 10:05 WBC 7.3 RBC 4.97 Hgb 15.9 Hct 46.5 MCV 93.6 MCH 32.0 MCHC 34.2 RDW Std Deviation 51.3 H RDW Coeff of Fe 14.9 H Plt Count 162 MPV 10.3 Immature Gran % (Auto) 0.300 Neut % (Auto) 59.6 Lymph % (Auto) 27.6 [place] % (Auto) 8.5 Eos % (Auto) 3.3 Baso % (Auto) 0.7 Absolute Neuts (auto) 4.4 Absolute Lymphs (auto) 2.01 Nucleated RBC % 0 PT 13.6 INR 1.1 APTT 28.8 Sodium 139 Potassium 3.5 Chloride 103 Carbon Dioxide 30.0 Anion Gap 6 BUN 18 Creatinine 1.03 Estim Creat Clear Calc 50.59 Est GFR (MDRD) Af Amer 90 Est GFR (MDRD) Non-Af 74 BUN/Creatinine Ratio 17.5 Glucose 154 H Calcium 8.9 Troponin I < 0.015 - Rhythm Strip Rhythm Strip: Sinus Rhythm Rate: 80 Ectopy: None - EKG Initial EKG Interpretation: Sinus Rhythm, No Acute Injury Pattern, Non-Specific ST Changes Prior: Unchanged - Medical Decision Making The patient presents with new ataxia that is started within the past 4 days. He was ambulated and has a broad-based gait with foot slapping and does seem unsteady on his feet. With his history, metabolic work-up was pursued. EKG demonstrates sinus rhythm with some nonspecific anterior T wave changes unchanged from prior. CTA does demonstrate persistent occlusive process within the vertebral arteries and basilar artery. The patient is scheduled to see neurology at [facility], but given his new ataxia I do feel that he is going to require admission. The patient was discussed with [facility] and will be transferred for neurology consultation and further work-up of his new ataxia. Impression 1. Ataxia ED Disposition - Plan for ED Patient: Referrals: Carlos Ram III, MD [Primary Care Provider] -
--- NOTE | 2019-09-14 15:42 | NURSING ---
CALLED [facility], TALKED TO TRANSFER LINE. NO BED YET, BUT HE WILL GET THE FIRST BED.
--- NOTE | 2019-09-14 19:55 | ED.RN ---
PT REFUSED HCTZ DUE TO BP 136/66, PULSE 61.
== END 2019-09-14 22:27 | disposition short-term general hospital (02) ==
LOC: ED 10:39
PROVIDERS: Emergency Provider Emergency Medicine; Family Provider Family Medicine; PCP Family Medicine
DX: R27.0 Ataxia, unspecified (principal); I65.23 Occlusion and stenosis of bilateral carotid arteries; I65.03 Occlusion and stenosis of bilateral vertebral arteries; I65.1 Occlusion and stenosis of basilar artery; I10 Essential (primary) hypertension; E78.5 Hyperlipidemia, unspecified; I25.10 Atherosclerotic heart disease of native coronary artery without angina pectoris; Z86.73 Personal history of transient ischemic attack (TIA), and cerebral infarction without residual deficits; Z95.1 Presence of aortocoronary bypass graft; Z79.02 Long term (current) use of antithrombotics/antiplatelets; Z79.82 Long term (current) use of aspirin; Z79.899 Other long term (current) drug therapy; Z87.891 Personal history of nicotine dependence
CPT/HCPCS: 70496; 70498; 71045; 80048; 84484; 85025; 85610; 85730; 93005; 99285; Q9967; A4216

== ENCOUNTER → 2021-03-16 09:58 | Outpatient (CLI) | payer MEDICARE, OTHER, SELFPAY ==
[2021-03-14 11:24] VITALS: BMI 26.9
== END ==
PROVIDERS: PCP Family Medicine; Referring Provider Nurse Practitioner Family; Visit Provider Nurse Practitioner Family
DX: Z01.84 Encounter for antibody response examination (principal)
CPT/HCPCS: 36415; 86769

== ENCOUNTER → 2021-04-26 06:58 | Outpatient (CLI) | payer MEDICARE, OTHER, SELFPAY ==
[2021-03-14 11:24] VITALS: BMI 26.9
--- NOTE | 2021-04-26 18:34 | STRESSREP ---
Stress Test Report Exercise myocardial perfusion stress test. 81-year-old man with a history of coronary artery disease status post previous coronary artery bypass surgery. Stress protocol: Resting EKG demonstrates normal sinus rhythm with a rate of 57 bpm and T wave inversions noted in leads I, aVL and V2 through V6. The resting blood pressure is 148/70 mmHg. The patient exercised according to the regular Varinder protocol for a total duration of 5 minutes and 15 seconds. The maximum heart rate attained was 114 bpm which was 82% of maximum. Heart rate the maximum workload was 7 metabolic equivalents. At rest there were no ST or T wave changes noted to suggest ischemia. T wave inversions were noted which were nonspecific. No clinical angina was noted the test was terminated due to fatigue. At peak exercise there were no ST changes noted to suggest ischemia. The peak blood pressure was 184/70 mmHg. Myocardial perfusion protocol. 11.5 mCi of technetium 99m sestamibi was injected at rest. The patient exercised according to regular Varinder protocol for total duration of 5 minutes and 15 seconds. At peak exercise 33.1 mCi of technetium 99m sestamibi was injected stress images were obtained stress and rest images were reconstructed and compared in the short axis vertical long and horizontal long axis. Gated images were also obtained. Perfusion SPECT analysis: Review of the stress images demonstrate normal perfusion noted in the septum inferior wall and lateral wall. There is mildly reduced perfusion noted in the mid anterior wall on the stress images. The resting images demonstrate a similar pattern of mild reduction noted in the mid anterior wall. The rest of the villa appear to be well perfused. The above pattern is not suggestive of ischemia and a previous small infarct cannot be completely excluded. Gated SPECT analysis: The gated ejection fraction is 56%. Conclusion: Exercise myocardial perfusion stress test with no obvious ischemia noted at a moderate workload. Preserved ejection fraction Mild functional impairment.
== END ==
PROVIDERS: Referring Provider Internal Medicine Cardiovascular Disease; Visit Provider Internal Medicine Cardiovascular Disease
DX: Z95.1 Presence of aortocoronary bypass graft (principal)
CPT/HCPCS: 78452; 93017; A9500; A4216

== ENCOUNTER 2021-10-25 09:53 | Outpatient (CLI) | payer MEDICARE, OTHER, SELFPAY ==
--- NOTE | 2021-10-25 09:55 | ECHOD_ITS ---
Reason For Study: MURMUR Procedure This was a 2D Doppler, Color Flow transthoracic echocardiogram. Exam performed in department. Left Ventricle Normal LV size. Left ventricular systolic function is normal. The estimated ejection fraction is 65 %. No regional wall motion abnormalities noted. Right Ventricle Normal RV size. Normal systolic function. Atria The left atrium is mildly enlarged. Normal right atrium. Mitral Valve Normal mitral valve. Tricuspid Valve Normal tricuspid valve. Mild (1+) tricuspid valve insufficiency. Pulmonary artery systolic pressure is 30 mmHg. Aortic Valve Trisinus/trileaflet aortic valve. Mild focal aortic valve calcification. Mild-Moderate (1-2+) aortic valve insufficiency. Pulmonic Valve Normal pulmonic valve. Great Vessels Calcified aortic root. Mildly dilated aortic root. The pulmonary artery is normal size. Normal inferior vena cava. Pericardium/Pleural No pericardial effusion. MMode/2D Measurements & Calculations LVIDd: 5.7 cm IVSd: 1.1 cm LVOT diam: 2.4 cm LVIDs: 3.6 cm LVPWd: 1.1 cm LVOT area: 4.4 cm2 RVDd: 3.4 cm FS: 36.4 % Ao root diam: 4.4 cm LAV(MOD-bp): 100.9 ml LA A4 area: 24.9 cm2 LAV(MOD-bp) Indexed: 55.5 ml/m2 LAV(MOD-sp2): 93.6 ml LAV(MOD-sp4): 93.2 ml LA dimension(2D): 5.5 cm RA A4 area: 16.7 cm2 Time Measurements MV dec time: 0.28 sec Doppler Measurements & Calculations MV E max jayme: 63.0 cm/sec Lat Peak E' Jayme: 4.8 cm/sec Med Peak E' Jayme: 4.8 cm/sec E/E' lat: 13.2 E/E' med: 13.2 Ao V2 max: 148.9 cm/sec AI max jayme: 321.6 cm/sec LV V1 max: 132.2 cm/sec Ao max P.9 mmHg AI max P.4 mmHg LV V1 max P.0 mmHg Ao V2 mean: 90.7 cm/sec AI dec slope: 173.7 cm/sec2 Ao mean P.9 mmHg AI P1/2t: 542.2 msec Ao V2 VTI: 30.7 cm NATALIA(V,D): 3.9 cm2 PA V2 max: 87.5 cm/sec TR max jayme: 256.9 cm/sec TR max P.4 mmHg ECHO/Echo Complete Interpretation Summary Normal LV size. Left ventricular systolic function is normal. The estimated ejection fraction is 65 %. Pulmonary artery systolic pressure is 30 mmHg. Mild-Moderate (1-2+) aortic valve insufficiency. Ordering Physician: Anuja Dickey Referring Physician: Yasmany Smith Performed By: Esther Castellon, BUSHRA, RVT
== END 2021-10-25 23:59 | disposition short-term general hospital (02) ==
LOC: CVS 09:55
PROVIDERS: PCP Family Medicine; Referring Provider Physician Assistant Medical; Visit Provider Physician Assistant Medical
DX: I25.10 Atherosclerotic heart disease of native coronary artery without angina pectoris (principal)
CPT/HCPCS: 93306

== ENCOUNTER → 2022-07-09 | Outpatient (CLI) | payer MEDICARE, OTHER, SELFPAY ==
[2022-07-09 10:13] LABS: Protein, Urine (Random) 48.6 mg/dL (<11.9); Protein:Creat Ratio 1138 mg/g CRE (0-200)
[2022-07-09 10:17] LABS: Anion Gap 5 (5-15); BUN 21 mg/dL (7-18); BUN/Creat Ratio 20.8 RATIO (10-20); Calcium,Total 9.1 mg/dL (8.5-10.1); Chloride 107 mmol/L (98-107); Creatinine, Serum 1.01 mg/dL (0.70-1.30); EST Glomerular Filtration Rate 75 mL/min (>60); Est Glom Filt Rate - Afr Amer 91 mL/min (>60); Glucose 103 mg/dL (74-106); Sodium Level 141 mmol/L (136-145)
== END | disposition home or self-care (01) ==
PROVIDERS: PCP Family Medicine; Referring Provider Internal Medicine Nephrology; Visit Provider Internal Medicine Nephrology
DX: R80.9 Proteinuria, unspecified (principal)
CPT/HCPCS: 36415; 80048; 82570; 84156

== ENCOUNTER → 2022-07-19 | Outpatient (CLI) | payer MEDICARE, OTHER, SELFPAY ==
--- NOTE | 2022-07-19 07:41 | CT_ITS ---
STUDY: CT CHEST WITH CONTRAST REASON FOR EXAM: Male, 82 years old. Aortic dilatation. RADIATION DOSAGE (If Supplied By Facility): CTDIvol = ( 17.77 ) mGy, DLP = ( 444.11 ) mGycm TECHNIQUE: Transaxial imaging was performed following intravenous administration of IV 100mL Isovue-300. Multiplanar coronal and sagittal images were reformatted. Individualized dose optimization techniques were used for this CT. COMPARISON: No relevant priors. FINDINGS: CHEST Small benign-appearing bilateral axillary lymph nodes. Small calcified granuloma in the posterior aspect of the right upper lobe. There is no demonstrated pleural abnormality. There are calcifications of the coronary arteries. Sternal cerclage wires and vascular clips are present from a prior sternotomy and coronary artery bypass graft procedure (CABG). Normal mediastinum. Normal hilar regions. Normal unenhanced pulmonary arteries. There is dilatation of the root of the ascending thoracic aorta measuring 42 mm. There are multi-level degenerative changes of the thoracic spine. There is no demonstrated abnormality of the visualized upper abdomen. CT/Chest WITH Contrast IMPRESSION: Dilatation of the root of the ascending thoracic aorta measuring 42 mm. Electronically Signed: Wayne Luong MD at 10:59 EDT ,
== END | disposition home or self-care (01) ==
LOC: CT 07:41
PROVIDERS: PCP Family Medicine; Referring Provider Internal Medicine Cardiovascular Disease; Visit Provider Internal Medicine Cardiovascular Disease
DX: I77.810 Thoracic aortic ectasia (principal)
CPT/HCPCS: 71260; Q9967

== ENCOUNTER → 2023-01-07 | Outpatient (CLI) | payer MEDICARE, OTHER, SELFPAY ==
[2023-01-07 10:43] LABS: Hemoglobin 14.9 g/dL (13.0-16.5); Mean Corp Hgb Conc 33.1 g/dL (32-36); Mean Corpuscular Hgb 31.9 pg (27.0-32.0); Mean Corpuscular Volume 96.4 fL (80-94); Mean Platelet Vol. 10.7 fl (6.2-12.0); Platelet Count 147 K/mm3 (150-450); RBC Distribution Width SD 52.9 fl (35.1-43.9); Red Blood Count 4.67 M/mm3 (4.6-6.2); White Blood Count 5.9 K/mm3 (4.4-11.0)
[2023-01-07 10:56] LABS: Protein, Urine (Random) 108.8 mg/dL (<11.9); Protein:Creat Ratio 954 mg/g CRE (0-200)
[2023-01-07 11:25] LABS: Albumin, Serum 3.6 g/dL (3.2-5.0); BUN 21 mg/dL (7-18); BUN/Creat Ratio 18.8 RATIO (10-20); Calcium,Total 8.9 mg/dL (8.5-10.1); Chloride 104 mmol/L (98-107); Creatinine, Serum 1.12 mg/dL (0.70-1.30); EST Glomerular Filtration Rate 67 mL/min (>60); Est Glom Filt Rate - Afr Amer 81 mL/min (>60); Glucose 106 mg/dL (74-106); PTHIN 66.4 pg/mL (18.4-80.1); Phosphorus 3.2 mg/dL (2.5-4.9); Potassium 3.4 mmol/L (3.5-5.1); Sodium Level 137 mmol/L (136-145)
[2023-01-07 11:30] LABS: Vitamin D,25 Hydroxy 47.5 ng/mL
== END | disposition home or self-care (01) ==
LOC: LAB 09:16
PROVIDERS: PCP Family Medicine; Referring Provider Nurse Practitioner Adult Health; Visit Provider Nurse Practitioner Adult Health
DX: I10 Essential (primary) hypertension (principal); R80.9 Proteinuria, unspecified; E78.5 Hyperlipidemia, unspecified
CPT/HCPCS: 36415; 80069; 82306; 82570; 83970; 84156; 85027

== ENCOUNTER → 2023-09-12 | Outpatient (CLI) | payer MEDICARE, OTHER, SELFPAY ==
--- NOTE | 2023-09-12 07:49 | ECHOD_ITS ---
Reason For Study: CAD/ASHD Procedure This was a 2D Doppler, Color Flow transthoracic echocardiogram. The study was technically difficult. Exam performed in department. Left Ventricle Normal LV size. Left ventricular systolic function is normal. The estimated ejection fraction is 60 %. Stage 1 diastolic dysfunction. No regional wall motion abnormalities noted. Right Ventricle Normal RV size. Normal systolic function. Atria The left atrium is moderately enlarged. Normal right atrium. Mitral Valve Normal mitral valve. Tricuspid Valve Normal tricuspid valve. Mild (1+) tricuspid valve insufficiency. Pulmonary artery systolic pressure is 26 mmHg. Aortic Valve Trisinus/trileaflet aortic valve. Mild (1+) eccentric aortic valve insufficiency. Pulmonic Valve Normal pulmonic valve. Great Vessels Mild to moderately dilated aortic root. The pulmonary artery is normal size. Normal inferior vena cava. Pericardium/Pleural No pericardial effusion. MMode/2D Measurements & Calculations LVIDd: 5.4 cm IVSd: 1.4 cm Ao root diam: 4.4 cm LVIDs: 3.6 cm LVPWd: 1.1 cm LA dimension: 5.6 cm RVDd: 3.3 cm FS: 33.9 % LAV(MOD-bp): 102.5 ml LA A4 area: 30.5 cm2 RA A4 area: 15.4 cm2 LAV(MOD-bp) Indexed: 56.2 ml/m2 LAV(MOD-sp2): 93.0 ml LAV(MOD-sp4): 112.6 ml Time Measurements MV dec time: 0.27 sec Doppler Measurements & Calculations MV E max jayme: 55.0 cm/sec Lat Peak E' Jayme: 6.9 cm/sec Med Peak E' Jayme: 5.3 cm/sec MV A max jayme: 75.9 cm/sec E/E' lat: 7.9 E/E' med: 10.3 MV E/A: 0.72 MV V2 max: 94.6 cm/sec MV P1/2t max jayme: 74.5 cm/sec Ao V2 max: 176.5 cm/sec MV max P.6 mmHg MV P1/2t: 100.4 msec Ao max P.5 mmHg MV V2 mean: 43.0 cm/sec MV dec slope: 217.6 cm/sec2 MV mean P.93 mmHg MVA(P1/2t): 2.2 cm2 MV V2 VTI: 32.5 cm AI max jayme: 308.0 cm/sec LV V1 max: 168.7 cm/sec PA V2 max: 91.5 cm/sec AI max P.9 mmHg LV V1 max P.4 mmHg AI dec slope: 157.6 cm/sec2 AI P1/2t: 572.5 msec TR max jayme: 238.9 cm/sec TR max P.8 mmHg ECHO/Echo Complete Interpretation Summary Normal LV size. Left ventricular systolic function is normal. The estimated ejection fraction is 60 %. Mild to moderately dilated aortic root. The left atrium is moderately enlarged. Stage 1 diastolic dysfunction. Mild (1+) eccentric aortic valve insufficiency. Ordering Physician: Anuja Dickey Referring Physician: Yasmany Smith Performed By: Hayden Dick RCS
--- NOTE | 2023-09-12 07:49 | CT_ITS ---
STUDY: CTA CHEST REASON FOR EXAM: Male, 83 years old. Dilated aortic root RADIATION DOSAGE (If Supplied By Facility): CTDIvol = ( 31.23 ) mGy, DLP = ( 2504.15 ) mGycm TECHNIQUE: The examination was performed with the intravenous administration of IV 100mL Isovue-370. Post-processing of the angiographic images was performed, with multiplanar reformation and 3D reconstruction. Individualized dose optimization techniques were used for this CT. COMPARISON: Comparison is made with prior study dated July 19, 2022. FINDINGS: Normal enhancement of the main pulmonary artery and right and left pulmonary arteries. Normal enhancement of the bilateral peripheral pulmonary arteries. There is no demonstrated pulmonary embolism. There is aneurysmal dilatation of the ascending aorta. The transverse diameter of the ascending aorta measures 44.8 mm''s. There is no demonstrated aortic dissection. There are calcifications of the coronary arteries. Left atrial enlargement. Prior CABG. Normal mediastinum. Normal hilar regions. Normal visualized trachea and bronchi. The lungs are well expanded. Small calcified granuloma in the posterior aspect of the right upper lobe. Normal pleura. Normal chest wall structures. There are degenerative changes of thoracic spine. 1.3 cm hypodense nodule in the superior pole of the right kidney. Correlate with ultrasound is recommended. CT/CTA Chest W/WO Contrast IMPRESSION: Dilatation of the root of the ascending aorta with a transverse dimension of 44.8 mm. Coronary artery calcification. 1.3 cm hypodense nodule in the posterior superior aspect of the right kidney. Correlation with ultrasound is recommended. Electronically Signed: Wayne Luong MD at 10:02 EST ,
--- NOTE | 2023-09-12 08:07 | CT_ITS ---
STUDY: CTA HEAD AND NECK WITH CONTRAST REASON FOR EXAM: Male, 83 years old. STROKE RADIATION DOSAGE (If Supplied By Facility): CTDIvol = ( 32.23 ) mGy, DLP = ( 2504.15 ) mGycm TECHNIQUE: CT angiography was performed with a multi-detector CT scanner. Data acquisition was obtained from the skull base through the vertex following intravenous administration of IV 100mL Isovue-370. MIP images were reconstructed from the axial data set. Post-processing of the angiographic images was performed, with multiplanar reformation and 3D reconstruction. Individualized dose optimization techniques were used for this CT. COMPARISON: Comparison is made with prior study dated September 14, 2019. FINDINGS: Normal bilateral petrous carotid arteries. There is calcified plaque formation of the right cavernous carotid artery, without a cross-sectional luminal stenosis. There is calcified plaque formation of the left cavernous carotid artery, without a cross-sectional luminal stenosis. Normal right A1 segments of the anterior cerebral artery. Normal left A1 segments of the anterior cerebral artery. Normal intact anterior communicating artery (ACOM). Normal bilateral A2 segments of the anterior cerebral arteries. Normal right M1 and M2 segments of the middle cerebral arteries, with a normal M1 bifurcation. Normal left M1 and M2 segments of the middle cerebral arteries, with a normal M1 bifurcation. Normal right posterior communicating artery (PCOM). Normal left posterior communicating artery (PCOM). Normal bilateral vertebral arteries. Normal basilar artery with a normal basilar bifurcation. The visualized bilateral superior cerebellar (SCA) arteries are normal. Normal bilateral P1, P2 and visualized P3 segments of the posterior cerebral arteries. There is no demonstrated aneurysm of the [place] of [place]. Mild degree of cerebral atrophy. Atherosclerotic calcific plaques of the cavernous portion of the internal carotid arteries as well as the vertebral arteries. AORTIC ARCH: There is atherosclerotic calcific plaque formation of the aortic arch and great vessels arising from the aortic arch, without a hemodynamically significant stenosis. There is a normal origin of the brachiocephalic, left common carotid, and left subclavian arteries. Atherosclerotic plaque formation at the origin of the right subclavian artery as well as the left subclavian artery and left common carotid artery. Prior CABG RIGHT CAROTID ARTERIES: Normal right common carotid artery (CCA). Normal right common carotid bulb. There is extensive atherosclerotic plaque formation of the origin of the right internal carotid artery with an estimated stenosis of greater than 70%. Calcific plaque causing approximately 50% narrowing of the distal portion of the right internal carotid artery. Normal origin of the right external carotid artery (ECA). LEFT CAROTID ARTERIES: Normal left common carotid artery (CCA). Normal left common carotid bulb. There is extensive atherosclerotic plaque formation of the origin of the left internal carotid artery with an estimated stenosis of greater than 70%. Mild degree of calcific plaque causing less than 50% narrowing of the distal portion of the left internal carotid artery. Normal origin of the left external carotid artery (ECA). VERTEBRAL ARTERIES: Dense calcific plaque seen in the distal portion of both vertebral arteries and proximal basilar artery with stenosis. CT/CTA Head AND Neck W/ Contrast IMPRESSION: Greater than 70% narrowing at the origins of both internal carotid arteries due to calcified atherosclerotic plaques. Electronically Signed: Wayne Luong MD at 9:49 EST ,
[2023-09-12 08:26] LABS: CREATININE FINGERSTICK < 1.0 mg/dL (0.70-1.30); EGFR FINGERSTICK > 60.0000 mL/min (>60)
== END | disposition home or self-care (01) ==
PROVIDERS: PCP Family Medicine; Referring Provider Physician Assistant Medical; Visit Provider Physician Assistant Medical
DX: I25.10 Atherosclerotic heart disease of native coronary artery without angina pectoris (principal); I35.1 Nonrheumatic aortic (valve) insufficiency
CPT/HCPCS: 70496; 70498; 71275; 93306; Q9967

== ENCOUNTER 2023-12-15 04:20 | Emergency (ER) | payer MEDICARE, OTHER, SELFPAY ==
[2023-12-15 04:21] VITALS: BP 143/79; PULSE 67; RESP 18; TEMP 36.7; O2SAT 97; BMI 28.5
--- NOTE | 2023-12-15 04:35 | ED.VIS.LOWEX ---
HPI History of Present Illness HPI Narrative: Patient presents with right ankle pain that has been getting progressively worse since yesterday. Patient states he has a history of gout. Patient states this feels similar to prior flareups of his gout. Patient denies any trauma or injury. Patient states pain began rather suddenly. Patient states it has been constant. Patient describes the pain as stabbing. Patient states it is worse with weightbearing. Patient states nothing makes it better. Patient denies any paresthesias or weakness. Patient denies any fevers or chills. Chief Complaint: Lower Extremity Injury Informant: patient Onset/Context/Timing Onset: Yesterday Context: Sudden Onset Timing: Continuous Quality of Pain: Stabbing Location: Right ankle Worsened by: Weightbearing Relieved by: Nothing Associated Symptoms Associated Symptoms: Negative for Parasthesia, Weakness or Loss of Funtion [facility] Medical History (Updated 12/15/23 @ 06:[address] Prasanna Ogden, DO) Atherosclerotic heart disease of [place] coronary artery without angina pectoris CVA (cerebral vascular accident) (08/18/19) Dilated aortic root Essential (primary) hypertension Gout Hyperlipidemia Nonrheumatic aortic (valve) insufficiency Occlusion of both vertebral arteries Postoperative atrial fibrillation (02/17/15) Stroke Vertigo Home Medications allopurinol 300 mg tablet 300 mg PO DAILY #30 tabs 05/27/14 [Rx Last Taken 12/11/18] aspirin 81 mg chewable tablet 81 mg PO DAILY ##30 05/27/14 [Rx Last Taken 04/14/15] clopidogrel 75 mg tablet 75 mg PO DAILY #30 tabs 08/19/19 [Rx Last Taken Unknown] rosuvastatin 40 mg tablet (Crestor) 40 mg PO DAILY 02/15/20 [History Last Taken Unknown] amlodipine 5 mg tablet 5 mg PO DAILY blood pressure #90 tabs 05/31/21 [Rx Last Taken Unknown] zinc gluconate 30 mg tablet 30 mg PO DAILY 10/08/21 [History Last Taken Unknown] calcium carbonate 600 mg-vitamin D3 12.5 mcg (500 unit) capsule (Calcium 600 with Vitamin D3) 1 cap PO DAILY 07/09/22 [History Last Taken Unknown] multivitamin (Daily Multi-Vitamin tablet) 1 tab PO DAILY 07/10/23 [History Last Taken Unknown] doxazosin 2 mg tablet (Cardura) 2 mg PO DAILY #90 tabs 09/15/23 [Rx Last Taken Unknown] hydrochlorothiazide 12.5 mg capsule 12.5 mg PO DAILY #90 caps 11/20/23 [Rx Last Taken Unknown] hydrocodone-acetaminophen 5-325mg 5mg-325mg 1 tab PO Q6H PRN PRN Pain 3 days #10 TABLETS 12/15/23 [Rx Last Taken Unknown] Allergy/AdvReac Type Severity Reaction Status Date / Time losartan AdvReac Intermediate Nasal Verified 12/15/23 04:21 congestion & cough amlodipine AdvReac Mild high doses Verified 12/15/23 04:21 causes vasculitis. lisinopril AdvReac Other Verified 12/15/23 04:21 Sulfa (Sulfonamide AdvReac Unknown Verified 12/15/23 04:21 Antibiotics) Family History Father Hypertension Brother CVA (cerebral vascular accident) Diabetes Surgical History Encounter for loop recorder at end of battery life H/O coronary artery bypass surgery (02/13/15) History of loop recorder (04/17/15) Social History Smoking Status: Former smoker alcohol intake: never substance use type: does not use caffeine: Yes Type: coffee Number of servings: 2 what type of physical activity do you participate in: walking and other details: tredmill frequency: 3-4 times per week duration: 30-45 minutes/day seatbelt use: always do you feel safe at home: Yes ROS ROS ED Constitutional Constitutional ED: Denies chills or fever(s) Eyes Eyes: Denies blurry vision or change in vision ENT ENT ED: Denies rhinorrhea or sore throat Cardiovascular Cardiovascular: Denies chest pain or palpitations Respiratory/Chest Respiratory/Chest: Denies cough or dyspnea Gastrointestinal Gastrointestinal: Denies nausea or vomiting Genitourinary Genitourinary ED: Denies dysuria or hematuria Musculoskeletal Musculoskeletal: Denies back pain or neck pain Integumentary Denies abscess or rash Neurologic Neurologic: Denies headache(s) or weakness Allergic/Immunologic Allergic/Immunologic ED: Denies mouth swelling or urticaria EXAM Physical Exam Const Vital Signs: 12/15/23 04:21 Temperature 98.1 F Temperature Source Temporal Pulse Rate 67 Respiratory Rate 18 Blood Pressure 143/79 H Blood Pressure Mean 100 Pulse Ox 97 Positive well nourished and well developed General Appearance ED: well developed and NAD HEENT Reports moist mucous membranes Neck full ROM and supple Extremity Extremity Narrative: There is tenderness and edema over the right ankle. There is no warmth. There is no erythema noted. Range of motion was limited in all motions of the right ankle secondary to pain. Pedal pulses are equal bilateral. Sensation was intact to light touch in all digits. Capillary refill was less than 2 seconds in all digits. There is no ecchymosis or deformity noted. Neuro oriented x3, CN's II-XII intact bilaterally, moves all extremities and no sensory deficits noted Sensorium / Orientation: alert Motor Exam: strength 5/5 throughout Psych mental status grossly normal MDM MDM MDM Narrative Medical decision making narrative: Differential diagnosis includes gout, occult fracture, sprain, and contusion. X-rays of the right ankle will be obtained to assess for occult fracture and degenerative arthritis. CBC will be obtained to assess for leukocytosis and anemia. Basic metabolic profile will be obtained to assess for electrolyte abnormality and renal function. Uric acid level will be obtained to assess for gout. Lab Data Attestation: I reviewed the patient's lab results. Lab results narrative: CBC was reviewed and was within normal limits. Basic metabolic profile was reviewed and was essentially within normal limits. Uric acid was reviewed and was normal at 4.3. Labs: Laboratory Results - last 24 hr 12/15/23 05:00 WBC 7.9 RBC 4.68 Hgb 14.9 Hct 44.6 MCV 95.3 H MCH 31.8 MCHC 33.4 RDW Std Deviation 52.8 H RDW Coeff of Fe 15.1 H Plt Count 141 L MPV 10.5 Immature Gran % (Auto) 0.400 Neut % (Auto) 70.4 H Lymph % (Auto) 16.3 L [place] % (Auto) 10.5 H Eos % (Auto) 1.6 Baso % (Auto) 0.8 Absolute Neuts (auto) 5.6 Absolute Lymphs (auto) 1.29 Nucleated RBC % 0 Sodium 139 Potassium 3.4 L Chloride 106 Carbon Dioxide 27.0 Anion Gap 6 BUN 26 H Creatinine 1.21 Estim Creat Clear Calc 43.00 Est GFR (MDRD) Af Amer 74 Est GFR (MDRD) Non-Af 61 BUN/Creatinine Ratio 21.5 H Glucose 143 H Uric Acid 4.3 Calcium 8.9 Radiography Diagnostic Testing: Clinical Impression(s) from Imaging Studies Ankle X-Ray 12/15/23 04:41 IMPRESSION: 1. Severe degenerative changes of talocalcaneal articulations with surrounding heterotopic bone formation. 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 2. No definite demonstration of an active destructive process, however, MRI would have greater sensitivity. Electronically Signed: Carloz Yadav MD at 5:30 EST , X-rays of the right ankle were obtained. There are 3 views. On my independent interpretation, there are degenerative changes. There is no acute fracture. Radiologist also interpreted the x-rays and agrees. Treatment and Re-Evaluation Narrative: Patient was given a dose of Crapo here. Patient was advised of his findings. Patient states he would prefer a stirrup splint instead of a walking boot. Patient was instructed to ice and elevate his right ankle. Patient was given a prescription for a short course of Crapo. Patient was instructed to follow-up with his primary care physician in 5 to 7 days. Patient was instructed return if worse in any way. Patient understood and was agreeable with the plan. All questions were answered. Discharge Plan Triage Chief Complaint: Lower Extremity Injury ED Provider: Prasanna Ogden Dx/Rx/DC Orders Clinical Impression: Acute right ankle pain, Acute gouty arthritis Instructions: ED Gout, ED Gout Diet Prescriptions: New hydrocodone-acetaminophen [hydrocodone-acetaminophen] 5-325 mg tablet 1 tab PO Q6H PRN PRN (Reason: Pain) 3 Days Qty: 10 0RF No Action rosuvastatin [Crestor] 40 mg tablet 40 mg PO DAILY zinc gluconate 30 mg tablet 30 mg PO DAILY calcium carbonate-vitamin D3 [Calcium 600 with Vitamin D3] 600 mg-12.5 mcg (500 unit) capsule 1 cap PO DAILY multivitamin [Daily Multi-Vitamin] Tablet 1 tab PO DAILY allopurinol 300 MG tablet 300 mg PO DAILY Qty: 30 0RF Patient Comments: prevention of gout or uric acid aspirin 81 MG tablet,chewable 81 mg PO DAILY Qty: 30 0RF Patient Comments: BLOOD THINNER clopidogrel 75 MG tablet 75 mg PO DAILY Qty: 30 0RF amlodipine 5 mg tablet 5 mg PO DAILY Qty: 90 3RF doxazosin [Cardura] 2 mg tablet 2 mg PO DAILY Qty: 90 3RF hydrochlorothiazide 12.5 mg capsule 12.5 mg PO DAILY Qty: 90 3RF Primary Care Provider: Yasmany Smith Referrals: Yasmany Smith MD [Primary Care Provider] - 3-5 Days Disposition Disposition: Home, Self Care
--- NOTE | 2023-12-15 04:41 | RAD_ITS ---
EXAM: XR RIGHT ANKLE COMPLETE, 3 OR MORE VIEWS CLINICAL INDICATION: Injury/Pain Injury/Pain TECHNIQUE: Frontal, lateral and oblique views of the right ankle. COMPARISON: No relevant prior studies available. FINDINGS: BONES/JOINTS: There is heterogeneous sclerosis and lucency of the talus and calcaneus, which is most prominent in the region of the talocalcaneal articulations, which probably represents severe degenerative arthrosis. There is heterotopic bone formation overlying the posterior aspect of the posterior talocalcaneal articulation. Posterior talocalcaneal joint space is not clearly seen and I suspect that this represents degenerative or ankylosis and/or ankylosis due to remote trauma. There is mild degenerative arthrosis of the tibiotalar articulation. No acute fracture. No subluxation. Normal alignment. SOFT TISSUES: Nonspecific soft tissue swelling.. No soft tissue gas. No radiopaque foreign body. RAD/Ankle min 3 Views IMPRESSION: 1. Severe degenerative changes of talocalcaneal articulations with surrounding heterotopic bone formation. 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 2. No definite demonstration of an active destructive process, however, MRI would have greater sensitivity. Electronically Signed: Carloz Yadav MD at 5:30 EST Reading Location ID and State: [facility] / [place] , Service support ,
[2023-12-15] MEDS: HYDROcodone Bitartrate/Apap 5/325 Tablet PO (04:52)
[2023-12-15 05:25] LABS: Absolute Lymphocyte Count 1.29 X10^3/uL (0.83-4.51); Absolute Neutrophil Count 5.6 X10^3/uL (2.0-7.7); Basophil# 0.06 X10^3/uL; Basophil% 0.8 % (0-1); Eosinophil# 0.13 X10^3/uL; Eosinophils% 1.6 % (0-5); Hematocrit 44.6 % (40-54); Hemoglobin 14.9 g/dL (13.0-16.5); Lymphocyte # 1.29 X10^3/ul (0.83-4.51); Lymphocyte % 16.3 % (19-41); Mean Corp Hgb Conc 33.4 g/dL (32-36); Mean Corpuscular Hgb 31.8 pg (27.0-32.0); Mean Corpuscular Volume 95.3 fL (80-94); Mean Platelet Vol. 10.5 fl (6.2-12.0); Monocyte# 0.83 X10^3/uL; Monocyte% 10.5 % (0-10); NRBC Flagged by Analyzer 0 % (0-5); Neutrophil # 5.56 X10^3/uL (2.7-7.7); Neutrophil % 70.4 % (47-70); Platelet Count 141 K/mm3 (150-450); RBC Distribution Width CV 15.1 % (11.6-14.6); RBC Distribution Width SD 52.8 fl (35.1-43.9); Red Blood Count 4.68 M/mm3 (4.6-6.2); White Blood Count 7.9 K/mm3 (4.4-11.0)
--- OUTSIDE RECORDS SUMMARY | 2023-12-15 05:40 | XMS RPT_ITS | CCD ---
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 Name Role Phone Harrison Castellano MD Primary Care Provider [phone] HARRISON CASTELLANO Primary Care Unavailable VELMA DE LA ROSA JR Referring Unavailable HARRISON CASTELLANO Primary Care Unavailable VELMA DE LA ROSA JR Referring Unavailable HARRISON CASTELLANO Primary Care Unavailable VELMA DE LA ROSA JR Attending Unavailable HARRISON CASTELLANO Primary Care Unavailable HARRISON CASTELLANO Primary Care Unavailable HARRISON CASTELLANO Attending Unavailable HARRISON CASTELLANO Primary Care Unavailable HARRISON CASTELLANO Referring Unavailable HARRISON CASTELLANO Primary Care Unavailable HARRISON CASTELLANO Primary Care Unavailable HARRISON CASTELLANO Attending Unavailable HARRISON CASTELLANO Primary Care Unavailable HARRISON CASTELLANO Referring Unavailable HARRISON CASTELLANO Primary Care Unavailable HARRISON CASTELLANO Referring Unavailable Allergies Allergy Classification Reported Allergen(s) Allergy Type Date of Onset Reaction(s) Facility (20 sources) benazepril; Translations: [BENAZEPRIL] Drug Allergy 11-10-2017 Cough [facility] Work Phone: (20 sources) Sulfonamides (Antibiotic); Translations: [SULFA (SULFONAMIDE ANTIBIOTICS)] Drug Allergy 11-22-2016 Itching [facility] Work Phone: Medications Current Medications Medication Drug Class(es) Dates Sig (Normalized) Sig (Original) amoxicillin 875 mg / clavulanate 125 mg oral tablet (4 sources) Penicillin-class Antibacterial Start: 08-26-2022 End: 09-02-2022 take 1 tablet by mouth every twelve hours amoxicillin-clav ulanic acid (AUGMENTIN) 875-125 mg per tablet Indications: Acute cough Take 1 tablet by mouth every 12 hours for 7 days. 20 tablet 0 08/26/2022 09/02/2022 Active Completed/Discontinued Medications Medication Drug Class(es) Dates Sig (Normalized) Sig (Original) allopurinol 300 mg oral tablet (20 sources) Xanthine Oxidase Inhibitor Start: 08-23-2021 End: 08-13-2023 take 1 tablet by mouth once daily allopurinol (ZYLOPRIM) 300 mg tablet Indications: Chronic gout without tophus, unspecified cause, unspecified site Take 1 tablet by mouth once daily. 90 tablet 3 08/14/2023 Active Problems Active Problems Problem Classification Problem Date Documented Date Episodic/Chronic Cardiac dysrhythmias (20 sources) Paroxysmal atrial fibrillation; Translations: [Paroxysmal atrial fibrillation] Onset: 03-08-2015 02-21-2022 Chronic Coagulation and hemorrhagic disorders (20 sources) Platelet count below reference range; Translations: [Thrombocytopenia, unspecified] Onset: 08-24-2021 02-21-2022 Chronic Coronary atherosclerosis and other heart disease (20 sources) Coronary arteriosclerosis; Translations: [Atherosclerotic heart disease of [place] coronary artery without angina pectoris] Onset: 02-21-2022 02-21-2022 Chronic Disorders of lipid metabolism (20 sources) Mixed hyperlipidemia; Translations: [Mixed hyperlipidemia] Onset: 09-29-2017 02-21-2022 Chronic Essential hypertension (20 sources) Benign essential hypertension; Translations: [Essential (primary) hypertension] Onset: 08-01-2023 02-21-2022 Chronic Gout and other crystal arthropathies (20 sources) Gout; Translations: [Gout, unspecified] Onset: 10-16-2006 02-21-2022 Chronic Heart valve disorders (12 sources) Aortic incompetence, non-rheumatic ; Translations: [Nonrheumatic aortic (valve) insufficiency] Onset: 09-20-2022 09-20-2022 Chronic Hyperplasia of prostate (20 sources) Benign prostatic hyperplasia; Translations: [Benign prostatic hyperplasia with lower urinary tract symptoms] Onset: 11-06-2015 02-21-2022 Chronic Osteoarthritis (9 sources) Arthritis of hand; Translations: [Primary osteoarthritis, unspecified hand] Onset: 03-21-2023 03-21-2023 Chronic Other and ill-defined cerebrovascular disease (2 sources) Cerebral atherosclerosis; Translations: [Cerebral atherosclerosis] Chronic Other and ill-defined cerebrovascular disease (1 source) Cerebral atherosclerosis; Translations: [Intracranial atherosclerosis] Onset: 08-21-2023 Chronic Other circulatory disease (20 sources) Disease of non-coronary systemic artery; Translations: [Disorder of arteries and arterioles, unspecified] Onset: 09-17-2019 02-21-2022 Chronic Other circulatory disease (1 source) Disorder of arteries and arterioles, unspecified; Translations: [Vertebral artery disease (HCC)] Onset: 03-25-2022 Chronic Other diseases of kidney and ureters (2 sources) Kidney lesion; Translations: [Disorder of kidney and ureter, unspecified] 09-26-2023 Episodic Other diseases of kidney and ureters (2 sources) Multiple acquired kidney cysts; Translations: [Cyst of kidney, acquired] Onset: 09-30-2023 09-30-2023 Episodic Other diseases of kidney and ureters (2 sources) Acquired renal cystic disease; Translations: [Cyst of kidney, acquired] Onset: 09-30-2023 09-30-2023 Episodic Other diseases of kidney and ureters (1 source) Disorder of kidney and ureter, unspecified; Translations: [Kidney lesion, [place], right] Onset: 09-26-2023 Episodic Other lower respiratory disease (1 source) Cough; Translations: [Acute cough] Episodic Other screening for suspected conditions (not mental disorders or infectious disease) (20 sources) Raised prostate specific antigen; Translations: [Elevated prostate specific antigen [PSA]] Onset: 02-21-2022 02-21-2022 Episodic Other upper respiratory disease (1 source) Seasonal allergy; Translations: [Other seasonal allergic rhinitis] 06-14-2023 Chronic Other upper respiratory disease (1 source) Nasal congestion; Translations: [Nasal congestion] 06-14-2023 Episodic Other upper respiratory infections (1 source) Acute upper respiratory infection; Translations: [Acute upper respiratory infection, unspecified] 08-06-2023 Episodic Pleurisy; pneumothorax; pulmonary collapse (1 source) Pleural effusion; Translations: [Pleural effusion, not elsewhere classified] Episodic Transient cerebral ischemia (3 sources) Vertebrobasilar artery syndrome; Translations: [Vertebro-basilar artery syndrome] Onset: 08-21-2023 Chronic Viral infection (3 sources) COVID-19; Translations: [Other specified viral infection] Onset: 08-28-2022 Episodic Past or Other Problems Problem Classification Problem Date Documented Date Episodic/Chronic Administrative/social admission (12 sources) Advance directive discussed with patient; Translations: [Other specified counseling] Onset: 09-20-2022 09-20-2022 Episodic Diabetes mellitus without complication (20 sources) High hemoglobin A1c level; Translations: [Other abnormal glucose] Onset: 09-17-2019 02-21-2022 Episodic Genitourinary symptoms and ill-defined conditions (20 sources) Persistent proteinuria; Translations: [Persistent proteinuria, unspecified] Onset: 09-17-2021 02-21-2022 Episodic Immunizations and screening for infectious disease (1 source) Encounter for immunization; Translations: [Encounter for immunization] Onset: 03-21-2023 Episodic Other aftercare (9 sources) Patient encounter status; Translations: [Other tank terminal gauger (current) drug therapy] Onset: 03-21-2023 03-21-2023 Episodic Other aftercare (1 source) Other mcfp (current) drug therapy; Translations: [Medication management] Onset: 03-21-2023 Episodic Other circulatory disease (20 sources) History of cerebrovascular accident; Translations: [Personal history of transient ischemic attack (TIA), and cerebral infarction without residual deficits] Onset: 09-17-2019 02-21-2022 Episodic Other circulatory disease (1 source) Personal history of transient ischemic attack (TIA), and cerebral infarction without residual deficits; Translations: [History of stroke] Onset: 02-21-2022 Episodic Other diseases of veins and lymphatics (20 sources) Venous insufficiency of leg; Translations: [Venous insufficiency (chronic) (peripheral)] Onset: 03-31-2019 02-21-2022 Episodic Other infections; including parasitic (12 sources) Personal history of other infectious and parasitic diseases; Translations: [History of COVID-19] Onset: 08-28-2022 09-20-2022 Episodic Other male genital disorders (8 sources) Disorder of prostate; Translations: [Disorder of prostate, unspecified] Onset: 08-23-2021 08-23-2021 Episodic Other nervous system disorders (18 sources) Ataxia; Translations: [Ataxia, unspecified] Onset: 09-15-2019 09-17-2019 Episodic Residual codes; unclassified (12 sources) Active living will ; Translations: [Other specified health status] Onset: 09-20-2022 09-20-2022 Episodic Results Test Name Value Interpretation Reference Range Facil ity Vital Signs Date Time Vital Sign Value Performing Clinician Estevan sevilla 08-06-2023 09:46-0400 Body temperature 97.81 [degF] Shania Harris APRN.LITHOGRAPHIC PRESS OPERATOR Work Phone: [facility] 08-06-2023 09:46-0400 Body weight 77.2 kg Shania Harris APRN.LITHOGRAPHIC PRESS OPERATOR Work Phone: [facility] 08-06-2023 09:46-0400 Diastolic blood pressure 71 mm[Hg] Shania Harris APRN.LITHOGRAPHIC PRESS OPERATOR Work Phone: [facility] 08-06-2023 09:46-0400 Heart rate 71 /min Shania Harris APRN.LITHOGRAPHIC PRESS OPERATOR Work Phone: [facility] 08-06-2023 09:46-0400 Respiratory rate 20 /min Shania Harris APRN.LITHOGRAPHIC PRESS OPERATOR Work Phone: [facility] 08-06-2023 09:46-0400 SaO2% (BldA) [Mass fraction] 95 % Shania Harris APRN.LITHOGRAPHIC PRESS OPERATOR Work Phone: [facility] 08-06-2023 09:46-0400 Systolic blood pressure 178 mm[Hg] Shania Harris APRN.LITHOGRAPHIC PRESS OPERATOR Work Phone: [facility] 08-01-2023 11:40-0400 Body weight 75.3 kg Velma De La Rosa Jr., MD Work Phone: [facility] 08-01-2023 11:40-0400 Diastolic blood pressure 66 mm[Hg] Velma De La Rosa Jr., MD Work Phone: [facility] 08-01-2023 11:40-0400 Heart rate 67 /min Velma De La Rosa Jr., MD Work Phone: [facility] 08-01-2023 11:40-0400 Respiratory rate 18 /min Velma De La Rosa Jr., MD Work Phone: [facility] 08-01-2023 11:40-0400 SaO2% (BldA) [Mass fraction] 97 % Velma De La Rosa Jr., MD Work Phone: [facility] 08-01-2023 11:40-0400 Systolic blood pressure 153 mm[Hg] Velma De La Rosa Jr., MD Work Phone: [facility] 06-14-2023 10:14-0400 Body temperature 98.4 [degF] Caden Montenegro MD Work Phone: [facility] 06-14-2023 10:14-0400 Body weight 75.93 kg Caden Montenegro MD Work Phone: [facility] 06-14-2023 10:14-0400 Diastolic blood pressure 73 mm[Hg] Caden Montenegro MD Work Phone: [facility] 06-14-2023 10:14-0400 Heart rate 69 /min Caden Montenegro MD Work Phone: [facility] 06-14-2023 10:14-0400 Respiratory rate 18 /min Caden Montenegro MD Work Phone: [facility] 06-14-2023 10:14-0400 SaO2% (BldA) [Mass fraction] 96 % Caden Montenegro MD Work Phone: [facility] 06-14-2023 10:14-0400 Systolic blood pressure 176 mm[Hg] Caden Montenegro MD Work Phone: [facility] 08-30-2022 08:39-0500 Body temperature 99.3 [degF] Teresa Sanchez GENERAL OPERATIONS AGENT.LITHOGRAPHIC PRESS OPERATOR Work Phone: [facility] 08-30-2022 08:39-0500 Body weight 73.48 kg Teresa Sanchez GENERAL OPERATIONS AGENT.LITHOGRAPHIC PRESS OPERATOR Work Phone: [facility] 08-30-2022 08:39-0500 Diastolic blood pressure 68 mm[Hg] Teresa Sanchez GENERAL OPERATIONS AGENT.LITHOGRAPHIC PRESS OPERATOR Work Phone: [facility] 08-30-2022 08:39-0500 Heart rate 68 /min Teresa Podlogar GENERAL OPERATIONS AGENT.LITHOGRAPHIC PRESS OPERATOR Work Phone: [facility] 08-30-2022 08:39-0500 Respiratory rate 18 /min Teresa Podlogar GENERAL OPERATIONS AGENT.LITHOGRAPHIC PRESS OPERATOR Work Phone: [facility] 08-30-2022 08:39-0500 SaO2% (BldA) [Mass fraction] 98 % Teresa Podlogar GENERAL OPERATIONS AGENT.LITHOGRAPHIC PRESS OPERATOR Work Phone: [facility] 08-30-2022 08:39-0500 Systolic blood pressure 142 mm[Hg] Teresa Podlogar GENERAL OPERATIONS AGENT.LITHOGRAPHIC PRESS OPERATOR Work Phone: [facility] 08-26-2022 15:21-0500 SaO2% (BldA) [Mass fraction] 93 % Erin Bogner PA-C Work Phone: [facility] 08-26-2022 10:34-0500 Body temperature 99.61 [degF] Erin Bogner PA-C Work Phone: [facility] 08-26-2022 10:34-0500 Body weight 74.84 kg Erin Bogner PA-C Work Phone: [facility] 08-26-2022 10:34-0500 Diastolic blood pressure 64 mm[Hg] Erin Bogner PA-C Work Phone: [facility] 08-26-2022 10:34-0500 Heart rate 70 /min Erin Bogner PA-C Work Phone: [facility] 08-26-2022 10:34-0500 Respiratory rate 16 /min Erin Bogner PA-C Work Phone: [facility] 08-26-2022 10:34-0500 Systolic blood pressure 132 mm[Hg] Erin Bogner PA-C Work Phone: [facility] 03-18-2022 13:01-0400 Body temperature 97.5 [degF] Velma De La Rosa Jr., MD Work Phone: [facility] 03-18-2022 13:01-0400 Body weight 75.3 kg Velma De La Rosa Jr., MD Work Phone: [facility] 03-18-2022 13:01-0400 Diastolic blood pressure 68 mm[Hg] Velma De La Rosa Jr., MD Work Phone: [facility] 03-18-2022 13:01-0400 Heart rate 69 /min Velma De La Rosa Jr., MD Work Phone: [facility] 03-18-2022 13:01-0400 Respiratory rate 18 /min Velma De La Rosa Jr., MD Work Phone: [facility] 03-18-2022 13:01-0400 SaO2% (BldA) [Mass fraction] 96 % Velma De La Rosa Jr., MD Work Phone: [facility] 03-18-2022 13:01-0400 Systolic blood pressure 142 mm[Hg] Velma De La Rosa Jr., MD Work Phone: [facility] Encounters Encounter Date Encounter Type Care Provider Facility Start: 11-21-2023 Chart abstracting Harrison ingram MD Work Phone: [facility] Procedures Date Procedure Procedure Detail Performing Clinician Start: 08-26-2022 COVID WITH FLUA+B, ROUTINE Erin De La Rosa PA-C Work Phone: Start: 03-08-2015 History of coronary artery bypass grafting S/P CABG x 5 Harrison Castellano MD Work Phone: Plan of Treatment Date Care Activity Detail Author Start: 03-14-2030 Urine microalbumin profile DTa P,Tdap,Td Vaccine (2 - Td or Tdap) [facility] Start: 09-02-2026 Diabetes Screening Diabetes Screenin [facility] Start: 03-14-2026 DIABETES SCREEN DIABETES SCREEN [facility] Start: 03-14-2026 Diabetes Screening Diabetes Screenin [facility] Start: 09-17-2025 DIABETES SCREEN DIABETES SCREEN [facility] Start: 02-21-2025 DIABETES SCREEN DIABETES SCREEN [facility] Start: 10-03-2024 Covid-19 Vaccine ( season) Covid-19 Vaccine () [facility] Immunizations Immunization Date Immunization Notes Care Provider Sue wan 07-24-2022 influenza virus vacc ine, unspecified formulation Harrison Castellano MD Work Phone: [facility] 02-21-2022 pneumococcal polysaccharide vaccine, 23 valent Harrison Castellano MD Work Phone: [facility] 07-16-2021 influenza, high-dose , quadrivalent vaccine (FLUZONE HIGH DOSE QUADRIVALENT) Harrison Castellano MD Work Phone: [facility] 07-04-2020 influenza, high-dose , quadrivalent vaccine (FLUZONE HIGH DOSE QUADRIVALENT) Harrison Castellano MD Work Phone: [facility] 03-14-2020 tetanus and diphther ia toxoids, adsorbed, preservative free, for adult use (5 Lf of tetanus toxoid and 2 Lf of diphtheria toxoid) Harrison Castellano MD Work Phone: [facility] 03-14-2020 tetanus toxoid, redu oscar diphtheria toxoid, and acellular pertussis vaccine, adsorbed Harrison Castellano MD Work Phone: [facility] Work Phone: 07-14-2019 influenza, seasonal, injectable, preservative free Velma De La Rosa Jr., MD Work Phone: [facility] 07-12-2019 Seasonal trivalent influenza vaccine, adjuvanted, preservative free Velma De La Rosa Jr., MD Work Phone: [facility] 07-28-2018 influenza, high dose seasonal, preservative-free Harrison Castellano MD Work Phone: [facility] 07-28-2018 Seasonal trivalent influenza vaccine, adjuvanted, preservative free Velma De La Rosa Jr., MD Work Phone: [facility] 07-13-2018 influenza virus vacc ine, unspecified formulation Velma De La Rosa Jr., MD Work Phone: [facility] 07-28-2017 influenza, high dose seasonal, preservative-free Hrarison Castellano MD Work Phone: [facility] 04-12-2015 pneumococcal conjuga te vaccine, 13 valent Harrison Castellano MD Work Phone: [facility] 04-12-2015 pneumococcal polysaccharide vaccine, 23 valent Harrison Castellano MD Work Phone: [facility] 04-25-2014 TD(adult) unspecifie d formulation Harrison Castellano MD Work Phone: [facility] 04-21-2014 TD(adult) unspecifie d formulation Harrison Castellano MD Work Phone: [facility] 04-21-2014 tetanus and diphther ia toxoids, adsorbed, preservative free, for adult use (2 Lf of tetanus toxoid and 2 Lf of diphtheria toxoid) Harrison Castellano MD Work Phone: [facility] 08-02-2013 influenza virus vacc ine, unspecified formulation Harrison Castellano MD Work Phone: [facility] 07-22-2012 influenza virus vacc ine, unspecified formulation Harrison Castellano MD Work Phone: [facility] 11-22-2010 zoster vaccine, live Harrison Castellano MD Work Phone: [facility] 08-04-2010 influenza virus vacc ine, unspecified formulation Harrison Castellano MD Work Phone: [facility] Work Phone: 08-04-2009 influenza virus vacc ine, unspecified formulation Harrison Castellano MD Work Phone: [facility] Work Phone: 01-09-2004 pneumococcal polysaccharide vaccine, 23 valpravin Castellano MD Work Phone: [facility] Work Phone: 07-15-1996 pneumococcal polysaccharide vaccine, 23 valent Harrison Castellano MD Work Phone: [facility] Work Phone: 07-12-1978 influenza virus vacc ine, whole virus Harrison Castellano MD Work Phone: [facility] Work Phone: Payers Date Payer Category Payer Private Health Insurance [employer]LL[employer] PPO [id number] 2005-Present [phone] [address] [place] [address] PPO [id number] 2005 Private Health Insurance [employer]LL[employer] PPO [id number] 2005-Present [phone] [address] [place] [address] PPO [id number] 2005 Private Health Insurance [id number] 2005 Medicare MEDICARE MEDICAR E A AND B [id number] 2005-Present [phone] [place] [address] Medicare [id number] 2005 Medicare MEDICARE MEDICAR E A AND B [id number] 2005-Present [phone] [place] [address] Medicare [id number] 2005 Medicare [id number] Social History Date Type Detail Facility Start: 10-28-2011 Tobacco smoking status NHIS Never smoked tobacco [facility] Work Phone: Start: 02-21-2022 End: 08-06-2023 Alcohol intake Current non-drinker of alcohol (finding) [facility] Start: 02-12-2021 End: 08-21-2021 History SDOH Alcohol Frequency 1 [facility] Start: 02-12-2021 History SDOH Alcohol Std Drinks 98 [facility] Start: 02-12-2021 History SDOH Social Connections Phone 5 [facility] Start: 02-12-2021 History SDOH Social Connections Get Together 4 [facility] Start: 02-12-2021 History SDOH Social Connections Druze 3 [facility] Start: 02-12-2021 End: 08-21-2021 History SDOH Transport Med 2 [facility] Start: 02-12-2021 Education 15 [facility] Start: 1940 Sex Assigned At Male [facility] Start: 02-11-2022 End: 08-26-2022 Exposure to SARS-CoV-2 (event) Not sure [facility] Start: 10-28-2011 Tobacco use and exposure Smokeless tobacco non-user [facility] Start: 02-12-2021 End: 03-21-2023 History of Social function [facility] Start: 02-12-2021 End: 03-21-2023 Social connection and isolation panel [facility] Do you belong to any clubs or organizations such as buddhist groups, unions, fraternal or athletic groups, or school groups? Yes [facility] Are you now , , , , never or living with a partner? [facility] How often to you hav e a drink containing alcohol? Never [facility] How many standard dr inks containing alcohol do you have on a typical day? Patient refused [facility] Do you feel stress - tense, restless, nervous, or anxious, or unable to sleep at night because your mind is troubled all the time - these days [OSQ] Not at all [facility] (I/We) worried wheth er (my/our) food would run out before (I/we) got money to buy more. Never true [facility] In the past 12 month s, was there a time when you were not able to pay the mortgage or rent on time? No [facility] Start: 09-19-2019 Gender identity Identifies as male gender (finding) [facility] Start: 09-19-2019 Sexual orientation Heterosexual (finding) [facility] Clinical Notes 11-22-2016 to 11-21-2023 Abdulkadir Watkins LPN - 11/21/2023 7:08 AM Irlanda Rodriguez RDMS - 09/26/2023 9:15 AM ESTTelephone Ac - Lizzette Llanos - 09/23/2023 8:56 AM GalinaAnnemarie BESSY - 07/10/2023 4:10 PM EDT Note Date & Type Note Facility 11-21-2023 Note HNO ID: [id number] Author: ABDULKADIR WATKINS LPN Service: ? Author Type: LICENSED NURSE Type: Progress Notes Filed: 11/21/2023 07:14 Note Text: Scan on 11/20/2023 2:34 PM by ProviderOfelia PA-C: Consultation - [facility] 11-21-2023 History of Present illness Narrative Scan on 11/20/2023 2:34 PM by Ofelia Alcantara PA-C: Consultation - documented in this encounter [facility] 10-03-2023 Note HNO ID: [id number] Author: Harrison Castellano MD Service: ? Author Type: Physician Type: Progress Notes Filed: 10/03/2023 11:20 AM Note Text: Igor Cronin is a 83 year old male here for a Medicare wellness visit. Medicare Health Risk Assessment General Health Very good Exercise: Minutes/Day 60 min Exercise: Days/Week 3 days Alcohol: Daily Use Alcohol: Drinks/Day Patient does not drink Alcohol: 6 or more drinks Never Feel off balance No Concerns: Teeth/Dentures No Concerns: Sexual function No Troubled by feelings None of the above Frequency: Eating healthy diet Nearly every day ADLs requiring help None of the above Safety precautions in home/vehicle Yes Smoke, vape, chews tobacco No Difficulty hearing No Difficulty seeing No Current Providers Specialists: I have reviewed specialist-related care of the patient in the medical record. Current care team: Patient Care Team: Harrison Castellano MD as PCP - General (Family Medicine) Dr. Mcfarlane (Cardio) Dr. De La Rosa (Neuro) Optho Medical/Family history review Reviewed and updated problem list, medical/surgical/family/social history, medications, and allergies. Opioid use review Opioid Medications (last 90 days) Some values may be hidden. Unless noted otherwise, only the newest values recorded on each date are displayed. Opioid Medications No data to display. Depression screening Depression Screening PHQ-2 Score 03/21/2023 0 Depression screening tool completed and reviewed. Based on score and interview, patient is not at risk for depression. Screening tool discussed with patient, and I recommended no further intervention at this time. Cognitive screening Cognitive screening reviewed and no further action needed (score 3-5) Functional Observation Was the patient's timed Up AND Go test unsteady or ? 12 seconds? No Advance Care Planning Surrogate decision maker and/or advance care plan documented Measurements BP 152/68 Pulse 64 Resp 18 Ht 5' 3.25 (1.61m) Wt 161 lb (73.0kg) BMI 28.28 kg/(m2). Seeing Optho Additional screenings: No results found. Assessment/Plan Medicare annual wellness visit, subsequent (Z00.00) - Counseled on healthy diet and regular exercise - Fall avoidance information provided - Personalized prevention plan provided See Below Chief Complaint Patient presents with: Medicare Wellness Exam HPI Igor Cronin is a 83 year old male who presents here today for Chronic Medical Conditions. and Medicare Annual Visit. Patient with Hx of CAD, HTN, hyperlipidemia, elevated A1c, A. Fib, thrombocytopenia, gout, venous insufficiency, BPH, proteinuria as well as those reviewed and addressed below and in ROS. Patient declined COVID. Any new concerns? None Any recent ER/hospital? None Past medical history, appointments, medications, allergies reviewed. Previous Medical History PAST MEDICAL HISTORY Diagnosis Date Acquired renal cyst of right kidney 09/30/2023 US 09/2023: simple upper pole Advance directive discussed with patient 09/20/2022 Discussed 09/2022: Patient to bring in copies ASHD (arteriosclerotic heart disease) Benign non-nodular prostatic hyperplasia with lower urinary tract symptoms 11/06/2015 Chronic anticoagulation 03/08/2015 Diverticulosis of colon (without mention of hemorrhage) Elevated hemoglobin A1c 09/17/2019 Elevated PSA 02/21/2022 Encounter for Medicare annual wellness exam 08/23/2021 Medical B eligibility date 04/12/2005 Date of last exam 08/23/2021 Essential hypertension, benign Gout, unspecified Hand arthritis 03/21/2023 Trial of Voltaren Gel 03/2023 History of COVID-19 08/28/202208/2022 History of stroke 09/17/2019 Hyperlipidemia, mixed 09/29/2017 Internal hemorrhoids without mention of complication Living will in place 09/20/2022 DPA: Sona () Medicare annual wellness visit, subsequent 08/23/2021 Medical B eligibility date 04/12/2005 Date of last exam 09/20/2022 Multiple acquired cysts of kidney 09/30/2023 US 09/2023: Left superior pole Nonrheumatic aortic valve insufficiency 09/20/2022 Mild-mod on US 10/2021 Paroxysmal atrial fibrillation (HCC) 03/08/2015 Persistent proteinuria 09/17/2021 Consult to nephrology S/P CABG x 5 03/08/2015 Thrombocytopenia (HCC) 08/24/2021 130s- monitor Umbilical hernia 10/29/2012 Venous insufficiency of right leg 03/31/2019 Vertebral artery disease (HCC) 09/17/2019 Previous Surgical History PAST SURGICAL HISTORY Procedure Laterality Date 2D ECHO (EXEP) 10/25/2021 EF=65%, 1-2+ AI COLONOSCOPY FLX DX W/COLLJ SPEC WHEN PFRMD 12/03/2007 EXPLOR HEART SURG WND W CP BYPASS 02/17/2015 bypass x 5/ [facility] LEFT HEART CATH 02/13/2015 [facility] - see scanned documents RPR 1ST INGUN HRNA AGE 5 YRS/> REDUCIBLE Hernia repair, inguinal RPR UMBILICAL HERNIA < 5 YRS REDUCIBLE Hernia repair, umbilical SKIN BX, 1 LESION Right 11/22/2016 Shave bx right posterior shoulde (more content not included)... [facility] 09-26-2023 Note HNO ID: [id number] Author: Irlanda Lyon RDMS Service: ? Author Type: Anti Tank Missileman Type: Progress Notes Filed: 09/26/2023 10:00 AM Note Text: Radiology Service Progress Note PATIENT NAME: Igor Cronin DATE OF SERVICE: September 26, 2023 TIME: 10:00 AM PATIENT IDENTITY VERIFICATION COMPLETED USING TWO (2) IDENTIFIERS: Name and Date of confirmed by patient verbally. FALL SCREENING: Has the patient had 2 falls in the last year or 1 fall with injury or currently using an Ambulatory Assistive Device (Walker, Cane, Wheelchair, Crutches, etc.)? No PATIENT GENDER DATA: Male PATIENT RELEVANT IMPLANT DATA REVIEWED: Not Applicable RADIOLOGY DEPARTMENT: Ultrasound PERIPHERAL IV DATA: Not applicable SIGNED BY: Irlanda Lyon RDMS September 26, 2023 10:00 AM [facility] 09-26-2023 History of Present illness Narrative Radiology Service Progress Note PATIENT NAME: Igor Cronin DATE OF SERVICE: September 26, 2023 TIME: 10:00 AM PATIENT IDENTITY VERIFICATION COMPLETED USING TWO (2) IDENTIFIERS: Name and Date of confirmed by patient verbally. FALL SCREENING: Has the patient had 2 falls in the last year or 1 fall with injury or currently using an Ambulatory Assistive Device (Walker, Cane, Wheelchair, Crutches, etc.)? No PATIENT GENDER DATA: Male PATIENT RELEVANT IMPLANT DATA REVIEWED: Not Applicable RADIOLOGY DEPARTMENT: Ultrasound PERIPHERAL IV DATA: Not applicable SIGNED BY: Irlanda Lyon RDMS September 26, 2023 10:00 AM documented in this encounter [facility] 09-23-2023 Miscellaneous Notes 1st call attempt, left vm TC to patient who verbalized understanding of providers message. Patient agreeable to US. Please contact and assist in scheduling. Thank you. CHRISTO Fisher Let patient know I received a copy of the CT done at [facility] ER recently that showed a density in the superior part of the right kidney. We need to get an US to further evaluate this. Order placed. documented in this encounter [facility] 09-22-2023 Miscellaneous Notes Patient has been identified by name and date of : Yes Requested Prescriptions Pending Prescriptions Disp Refills rosuvastatin (CRESTOR) 40 mg tablet 90 tablet 1 Sig: Take 1 tablet by mouth once daily. Take one tablet daily RX INSTRUCTIONS: Patient aware RX will be sent to pharmacy. No need to notify patient. Patient last office visit: 03/21/23 Patient next office visit: 10/03/23 Catrina Dao MA documented in this encounter [facility] 09-12-2023 Note HNO ID: [id number] Author: Abdulkadir Watkins LPN Service: ? Author Type: ? Type: Progress Notes Filed: 09/12/2023 5:12 PM Note Text: Scan on 09/12/2023 12:16 PM by Provider, External PA-C: Echo Scan on 09/12/2023 8:34 AM by ProviderOfelia PALauraC: Miscellaneous Lab Scan on 09/12/2023 10:12 AM by ProviderOfelia PALauraC: CT Scan Scan on 09/12/2023 9:59 AM by ProviderOfelia PA-C: CT Scan [facility] 08-14-2023 Miscellaneous Notes Request is being addressed in another encounter. Abdulkadir Watkins LPN documented in this encounter [facility] 08-06-2023 Note HNO ID: [id number] Author: Shania Harris APRN.BRENDAN Service: ? Author Type: Nurse Practitioner Type: Progress Notes Filed: 08/06/2023 10:05 AM Note Text: CC: Patient presents with: Cough: Chest congestion x4 days, wheezing HPI: Igor Cronin is a 83 year old male who presents to the office with complaint of chest congestion, head congestion, and cough, nonproductive for a few days. Symptoms are staying the same. Associated symptoms includes cough. Denies fever, nausea, vomiting , and diarrhea. Treatments tried include nothing so far. with no relief of symptoms. Sick contacts: unknown. History of asthma, frequent episodes of bronchitis, chronic bronchitis, bronchiectasis or COPD: No Smoker: No Seasonal/environmental allergies: No The ROS is otherwise negative. The patient's pmh, medications, allergies, and past visits are reviewed. PHYSICAL EXAM: BP 178/71 Pulse 71 Temp 36.6 ?C (97.8 ?F) Resp 20 Wt 77.2 kg (170 lb 3.2 oz) SpO2 95% BMI 28.32 kg/m? General appearance: alert, cooperative, pleasant, in no acute distress Head: Normocephalic Eyes: EOM's intact, conjunctiva pink and moist, no icterus, sclera white, non-injected Ears: Right ear: External ear/canal- Normal, TM - clear with good landmarks. Left ear: External ear/canal- Normal, TM - clear with good landmarks Oropharynx:moist without lesions, No erythema, exudates or tonsillar hypertrophy. Heart: Negative. RRR without obvious murmur, gallop, or rubs. No ectopy. Lungs: clear to auscultation, without rales or wheeze, good air exchange PAST MEDICAL HISTORY Diagnosis Date Advance directive discussed with patient 09/20/2022 Discussed 09/2022: Patient to bring in copies ASHD (arteriosclerotic heart disease) Benign non-nodular prostatic hyperplasia with lower urinary tract symptoms 11/06/2015 Chronic anticoagulation 03/08/2015 Diverticulosis of colon (without mention of hemorrhage) Elevated hemoglobin A1c 09/17/2019 Elevated PSA 02/21/2022 Encounter for Medicare annual wellness exam 08/23/2021 Medical B eligibility date 04/12/2005 Date of last exam 08/23/2021 Essential hypertension, benign Gout, unspecified Hand arthritis 03/21/2023 Trial of Voltaren Gel 03/2023 History of COVID-19 08/28/202208/2022 History of stroke 09/17/2019 Hyperlipidemia, mixed 09/29/2017 Internal hemorrhoids without mention of complication Living will in place 09/20/2022 DPA: Sona () Medicare annual wellness visit, subsequent 08/23/2021 Medical B eligibility date 04/12/2005 Date of last exam 09/20/2022 Nonrheumatic aortic valve insufficiency 09/20/2022 Mild-mod on US 10/2021 Paroxysmal atrial fibrillation (HCC) 03/08/2015 Persistent proteinuria 09/17/2021 Consult to nephrology S/P CABG x 5 03/08/2015 Thrombocytopenia (HCC) 08/24/2021 130s- monitor Umbilical hernia 10/29/2012 Venous insufficiency of right leg 03/31/2019 Vertebral artery disease (HCC) 09/17/2019 PAST SURGICAL HISTORY Procedure Laterality Date 2D ECHO (EXEP) 10/25/2021 EF=65%, 1-2+ AI COLONOSCOPY FLX DX W/COLLJ SPEC WHEN PFRMD 12/03/2007 EXPLOR HEART SURG WND W CP BYPASS 02/17/2015 bypass x 5/ [facility] LEFT HEART CATH 02/13/2015 [facility] - see scanned documents RPR 1ST INGUN HRNA AGE 5 YRS/> REDUCIBLE Hernia repair, inguinal RPR UMBILICAL HERNIA < 5 YRS REDUCIBLE Hernia repair, umbilical SKIN BX, 1 LESION Right 11/22/2016 Shave bx right posterior shoulder WRIST SURGERY HX 2013 ALLERGIES Sulfa (Sulfonamide Antibiotics) and Benazepril MEDICATIONS predniSONE (DELTASONE) 20 mg tablet Take 1 tablet by mouth once daily for 5 days. fluticasone (FLONASE) 50 mcg/actuation nasal spray Use 2 Sprays in each nostril once daily. Rinse mouth after use. clopidogrel (PLAVIX) 75 mg tablet Take 1 tablet by mouth once daily. rosuvastatin (CRESTOR) 40 mg tablet Take 1 tablet by mouth once daily. Take one tablet daily diclofenac (VOLTAREN ARTHRITIS PAIN) 1 % topical gel Apply 2 g to affected area four times daily. Back of hands hydroCHLOROthiazide (HYDRODIURIL, ESIDRIX) 25 mg tablet Take 12.5 mg by mouth once daily. From Dr. Mcfarlane allopurinol (ZYLOPRIM) 300 mg tablet Take 1 tablet by mouth once daily. amLODIPine (NORVASC) 5 mg tablet Take 1 tablet by mouth once daily. metroNIDAZOLE 0.75 % cream apply to rosacea twice/day ZINC ACETATE ORAL Take by mouth. Unsure of dose Lactobacillus acidophilus (PROBIOTIC ORAL) Take by mouth. Unsure of dose doxazosin mesylate (DOXAZOSIN ORAL) Take 2 mg by mouth once daily. fish,bora,flax oils-om3,6,9no1 (OMEGA 3-6-9) 1,200 mg cap Take 1,200 mg by mouth. calcium carbonate/vitamin D3 (CALCIUM 600 + D,3, ORAL) Take 600 mg by mouth. BEE POLLEN ORAL Take by mouth. ASPIRIN 81 MG TAB Take one(1) tablet daily. GLUCOSAMINE 1500 COMPLEX 500 MG-400 MG CAP Take one(1) tablet daily. FAMILY HISTORY Problem Relation Age of Onset Arthritis Mother Hypertension Father Diabetes Brother (more content not included)... [facility] 08-06-2023 History of Present illness Narrative CC: Patient presents with: Cough: Chest congestion x4 days, wheezing HPI: Igor Cronin is a 83 year old male who presents to the office with complaint of chest congestion, head congestion, and cough, nonproductive for a few days. Symptoms are staying the same. Associated symptoms includes cough. Denies fever, nausea, vomiting , and diarrhea. Treatments tried include nothing so far. with no relief of symptoms. Sick contacts: unknown. History of asthma, frequent episodes of bronchitis, chronic bronchitis, bronchiectasis or COPD: No Smoker: No Seasonal/environmental allergies: No The ROS is otherwise negative. The patient's pmh, medications, allergies, and past visits are reviewed. PHYSICAL EXAM: BP 178/71 Pulse 71 Temp 36.6 C (97.8 F) Resp 20 Wt 77.2 kg (170 lb 3.2 oz) SpO2 95% BMI 28.32 kg/m General appearance: alert, cooperative, pleasant, in no acute distress Head: Normocephalic Eyes: EOM's intact, conjunctiva pink and moist, no icterus, sclera white, non-injected Ears: Right ear: External ear/canal- Normal, TM - clear with good landmarks. Left ear: External ear/canal- Normal, TM - clear with good landmarks Oropharynx:moist without lesions, No erythema, exudates or tonsillar hypertrophy. Heart: Negative. RRR without obvious murmur, gallop, or rubs. No ectopy. Lungs: clear to auscultation, without rales or wheeze, good air exchange PAST MEDICAL HISTORY Diagnosis Date Advance directive discussed with patient 09/20/2022 Discussed 09/2022: Patient to bring in copies ASHD (arteriosclerotic heart disease) Benign non-nodular prostatic hyperplasia with lower urinary tract symptoms 11/06/2015 Chronic anticoagulation 03/08/2015 Diverticulosis of colon (without mention of hemorrhage) Elevated hemoglobin A1c 09/17/2019 Elevated PSA 02/21/2022 Encounter for Medicare annual wellness exam 08/23/2021 Medical B eligibility date 04/12/2005 Date of last exam 08/23/2021 Essential hypertension, benign Gout, unspecified Hand arthritis 03/21/2023 Trial of Voltaren Gel 03/2023 History of COVID-19 08/28/202208/2022 History of stroke 09/17/2019 Hyperlipidemia, mixed 09/29/2017 Internal hemorrhoids without mention of complication Living will in place 09/20/2022 DPA: Sona () Medicare annual wellness visit, subsequent 08/23/2021 Medical B eligibility date 04/12/2005 Date of last exam 09/20/2022 Nonrheumatic aortic valve insufficiency 09/20/2022 Mild-mod on US 10/2021 Paroxysmal atrial fibrillation (HCC) 03/08/2015 Persistent proteinuria 09/17/2021 Consult to nephrology S/P CABG x 5 03/08/2015 Thrombocytopenia (HCC) 08/24/2021 130s- monitor Umbilical hernia 10/29/2012 Venous insufficiency of right leg 03/31/2019 Vertebral artery disease (HCC) 09/17/2019 PAST SURGICAL HISTORY Procedure Laterality Date 2D ECHO (EXEP) 10/25/2021 EF=65%, 1-2+ AI COLONOSCOPY FLX DX W/COLLJ SPEC WHEN PFRMD 12/03/2007 EXPLOR HEART SURG WND W CP BYPASS 02/17/2015 bypass x 5/ [facility] LEFT HEART CATH 02/13/2015 [facility] - see scanned documents RPR 1ST INGUN HRNA AGE 5 YRS/> REDUCIBLE Hernia repair, inguinal RPR UMBILICAL HERNIA < 5 YRS REDUCIBLE Hernia repair, umbilical SKIN BX, 1 LESION Right 11/22/2016 Shave bx right posterior shoulder WRIST SURGERY HX 2014 ALLERGIES Sulfa (Sulfonamide Antibiotics) and Benazepril MEDICATIONS predniSONE (DELTASONE) 20 mg tablet Take 1 tablet by mouth once daily for 5 days. fluticasone (FLONASE) 50 mcg/actuation nasal spray Use 2 Sprays in each nostril once daily. Rinse mouth after use. clopidogrel (PLAVIX) 75 mg tablet Take 1 tablet by mouth once daily. rosuvastatin (CRESTOR) 40 mg tablet Take 1 tablet by mouth once daily. Take one tablet daily diclofenac (VOLTAREN ARTHRITIS PAIN) 1 % topical gel Apply 2 g to affected area four times daily. Back of hands hydroCHLOROthiazide (HYDRODIURIL, ESIDRIX) 25 mg tablet Take 12.5 mg by mouth once daily. From Dr. Mcfarlane allopurinol (ZYLOPRIM) 300 mg tablet Take 1 tablet by mouth once daily. amLODIPine (NORVASC) 5 mg tablet Take 1 tablet by mouth once daily. metroNIDAZOLE 0.75 % cream apply to rosacea twice/day ZINC ACETATE ORAL Take by mouth. Unsure of dose Lactobacillus acidophilus (PROBIOTIC ORAL) Take by mouth. Unsure of dose doxazosin mesylate (DOXAZOSIN ORAL) Take 2 mg by mouth once daily. fish,bora,flax oils-om3,6,9no1 (OMEGA 3-6-9) 1,200 mg cap Take 1,200 mg by mouth. calcium carbonate/vitamin D3 (CALCIUM 600 + D,3, ORAL) Take 600 mg by mouth. BEE POLLEN ORAL Take by mouth. ASPIRIN 81 MG TAB Take one(1) tablet daily. GLUCOSAMINE 1500 COMPLEX 500 MG-400 MG CAP Take one(1) tablet daily. FAMILY HISTORY Problem Relation Age of Onset Arthritis Mother Hypertension Father Diabetes Brother Diabetes Brother Stroke Brother Hypertension Sister Hypertension Sister Social History Tobacco Use Smoking status: Never Smokeless tobacco: Never Vaping Use Vaping Use: Never used Substance Use Topics Alcohol use: No Drug use: No ASSESSMENT/PLAN: 1. URI, acute - ICD9: 465.9, ICD10: J06.9 - COVID & INFLUENZA A/B & RSV NAAT, ROUTINE - PREDNISONE 20 MG TABLET Prescription instructions reviewed with patient as applicable. Potential red flag symptoms discussed with the patient. Reviewed appropriate action plan to take if red flag symptoms occur. Patient agreeable to treatment plan. Shania Harris APRN.BRENDAN documented in this encounter [facility] 08-01-2023 Note HNO ID: [id number] Author: Velma De La Rosa Jr., MD Service: ? Author Type: Physician Type: Progress Notes Filed: 08/01/2023 12:24 PM Note Text: ESTABLISHED PATIENT VISIT CHIEF COMPLAINT: Follow Up HISTORY OF PRESENT ILLNESS: Igor Cronin is a 83 year old male, BMI 27.62 kg/m2 with a PMH significant for and per last office visit of 03/18/22: 1. VBI (vertebrobasilar insufficiency) - ICD9: 435.3, ICD10: G45.0 (primary diagnosis) 2. Intracranial atherosclerosis - ICD9: 437.0, ICD10: I67.2 3. 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 However, compensating by means of patent communication arteries as well as collaterals. Anterior circulation patent and stable as above per rad report. Images reviewed with patient during this visit. At this time, given non focal neuro exam and no new complaints, will continue treatment as before including: DAPT with ASA 81mg daily and Plavix 75mg daily, Crestor 40mg daily and BP control with goal sys of 140-150 to prevent possible hypoperfusion. Lipids well controlled but will need follow up with PCP in the future. Encouraged exercise. Discussed with pt stroke risks and precautions and need to report to ER immediately (or call 911) for stroke like symptoms. Only confirmation needed is why anticoagulation was d/c'd with reported history of parox afib. Will attempt to clarify with Dr. Box. Will consider repeat of vascular imaging at time of next visit or sooner if symptomatic. Patient reports doing really good. BP elevated today, and will recheck before leaving office today. At home, BP runs consistently at 144/66. Still taking ASA and Plavix with no complication. Also on Crestor. Total Cholesterol, Nonfasting Date Value Ref Range Status 09/17/2022 90 <200 mg/dL Final Comment: <200 mg/dL, Desirable 200-239 mg/dL, Borderline high >239 mg/dL, High HDL Cholesterol, Nonfasting Date Value Ref Range Status 09/17/2022 44 >39 mg/dL Final Comment: 40-59 mg/dL, Acceptable >59 mg/dL, High: Negative risk factor for coronary heart disease <40 mg/dL, Low: Positive risk factor for coronary heart disease LDL Cholesterol, Nonfasting Date Value Ref Range Status 09/17/2022 29 <100 mg/dL Final Comment: <100 mg/dL, Optimal 100-129 mg/dL, Near optimal/above optimal 130-159 mg/dL, Borderline high 160-189 mg/dL, High >189 mg/dL, Very high Secondary prevention optimal LDL Cholesterol levels are recommended to be < 70 mg/dL Triglycerides, Nonfasting Date Value Ref Range Status 09/17/2022 85 <150 mg/dL Final Comment: <150 mg/dL, Normal 150-199 mg/dL, Borderline high 200-499 mg/dL, High >499 mg/dL, Very high Pt states undergoing CT and ECG for cardiac murmur. No new stroke symptoms. No dizziness/vertigo, visual changes, headache, loc, lightheadedness, focal weakness. REVIEW OF SYSTEMS GENERAL:No weight loss, malaise or fevers. HEENT:Negative for frequent or significant headaches, No changes in hearing or vision, no nose bleeds or other nasal problems RESPIRATORY: Negative for cough, wheezing or shortness of breath. CARDIOVASCULAR: Negative for chest pain, or palpitations. GASTROINTESTINAL: Negative for abdominal discomfort, blood in stools or black stools or change in bowel habits GENITOURINARY: No history of dysuria, frequency or incontinence MUSCULOSKELETAL: Negative for joint pain or swelling, back pain or muscle pain. NEUROLOGIC:Negative for focal numbness or weakness, headaches and dizziness or syncope, vision changes, speech/languag changes - EXCEPT that as per HPI above. SKIN:Negative for lesions, rash, and itching. HEMATOLOGIC/LYMPHATIC/IMMUNOLOGIC :Negative for prolonged bleeding, bruising easily or swollen nodes. ENDOCRINE: Negative for cold or heat intolerance, polyuria, polydipsia and goiter. The remainder of the ROS was reviewed and is negative. LAB/IMAGING: Those performed since patient's last visit have been reviewed. WBC (k/uL) Date Value 09/17/2022 6.14 RBC (m/uL) Date Value 09/17/2022 4.52 Hemoglobin (g/dL) Date Value 09/17/2022 14.4 Hematocrit (%) Date Value 09/17/2022 43.1 MCV (fL) Date Value 09/17/2022 95.4 MCH (pg) Date Value 09/17/2022 31.9 MCHC (g/dL) Date Value 09/17/2022 33.4 RDW-CV (%) Date Value 09/17/2022 15.3 (H) Platelet Count (k/uL) Date Value 09/17/2022 132 (L) MPV (fL) Date Value 09/17/2022 10.3 Glucose (mg/dL) Date Value 09/17/2022 86 BUN (mg/dL) Date Value 09/17/2022 23 Creatinine (mg/dL) Date Value 09/17/2022 1.03 Sodium (mmol/L) Date Value 09/17/2022 142 Potassium (mmol/L) Date Value 09/17/2022 3.9 Chloride (mmol/L) Date Value 09/17/2022 105 CO2 (mmol/L) Date Value 09/17/2022 28 Protein, Total (g/dL) Date Value 09/17/2022 6.6 Albumin (g/dL) Date Value 09/17/2022 4.1 Calcium, Total (more content not included)... [facility] 08-01-2023 Note HNO ID: [id number] Author: Velma De La Rosa Jr., MD Service: ? Author Type: Physician Type: Progress Notes Filed: 08/01/2023 12:24 PM Note Text: There is no data to display for this encounter [facility] 08-01-2023 Note HNO ID: [id number] Author: Evelin Nava LPN Service: ? Author Type: LICENSED NURSE Type: Progress Notes Filed: 08/01/2023 12:24 PM Note Text: There is no data to display for this encounter [facility] 08-01-2023 History of Present illness Narrative ESTABLISHED PATIENT VISIT CHIEF COMPLAINT: Follow Up HISTORY OF PRESENT ILLNESS: Igor Cronin is a 83 year old male, BMI 27.62 kg/m2 with a PMH significant for and per last office visit of 03/18/22: 1. VBI (vertebrobasilar insufficiency) - ICD9: 435.3, ICD10: G45.0 (primary diagnosis) 2. Intracranial atherosclerosis - ICD9: 437.0, ICD10: I67.2 3. 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 However, compensating by means of patent communication arteries as well as collaterals. Anterior circulation patent and stable as above per rad report. Images reviewed with patient during this visit. At this time, given non focal neuro exam and no new complaints, will continue treatment as before including: DAPT with ASA 81mg daily and Plavix 75mg daily, Crestor 40mg daily and BP control with goal sys of 140-150 to prevent possible hypoperfusion. Lipids well controlled but will need follow up with PCP in the future. Encouraged exercise. Discussed with pt stroke risks and precautions and need to report to ER immediately (or call 911) for stroke like symptoms. Only confirmation needed is why anticoagulation was d/c'd with reported history of parox afib. Will attempt to clarify with Dr. Box. Will consider repeat of vascular imaging at time of next visit or sooner if symptomatic. Patient reports doing really good. BP elevated today, and will recheck before leaving office today. At home, BP runs consistently at 144/66. Still taking ASA and Plavix with no complication. Also on Crestor. Total Cholesterol, Nonfasting Date Value Ref Range Status 09/17/2022 90 <200 mg/dL Final Comment: <200 mg/dL, Desirable 200-239 mg/dL, Borderline high >239 mg/dL, High HDL Cholesterol, Nonfasting Date Value Ref Range Status 09/17/2022 44 >39 mg/dL Final Comment: 40-59 mg/dL, Acceptable >59 mg/dL, High: Negative risk factor for coronary heart disease <40 mg/dL, Low: Positive risk factor for coronary heart disease LDL Cholesterol, Nonfasting Date Value Ref Range Status 09/17/2022 29 <100 mg/dL Final Comment: <100 mg/dL, Optimal 100-129 mg/dL, Near optimal/above optimal 130-159 mg/dL, Borderline high 160-189 mg/dL, High >189 mg/dL, Very high Secondary prevention optimal LDL Cholesterol levels are recommended to be < 70 mg/dL Triglycerides, Nonfasting Date Value Ref Range Status 09/17/2022 85 <150 mg/dL Final Comment: <150 mg/dL, Normal 150-199 mg/dL, Borderline high 200-499 mg/dL, High >499 mg/dL, Very high Pt states undergoing CT and ECG for cardiac murmur. No new stroke symptoms. No dizziness/vertigo, visual changes, headache, loc, lightheadedness, focal weakness. REVIEW OF SYSTEMS GENERAL:No weight loss, malaise or fevers. HEENT:Negative for frequent or significant headaches, No changes in hearing or vision, no nose bleeds or other nasal problems RESPIRATORY: Negative for cough, wheezing or shortness of breath. CARDIOVASCULAR: Negative for chest pain, or palpitations. GASTROINTESTINAL: Negative for abdominal discomfort, blood in stools or black stools or change in bowel habits GENITOURINARY: No history of dysuria, frequency or incontinence MUSCULOSKELETAL: Negative for joint pain or swelling, back pain or muscle pain. NEUROLOGIC:Negative for focal numbness or weakness, headaches and dizziness or syncope, vision changes, speech/languag changes - EXCEPT that as per HPI above. SKIN:Negative for lesions, rash, and itching. HEMATOLOGIC/LYMPHATIC/IMMUNOLOGIC :Negative for prolonged bleeding, bruising easily or swollen nodes. ENDOCRINE: Negative for cold or heat intolerance, polyuria, polydipsia and goiter. The remainder of the ROS was reviewed and is negative. LAB/IMAGING: Those performed since patient's last visit have been reviewed. WBC (k/uL) Date Value 09/17/2022 6.14 RBC (m/uL) Date Value 09/17/2022 4.52 Hemoglobin (g/dL) Date Value 09/17/2022 14.4 Hematocrit (%) Date Value 09/17/2022 43.1 MCV (fL) Date Value 09/17/2022 95.4 MCH (pg) Date Value 09/17/2022 31.9 MCHC (g/dL) Date Value 09/17/2022 33.4 RDW-CV (%) Date Value 09/17/2022 15.3 (H) Platelet Count (k/uL) Date Value 09/17/2022 132 (L) MPV (fL) Date Value 09/17/2022 10.3 Glucose (mg/dL) Date Value 09/17/2022 86 BUN (mg/dL) Date Value 09/17/2022 23 Creatinine (mg/dL) Date Value 09/17/2022 1.03 Sodium (mmol/L) Date Value 09/17/2022 142 Potassium (mmol/L) Date Value 09/17/2022 3.9 Chloride (mmol/L) Date Value 09/17/2022 105 CO2 (mmol/L) Date Value 09/17/2022 28 Protein, Total (g/dL) Date Value 09/17/2022 6.6 Albumin (g/dL) Date Value 09/17/2022 4.1 Calcium, Total (mg/dL) Date Value 09/17/2022 8.9 Alkaline Phosphatase (U/L) Date Value 09/17/2022 59 Bilirubin, Total (mg/dL) Date Value 09/17/2022 0.5 AST (U/L) Date Value 09/17/2022 30 ALT (U/L) Date Value 09/17/2022 25 MEDICATIONS: fluticasone (FLONASE) 50 mcg/actuation nasal spray Use 2 Sprays in each nostril once daily. Rinse mouth after use. clopidogrel (PLAVIX) 75 mg tablet Take 1 tablet by mouth once daily. rosuvastatin (CRESTOR) 40 mg tablet Take 1 tablet by mouth once daily. Take one tablet daily diclofenac (VOLTAREN ARTHRITIS PAIN) 1 % topical gel Apply 2 g to affected area four times daily. Back of hands hydroCHLOROthiazide (HYDRODIURIL, ESIDRIX) 25 mg tablet Take 12.5 mg by mouth once daily. From Dr. Mcfarlane allopurinol (ZYLOPRIM) 300 mg tablet Take 1 tablet by mouth once daily. amLODIPine (NORVASC) 5 mg tablet Take 1 tablet by mouth once daily. metroNIDAZOLE 0.75 % cream apply to rosacea twice/day ZINC ACETATE ORAL Take by mouth. Unsure of dose Lactobacillus acidophilus (PROBIOTIC ORAL) Take by mouth. Unsure of dose doxazosin mesylate (DOXAZOSIN ORAL) Take 2 mg by mouth once daily. fish,bora,flax oils-om3,6,9no1 (OMEGA 3-6-9) 1,200 mg cap Take 1,200 mg by mouth. calcium carbonate/vitamin D3 (CALCIUM 600 + D,3, ORAL) Take 600 mg by mouth. BEE POLLEN ORAL Take by mouth. ASPIRIN 81 MG TAB Take one(1) tablet daily. GLUCOSAMINE 1500 COMPLEX 500 MG-400 MG CAP Take one(1) tablet daily. HISTORIES PAST MEDICAL HISTORY Diagnosis Date Advance directive discussed with patient 09/20/2022 Discussed 09/2022: Patient to bring in copies ASHD (arteriosclerotic heart disease) Benign non-nodular prostatic hyperplasia with lower urinary tract symptoms 11/06/2015 Chronic anticoagulation 03/08/2015 Diverticulosis of colon (without mention of hemorrhage) Elevated hemoglobin A1c 09/17/2019 Elevated PSA 02/21/2022 Encounter for Medicare annual wellness exam 08/23/2021 Medical B eligibility date 04/12/2005 Date of last exam 08/23/2021 Essential hypertension, benign Gout, unspecified Hand arthritis 03/21/2023 Trial of Voltaren Gel 03/2023 History of COVID-19 08/28/202208/2022 History of stroke 09/17/2019 Hyperlipidemia, mixed 09/29/2017 Internal hemorrhoids without mention of complication Living will in place 09/20/2022 DPA: Sona () Medicare annual wellness visit, subsequent 08/23/2021 Medical B eligibility date 04/12/2005 Date of last exam 09/20/2022 Nonrheumatic aortic valve insufficiency 09/20/2022 Mild-mod on US 10/2021 Paroxysmal atrial fibrillation (HCC) 03/08/2015 Persistent proteinuria 09/17/2021 Consult to nephrology S/P CABG x 5 03/08/2015 Thrombocytopenia (HCC) 08/24/2021 130s- monitor Umbilical hernia 10/29/2012 Venous insufficiency of right leg 03/31/2019 Vertebral artery disease (HCC) 09/17/2019 FAMILY HISTORY Problem Relation Age of Onset Arthritis Mother Hypertension Father Diabetes Brother Diabetes Brother Stroke Brother Hypertension Sister Hypertension Sister SOCIAL HISTORY Social History Tobacco Use Smoking status: Never Smokeless tobacco: Never Vaping Use Vaping Use: Never used Substance Use Topics Alcohol use: No Drug use: No PHYSICAL EXAMINATION BP 169/70 Pulse 67 Resp 18 Wt 75.3 kg (166 lb) SpO2 97% BMI 27.62 kg/m REPEAT BP 153/66 GENERAL EXAM: General appearance: NAD, pleasant. HEENT: NC/AT, nasal congestion absent, no oral lesions, membranes moist. NECK: No masses, supple. Lungs: CTA bilaterally. CV: RRR nl S1, S2 Extr: No cyanosis, clubbing or edema. Skin: Cool to touch. NEUROLOGICAL EXAM: General: Awake, alert, oriented x3 (person,place,time), speech fluent, no dysarthria; comprehension, naming, repetition intact. Fund of knowledge grossly normal. CN: PERRL, fundi with no evidence of papilledema, EOMI and without nystagmus, VFF to confrontation, facial sensation and strength are normal and symmetric, hearing is intact to finger rub bilaterally, palate and tongue movements are intact and symmetric. SCM and trapezius strength normal. Motor: Normal tone, bulk and strength (5/5) bilaterally (throughout extremities x4). Coordination: FNF, ANGELA, HTS intact. No tremors. Sensation: Light touch, vibration, temperature intact throughout. No evidence of neglect. Gait: Stable with normal stride and arm swing. Assessment and Plan: ASSESSMENT/PLAN: 1. VBI (vertebrobasilar insufficiency) - ICD9: 435.3, ICD10: G45.0 (primary diagnosis) 2. Intracranial atherosclerosis - ICD9: 437.0, ICD10: I67.2 3. 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 Etiology remains uncertain. Patient compensation by means of patent communicating arteries and collaterals. Anterior circulation patent in 2020. No new focal neuro deficits, and overall pt doing well. D/w pt, and at this time will proceed with carotid artery ultrasound to screen for development of anterior circulation disease that might warrant more aggressive therapies (d/w pt repeating MRA but pt prefers to complete carotids knowing limitations)/ Otherwise, plan unchanged: DAPT with ASA 81mg daily and Plavix 75mg daily, Crestor 40mg daily and BP control with goal sys of 140-150 to prevent possible hypoperfusion. Lipids well controlled but will need follow up with PCP in the future. Encouraged exercise. Discussed with pt stroke risks and precautions and need to report to ER immediately (or call 911) for stroke like symptoms. Follow up 1 year or sooner prn or if abnormal finding on carotid ultrasounds. I spent a total of 26 minutes on the date of the service which included preparing to see the patient, [id number] patient care, completing clinical documentation, obtaining and/or reviewing separately obtained history, performing a medically appropriate examination, counseling and educating the patient/family/caregiver, ordering medications, tests, or procedures, and communicating results to the patient/family/caregiver. There is no data to display for this encounter There is no data to display for this encounter documented in this encounter [facility] 07-10-2023 Note HNO ID: [id number] Author: Annemarie Clifton LPN Service: ? Author Type: ? Type: Progress Notes Filed: 07/10/2023 4:10 PM Note Text: Scan on 07/10/2023 3:48 PM by ProviderOfelia PA-C: Consultation - Cardiology [facility] 07-10-2023 History of Present illness Narrative Scan on 07/10/2023 3:48 PM by ProviderOfelia PA-C: Consultation - Cardiology documented in this encounter [facility] 06-14-2023 Note HNO ID: [id number] Author: Caden Montenegro MD Service: ? Author Type: Physician Type: Progress Notes Filed: 06/14/2023 11:26 AM Note Text: Patient presents with: Nose Problem: L nostril clogged, unsure if sinus problem x1 week HPI: Feeling L>R nasal passage congestion for years, worse for 1 week. Hx of nasal fracture a few years ago. Hx of ragweed allergies. Seems worse after mowing. Positive symptoms: Nasal Congestion, sleep disturbance Negative symptoms: Rhinorrhea, Fever, Headache, OTC: saline rinse, afrin, claritin PAST MEDICAL HISTORY Diagnosis Date Advance directive discussed with patient 09/20/2022 Discussed 09/2022: Patient to bring in copies ASHD (arteriosclerotic heart disease) Benign non-nodular prostatic hyperplasia with lower urinary tract symptoms 11/06/2015 Chronic anticoagulation 03/08/2015 Diverticulosis of colon (without mention of hemorrhage) Elevated hemoglobin A1c 09/17/2019 Elevated PSA 02/21/2022 Encounter for Medicare annual wellness exam 08/23/2021 Medical B eligibility date 04/12/2005 Date of last exam 08/23/2021 Essential hypertension, benign Gout, unspecified Hand arthritis 03/21/2023 Trial of Voltaren Gel 03/2023 History of COVID-19 08/28/202208/2022 History of stroke 09/17/2019 Hyperlipidemia, mixed 09/29/2017 Internal hemorrhoids without mention of complication Living will in place 09/20/2022 DPA: Sona () Medicare annual wellness visit, subsequent 08/23/2021 Medical B eligibility date 04/12/2005 Date of last exam 09/20/2022 Nonrheumatic aortic valve insufficiency 09/20/2022 Mild-mod on US 10/2021 Paroxysmal atrial fibrillation (HCC) 03/08/2015 Persistent proteinuria 09/17/2021 Consult to nephrology S/P CABG x 5 03/08/2015 Thrombocytopenia (HCC) 08/24/2021 130s- monitor Umbilical hernia 10/29/2012 Venous insufficiency of right leg 03/31/2019 Vertebral artery disease (HCC) 09/17/2019 MEDICATIONS: Current Outpatient Medications Medication Sig clopidogrel (PLAVIX) 75 mg tablet Take 1 tablet by mouth once daily. rosuvastatin (CRESTOR) 40 mg tablet Take 1 tablet by mouth once daily. Take one tablet daily diclofenac (VOLTAREN ARTHRITIS PAIN) 1 % topical gel Apply 2 g to affected area four times daily. Back of hands hydroCHLOROthiazide (HYDRODIURIL, ESIDRIX) 25 mg tablet Take 12.5 mg by mouth once daily. From Dr. Mcfarlane allopurinol (ZYLOPRIM) 300 mg tablet Take 1 tablet by mouth once daily. amLODIPine (NORVASC) 5 mg tablet Take 1 tablet by mouth once daily. metroNIDAZOLE 0.75 % cream apply to rosacea twice/day ZINC ACETATE ORAL Take by mouth. Unsure of dose Lactobacillus acidophilus (PROBIOTIC ORAL) Take by mouth. Unsure of dose doxazosin mesylate (DOXAZOSIN ORAL) Take 2 mg by mouth once daily. fish,bora,flax oils-om3,6,9no1 (OMEGA 3-6-9) 1,200 mg cap Take 1,200 mg by mouth. calcium carbonate/vitamin D3 (CALCIUM 600 + D,3, ORAL) Take 600 mg by mouth. BEE POLLEN ORAL Take by mouth. ASPIRIN 81 MG TAB Take one(1) tablet daily. GLUCOSAMINE 1500 COMPLEX 500 MG-400 MG CAP Take one(1) tablet daily. No current facility-administered medications for this visit. ALLERGIES: ALLERGIES Allergen Reactions Sulfa (Sulfonamide * Itching Benazepril Cough VITALS: BP 176/73 Pulse 69 Temp 36.9 ?C (98.4 ?F) Resp 18 Wt 75.9 kg (167 lb 6.4 oz) SpO2 96% BMI 27.86 kg/m? PHYSICAL EXAM: GEN: Pleasant, in no acute distress. HEENT: PERRL, EOMI, conjunctiva clear Sinuses: non-tender frontal sinus, non-tender maxillary sinuses Nose: audible whistle from left nasal passage narrowing. Left septal deviation. Bilateral mild to moderate mucosal edema. No discharge. Throat: moist mucous membranes, no erythema, no exudate Neck: supple, no thyromegaly, no lymphadenopathy HEART: slow rate and regular rhythm, no murmurs LUNGS: clear to auscultation, no wheezes or crackles, no increased WOB ASSESSMENT/PLAN: 1. Nasal congestion - ICD9: 478.19, ICD10: R09.81 (primary diagnosis) 2. Seasonal allergies - ICD9: 477.9, ICD10: J30.2 Continue antihistamine. Add - FLUTICASONE PROPIONATE 50 MCG/ACTUATION NASAL SPRAY,SUSPENSION, may use twice a day for 1 week then daily during allergy season. ENT if not improving. Caden Montenegro MD [facility] 06-14-2023 History of Present illness Narrative Patient presents with: Nose Problem: L nostril clogged, unsure if sinus problem x1 week HPI: Feeling L>R nasal passage congestion for years, worse for 1 week. Hx of nasal fracture a few years ago. Hx of ragweed allergies. Seems worse after mowing. Positive symptoms: Nasal Congestion, sleep disturbance Negative symptoms: Rhinorrhea, Fever, Headache, OTC: saline rinse, afrin, claritin PAST MEDICAL HISTORY Diagnosis Date Advance directive discussed with patient 09/20/2022 Discussed 09/2022: Patient to bring in copies ASHD (arteriosclerotic heart disease) Benign non-nodular prostatic hyperplasia with lower urinary tract symptoms 11/06/2015 Chronic anticoagulation 03/08/2015 Diverticulosis of colon (without mention of hemorrhage) Elevated hemoglobin A1c 09/17/2019 Elevated PSA 02/21/2022 Encounter for Medicare annual wellness exam 08/23/2021 Medical B eligibility date 04/12/2005 Date of last exam 08/23/2021 Essential hypertension, benign Gout, unspecified Hand arthritis 03/21/2023 Trial of Voltaren Gel 03/2023 History of COVID-19 08/28/202208/2022 History of stroke 09/17/2019 Hyperlipidemia, mixed 09/29/2017 Internal hemorrhoids without mention of complication Living will in place 09/20/2022 DPA: Sona () Medicare annual wellness visit, subsequent 08/23/2021 Medical B eligibility date 04/12/2005 Date of last exam 09/20/2022 Nonrheumatic aortic valve insufficiency 09/20/2022 Mild-mod on US 10/2021 Paroxysmal atrial fibrillation ([facility]) 03/08/2015 Persistent proteinuria 09/17/2021 Consult to nephrology S/P CABG x 5 03/08/2015 Thrombocytopenia ([facility]) 08/24/2021 130s- monitor Umbilical hernia 10/29/2012 Venous insufficiency of right leg 03/31/2019 Vertebral artery disease ([facility]) 09/17/2019 MEDICATIONS: Current Outpatient Medications Medication Sig clopidogrel (PLAVIX) 75 mg tablet Take 1 tablet by mouth once daily. rosuvastatin (CRESTOR) 40 mg tablet Take 1 tablet by mouth once daily. Take one tablet daily diclofenac (VOLTAREN ARTHRITIS PAIN) 1 % topical gel Apply 2 g to affected area four times daily. Back of hands hydroCHLOROthiazide (HYDRODIURIL, ESIDRIX) 25 mg tablet Take 12.5 mg by mouth once daily. From Dr. Mcfarlane allopurinol (ZYLOPRIM) 300 mg tablet Take 1 tablet by mouth once daily. amLODIPine (NORVASC) 5 mg tablet Take 1 tablet by mouth once daily. metroNIDAZOLE 0.75 % cream apply to rosacea twice/day ZINC ACETATE ORAL Take by mouth. Unsure of dose Lactobacillus acidophilus (PROBIOTIC ORAL) Take by mouth. Unsure of dose doxazosin mesylate (DOXAZOSIN ORAL) Take 2 mg by mouth once daily. fish,bora,flax oils-om3,6,9no1 (OMEGA 3-6-9) 1,200 mg cap Take 1,200 mg by mouth. calcium carbonate/vitamin D3 (CALCIUM 600 + D,3, ORAL) Take 600 mg by mouth. BEE POLLEN ORAL Take by mouth. ASPIRIN 81 MG TAB Take one(1) tablet daily. GLUCOSAMINE 1500 COMPLEX 500 MG-400 MG CAP Take one(1) tablet daily. No current facility-administered medications for this visit. ALLERGIES: ALLERGIES Allergen Reactions Sulfa (Sulfonamide * Itching Benazepril Cough VITALS: BP 176/73 Pulse 69 Temp 36.9 C (98.4 F) Resp 18 Wt 75.9 kg (167 lb 6.4 oz) SpO2 96% BMI 27.86 kg/m PHYSICAL EXAM: GEN: Pleasant, in no acute distress. HEENT: PERRL, EOMI, conjunctiva clear Sinuses: non-tender frontal sinus, non-tender maxillary sinuses Nose: audible whistle from left nasal passage narrowing. Left septal deviation. Bilateral mild to moderate mucosal edema. No discharge. Throat: moist mucous membranes, no erythema, no exudate Neck: supple, no thyromegaly, no lymphadenopathy HEART: slow rate and regular rhythm, no murmurs LUNGS: clear to auscultation, no wheezes or crackles, no increased WOB ASSESSMENT/PLAN: 1. Nasal congestion - ICD9: 478.19, ICD10: R09.81 (primary diagnosis) 2. Seasonal allergies - ICD9: 477.9, ICD10: J30.2 Continue antihistamine. Add - FLUTICASONE PROPIONATE 50 MCG/ACTUATION NASAL SPRAY,SUSPENSION, may use twice a day for 1 week then daily during allergy season. ENT if not improving. Caden Montenegro MD documented in this encounter [facility] 03-21-2023 Note HNO ID: [id number] Author: Harrison Castellano MD Service: ? Author Type: Physician Type: Progress Notes Filed: 03/21/2023 10:43 AM Note Text: Chief Complaint Patient presents with: F/U 6 months HPI Igor Cronin is a 82 year old male who presents here today for 6 month follow up. Office visit 6 month follow up Patient with Hx of CAD, HTN, hyperlipidemia, elevated A1c, A. Fib, thrombocytopenia, gout, venous insufficiency, BPH, proteinuria as well as those reviewed and addressed below and in ROS. Patient has been doing well. No new issues or concerns. Office visit - medicare wellness - 09/2022 Patient with Hx of CAD, HTN, hyperlipidemia, elevated A1c, A. Fib, thrombocytopenia, gout, venous insufficiency, BPH, proteinuria as well as those reviewed and addressed below and in ROS. Just got over COVID a several weeks back. Was treated for it. No residual issues. Has been doing good in the past few weeks. Past medical history, appointments, medications, allergies reviewed. Previous Medical History PAST MEDICAL HISTORY Diagnosis Date Advance directive discussed with patient 09/20/2022 Discussed 09/2022: Patient to bring in copies ASHD (arteriosclerotic heart disease) Benign non-nodular prostatic hyperplasia with lower urinary tract symptoms 11/06/2015 Chronic anticoagulation 03/08/2015 Diverticulosis of colon (without mention of hemorrhage) Elevated hemoglobin A1c 09/17/2019 Elevated PSA 02/21/2022 Encounter for Medicare annual wellness exam 08/23/2021 Medical B eligibility date 04/12/2005 Date of last exam 08/23/2021 Essential hypertension, benign Gout, unspecified History of COVID-19 08/28/202208/2022 History of stroke 09/17/2019 Hyperlipidemia, mixed 09/29/2017 Internal hemorrhoids without mention of complication Living will in place 09/20/2022 DPA: Sona () Medicare annual wellness visit, subsequent 08/23/2021 Medical B eligibility date 04/12/2005 Date of last exam 09/20/2022 Nonrheumatic aortic valve insufficiency 09/20/2022 Mild-mod on US 10/2021 Osteoarthrosis, unspecified whether generalized or localized, unspecified site Paroxysmal atrial fibrillation (HCC) 03/08/2015 Persistent proteinuria 09/17/2021 Consult to nephrology S/P CABG x 5 03/08/2015 Thrombocytopenia (HCC) 08/24/2021 130s- monitor Umbilical hernia 10/29/2012 Venous insufficiency of right leg 03/31/2019 Vertebral artery disease (HCC) 09/17/2019 Previous Surgical History PAST SURGICAL HISTORY Procedure Laterality Date 2D ECHO (EXEP) 10/25/2021 EF=65%, 1-2+ AI COLONOSCOPY FLX DX W/COLLJ SPEC WHEN PFRMD 12/03/2007 EXPLOR HEART SURG WND W CP BYPASS 02/17/2015 bypass x 5/ [facility] LEFT HEART CATH 02/13/2015 [facility] - see scanned documents RPR 1ST INGUN HRNA AGE 5 YRS/> REDUCIBLE Hernia repair, inguinal RPR UMBILICAL HERNIA < 5 YRS REDUCIBLE Hernia repair, umbilical SKIN BX, 1 LESION Right 11/22/2016 Shave bx right posterior shoulder WRIST SURGERY HX 2014 Family History FAMILY HISTORY Problem Relation Age of Onset Arthritis Mother Hypertension Father Diabetes Brother Diabetes Brother Stroke Brother Hypertension Sister Hypertension Sister Patient Allergies ALLERGIES Allergen Reactions Sulfa (Sulfonamide * Itching Benazepril Cough Current Medications Current Outpatient Medications on File Prior to Visit Medication Sig hydroCHLOROthiazide (HYDRODIURIL, ESIDRIX) 25 mg tablet Take 25 mg by mouth once daily. From Dr. Mcfarlane clopidogrel (PLAVIX) 75 mg tablet Take 1 tablet by mouth once daily. rosuvastatin (CRESTOR) 40 mg tablet Take 1 tablet by mouth once daily. Take one tablet daily allopurinol (ZYLOPRIM) 300 mg tablet Take 1 tablet by mouth once daily. amLODIPine (NORVASC) 5 mg tablet Take 1 tablet by mouth once daily. metroNIDAZOLE 0.75 % cream apply to rosacea twice/day ZINC ACETATE ORAL Take by mouth. Unsure of dose Lactobacillus acidophilus (PROBIOTIC ORAL) Take by mouth. Unsure of dose doxazosin mesylate (DOXAZOSIN ORAL) Take 2 mg by mouth once daily. fish,bora,flax oils-om3,6,9no1 (OMEGA 3-6-9) 1,200 mg cap Take 1,200 mg by mouth. calcium carbonate/vitamin D3 (CALCIUM 600 + D,3, ORAL) Take 600 mg by mouth. BEE POLLEN ORAL Take by mouth. ASPIRIN 81 MG TAB Take one(1) tablet daily. GLUCOSAMINE 1500 COMPLEX 500 MG-400 MG CAP Take one(1) tablet daily. No current facility-administered medications on file prior to visit. Social History Social History Tobacco Use Smoking status: Never Smokeless tobacco: Never Vaping Use Vaping Use: Never used Substance Use Topics Alcohol use: No Drug use: No Review of Symptoms REVIEW OF SYSTEMS GENERAL: No weight loss, malaise or fevers NECK: Negative for lumps, goiter, pain and significant neck swelling RESPIRATORY: Negative for cough, hemoptysis, wheezing, COPD, dyspnea or shortness of breath CARDIOVASCULAR: Negative for chest pain, increased leg swelling, hypertensi (more content not included)... [facility] 01-09-2023 Note HNO ID: [id number] Author: Annemarie Clifton LPN Service: ? Author Type: ? Type: Progress Notes Filed: 01/09/2023 6:24 PM Note Text: Scan on 01/09/2023 5:32 PM by External Provider: Consultation - Cardiology Carolina Clifton LPN [facility] 01-09-2023 History of Present illness Narrative Scan on 01/09/2023 5:32 PM by External Provider: Consultation - Cardiology Carolina Clifton LPN documented in this encounter [facility] 01-07-2023 Note HNO ID: [id number] Author: Abdulkadir Watkins LPN Service: ? Author Type: ? Type: Progress Notes Filed: 01/07/2023 9:30 PM Note Text: View External Lab - Hematology [ID [id number]] Scan on 01/07/2023 11:45 AM by External Provider: Chemistry [facility] 01-07-2023 History of Present illness Narrative View External Lab - Hematology [ID [id number]] Scan on 01/07/2023 11:45 AM by External Provider: Chemistry documented in this encounter [facility] 08-30-2022 History of Present illness Narrative Patient presents with: Covid Follow Up SUBJECTIVE: This is a 82 year old that is here today for Above Complaints. Tested COVID-19 positive on 08/26/2022. Started on molnupiravir on 08/27/2022. Tolerating without side effects. Feeling improve. Symptoms include: Fever (?100.4F): No or Chills: No Cough: Yes- occasional Shortness of breath: No or Difficulty breathing: No Fatigue: No Muscle aches: No Headache: No New loss of smell or taste: No Sore throat: No Nasal congestion: No or Rhinorrhea: No Nausea: No or Vomiting: No Diarrhea: No Prescribed Augmentin in Urgent Care on 08/26/2022 for abnormal chest xray- see results below. Taking and tolerating without side effects. Overall feeling improved. IMPRESSION: 1. Stable elevation of the left hemidiaphragm with subjacent mild linear atelectasis and/or scarring. 2. Mild blunting of the posterior costophrenic sulci raises suspicion for trace pleural effusions. Residential Property Tax Appraiser: BARRY Transcribe Date/Time: Aug 26 2022 11:34A Dictated by : SARAH DAS MD This examination was interpreted and the report reviewed and electronically signed by: SARAH DAS MD on Aug 26 2022 11:39AM EST Results-Findings * * *Final Report* * * DATE OF EXAM: Aug 26 2022 11:31AM WOX [id number] - XR CHEST 2V FRONTAL/LAT / PROCEDURE REASON: Acute cough * * * * Physician Interpretation * * * * EXAMINATION: CHEST RADIOGRAPH (2 VIEW FRONTAL & LATERAL) CLINICAL HISTORY: Acute cough MQ: [id number] EXAM DATE/TIME: 08/26/2022 11:31 AM COMPARISON: Chest x-ray dated June 28, 2021 RESULT: Lines, tubes, and devices: None. Lungs and pleura: Stable elevation of the left hemidiaphragm with subjacent mild linear atelectasis and/or scarring. Mild blunting of the posterior costophrenic sulci raises suspicion for trace pleural effusions. Cardiomediastinal silhouette: Stable cardiomediastinal silhouette with postsurgical changes from median sternotomy. Bones and soft tissues: Mild degenerative changes. PAST MEDICAL HISTORY Diagnosis Date ASHD (arteriosclerotic heart disease) Benign non-nodular prostatic hyperplasia with lower urinary tract symptoms 11/06/2015 Chronic anticoagulation 03/08/2015 COVID-19 virus infection 08/28/202208/2022 Diverticulosis of colon (without mention of hemorrhage) Elevated hemoglobin A1c 09/17/2019 Elevated PSA 02/21/2022 Encounter for Medicare annual wellness exam 08/23/2021 Medical B eligibility date 04/12/2005 Date of last exam 08/23/2021 Essential hypertension, benign Gout, unspecified History of stroke 09/17/2019 Hyperlipidemia, mixed 09/29/2017 Internal hemorrhoids without mention of complication Osteoarthrosis, unspecified whether generalized or localized, unspecified site Paroxysmal atrial fibrillation (HCC) 03/08/2015 Persistent proteinuria 09/17/2021 Consult to nephrology S/P CABG x 5 03/08/2015 Thrombocytopenia (HCC) 08/24/2021 130s- monitor Umbilical hernia 10/29/2012 Umbilical hernia without mention of obstruction or gangrene Venous insufficiency of right leg 03/31/2019 Vertebral artery disease (HCC) 09/17/2019 ALLERGIES Sulfa (Sulfonamide Antibiotics) and Benazepril MEDICATIONS Current Outpatient Medications Medication Sig molnupiravir 200 mg capsule Take 4 capsules by mouth twice daily for 5 days. amoxicillin-clavulanic acid (AUGMENTIN) 875-125 mg per tablet Take 1 tablet by mouth every 12 hours for 7 days. allopurinol (ZYLOPRIM) 300 mg tablet Take 1 tablet by mouth once daily. amLODIPine (NORVASC) 5 mg tablet Take 1 tablet by mouth once daily. metroNIDAZOLE 0.75 % cream apply to rosacea twice/day ZINC ACETATE ORAL Take by mouth. Unsure of dose Lactobacillus acidophilus (PROBIOTIC ORAL) Take by mouth. Unsure of dose doxazosin mesylate (DOXAZOSIN ORAL) Take 2 mg by mouth once daily. rosuvastatin (CRESTOR) 40 mg tablet Take 1 tablet by mouth once daily. Take one tablet daily clopidogrel (PLAVIX) 75 mg tablet Take 1 tablet by mouth once daily. fish,bora,flax oils-om3,6,9no1 (OMEGA 3-6-9) 1,200 mg cap Take 1,200 mg by mouth. calcium carbonate/vitamin D3 (CALCIUM 600 + D,3, ORAL) Take 600 mg by mouth. BEE POLLEN ORAL Take by mouth. ASPIRIN 81 MG TAB Take one(1) tablet daily. GLUCOSAMINE 1500 COMPLEX 500 MG-400 MG CAP Take one(1) tablet daily. No current facility-administered medications for this visit. Medications and allergies reviewed by this provider. SOCIAL HISTORY Social History Tobacco Use Smoking status: Never Smokeless tobacco: Never Vaping Use Vaping Use: Never used Substance Use Topics Alcohol use: No Drug use: No REVIEW OF SYSTEMS All other reviewed and negative other than HPI. OBJECTIVE: BP 142/68 Pulse 68 Temp 37.4 C (99.3 F) Resp 18 Wt 73.5 kg (162 lb) SpO2 98% BMI 28.00 kg/m . Vital signs reviewed by this provider. APPEARANCE Well appearing, alert, in no acute distress, well-hydrated, well nourished. EYES conjunctiva and sclera normal. EARS External ears normal, canals clear HEART RRR with normal S1 and S2, no murmurs, no gallops, no JVD appreciated LUNG clear to auscultation. No wheezes, rhonchi, or rales EXTREMITIES Extremities normal, No deformities, No skin discoloration, and No edema SKIN Skin color, texture, turgor normal, no suspicious rashes or lesions to exposed skin SHINGRIX VACCINE(2 of 3) due on 01/17/2011 DTAP,TDAP,TD(1 - Tdap) due on 03/15/2020 COVID-19 VACCINE(3 - Booster for Pfizer series) due on 06/14/2021 ADVANCE DIRECTIVE DISCUSSION Never done DEPRESSION ASSESSMENT Never done LDL CHOLESTEROL due on 08/23/2022 PNEUMOCOCCAL: 65+(2 - PCV) due on 02/21/2023 DIABETES SCREEN due on 02/21/2025 INFLUENZA Completed ASSESSMENT/PLAN: 1. Lab test positive for detection of COVID-19 virus - ICD9: 079.89, ICD10: U07.1 - improving - continue antiviral and may finish Augmentin - no red flag symptoms - red flag symptoms discussed, verbalizes understanding - follow-up with Dr. Castellano as scheduled, sooner if needed, to ER with red flag symptoms Teresa Sanchez APRN.CNP Prescription instructions reviewed with patient as applicable. Patient advised if symptoms do not improve or if symptoms worsen sooner, to contact their primary care physician. Potential red flag symptoms discussed with the patient. Reviewed appropriate action plan to take if red flag symptoms occur. Patient agreeable to treatment plan. I spent a total of 20 minutes on the date of the service which included preparing to see the patient, hvxv-fi-kghh patient care, completing clinical documentation, obtaining and/or reviewing separately obtained history, performing a medically appropriate examination, counseling and educating the patient/family/caregiver, and ordering medications, tests, or procedures. documented in this encounter [facility] 08-27-2022 Instructions Teresa Sanchez APRN.CNP - 08/27/2022 1:17 PM EST Fact Sheet for Patients And Caregivers Emergency Use Authorization (EUA) Of Molnupiravir For Coronavirus Disease 2019 (COVID-19) What is the most important information I should know about molnupiravir? Molnupiravir may cause serious side effects, including: Molnupiravir may cause harm to your unborn baby. It is not known if molnupiravir will harm your baby if you take molnupiravir during . Molnupiravir is not recommended for use in . Molnupiravir has not been studied in . Molnupiravir was studied in animals only. When molnupiravir was given to animals, molnupiravir caused harm to their unborn babies. You and your healthcare provider may decide that you should take molnupiravir during if there are no other COVID-19 treatment options authorized by the FDA that are accessible or clinically appropriate for you. If you and your healthcare provider decide that you should take molnupiravir during , you and your healthcare provider should discuss the known and potential benefits and the potential risks of taking molnupiravir during . For individuals who are able to become : You should use a reliable method of control (contraception) consistently and correctly during treatment with molnupiravir and for 4 days after the last dose of molnupiravir. Talk to your healthcare provider about reliable control methods. Before starting treatment with molnupiravir your healthcare provider may do a test to see if you are before starting treatment with molnupiravir. Tell your healthcare provider right away if you become or think you may be during treatment with molnupiravir. Surveillance Program: There is a surveillance program for individuals who take molnupiravir during . The purpose of this program is to collect information about the health of you and your baby. Talk to your healthcare provider about how to take part in this program. If you take molnupiravir during and you agree to participate in the surveillance program and allow your healthcare provider to share your information with [employer], then your healthcare provider will report your use of molnupiravir during to [employer]. by calling or [email or web address][email or web address]. For individuals who are sexually active with partners who are able to become : It is not known if molnupiravir can affect sperm. While the risk is regarded as low, animal studies to fully assess the potential for molnupiravir to affect the babies of males treated with molnupiravir have not been completed. A reliable method of control (contraception) should be used consistently and correctly during treatment with molnupiravir and for at least 3 months after the last dose. The risk to sperm beyond 3 months is not known. Studies to understand the risk to sperm beyond 3 months are ongoing. Talk to your healthcare provider about reliable control methods. Talk to your healthcare provider if you have questions or concerns about how molnupiravir may affect sperm. You are being given this fact sheet because your healthcare provider believes it is necessary to provide you with molnupiravir for the treatment of adults with gndd-kf-gnvvuojo coronavirus disease 2019 (COVID-19) with positive results of direct SARS-CoV-2 viral testing, and who are at high risk for progressing to severe COVID-19 including hospitalization or , and for whom other COVID-19 treatment options authorized by the FDA are not accessible or clinically appropriate. The [place]. Food and Drug Administration (FDA) has issued an Emergency Use Authorization (EUA) to make molnupiravir available during the COVID-19 pandemic (for more details about an EUA please see What is an Emergency Use Authorization? at the end of this document). Molnupiravir is not an FDA-approved medicine in the [place]. Read this Fact Sheet for information about molnupiravir. Talk to your healthcare provider about your options if you have any questions. It is your choice to take molnupiravir. What is COVID-19? COVID-19 is caused by a virus called a coronavirus. You can get COVID-19 through close contact with another person who has the virus. COVID-19 illnesses have ranged from very kkxl-eg-clxfzr, including illness resulting in . While information so far suggests that most COVID-19 illness is mild, serious illness can happen and may cause some of your other medical conditions to become worse. Older people and people of all ages with severe, long lasting (chronic) medical conditions like heart disease, lung disease and diabetes, for example seem to be at higher risk of being hospitalized for COVID-19. What is molnupiravir? Molnupiravir is an investigational medicine used to treat vbrr-zd-lqmwjiyp COVID-19 in adults: with positive results of direct SARS-CoV-2 viral testing, and who are at high risk for progressing to severe COVID-19 including hospitalization or , and for whom other COVID-19 treatment options authorized by the FDA are not accessible or clinically appropriate. The FDA has authorized the emergency use of molnupiravir for the treatment of mild-tomoderate COVID-19 in adults under an EUA. For more information on EUA, see the What is an Emergency Use Authorization (EUA)? section at the end of this Fact Sheet. Molnupiravir is not authorized: for use in people less than 18 years of age. for prevention of COVID-19. for people needing hospitalization for COVID-19. for use for longer than 5 consecutive days. What should I tell my healthcare provider before I take molnupiravir? Tell your healthcare provider if you: Have any allergies Are or plan to breastfeed Have any serious illnesses Are taking any medicines (prescription, pptr-cck-jbxovgr, vitamins, or herbal products). How do I take molnupiravir? Take molnupiravir exactly as your healthcare provider tells you to take it. Take 4 capsules of molnupiravir every 12 hours (for example, at 8 am and at 8 pm) Take molnupiravir for 5 days. It is important that you complete the full 5 days of treatment with molnupiravir. Do not stop taking molnupiravir before you complete the full 5 days of treatment, even if you feel better. Take molnupiravir with or without food. You should stay in isolation for as long as your healthcare provider tells you to. Talk to your healthcare provider if you are not sure about how to properly isolate while you have COVID-19. Swallow molnupiravir capsules whole. Do not open, break, or crush the capsules. If you cannot swallow capsules whole, tell your healthcare provider. What to do if you miss a dose: If it has been less than 10 hours since the missed dose, take it as soon as you remember If it has been more than 10 hours since the missed dose, skip the missed dose and take your dose at the next scheduled time. Do not double the dose of molnupiravir to make up for a missed dose. What are the important possible side effects of molnupiravir? Possible side effects of molnupiravir are: See, What is the most important information I should know about molnupiravir? diarrhea nausea dizziness These are not all the possible side effects of molnupiravir. Not many people have taken molnupiravir. Serious and unexpected side effects may happen. This medicine is still being studied, so it is possible that all of the risks are not known at this time. What other treatment choices are there? Like molnupiravir, FDA may allow for the emergency use of other medicines to treat people with COVID-19. Go to https://www.fda.gov/emergency-pre zffigrlwy-hhx-rpfgmulq/mcm-legalr dwdnbrjzz-zyx-dlxfwd-framework/em lfjdfzk-ydy-ktcswbwswmkiv for more information. It is your choice to be treated or not to be treated with molnupiravir. Should you decide not to take it, it will not change your standard medical care. What if I am ? is not recommended during treatment with molnupiravir and for 4 days after the last dose of molnupiravir. If you are or plan to breastfeed, talk to your healthcare provider about your options and specific situation before taking molnupiravir. How do I report side effects with molnupiravir? Contact your healthcare provider if you have any side effects that bother you or do not go away. Report side effects to FDA MedWatch at www.fda.gov/medwatch or call 7-652-GRP-6186 ( ). How should I store molnupiravir? Store molnupiravir capsules at room temperature between 68 F to 77 F (20 C to 25 C). Keep molnupiravir and all medicines out of the reach of children and pets. How can I learn more about COVID-19? Ask your healthcare provider. Visit www.cdc.gov/COVID19 Contact your local or state public health department. Call [employer] at (toll free in the [place] Visit www.[employer].InSupply What Is an Emergency Use Authorization (EUA)? The [place] FDA has made molnupiravir available under an emergency access mechanism called an Emergency Use Authorization (EUA) The EUA is supported by a Bench Worker of Health and Human Service ([facility]) declaration that circumstances exist to justify emergency use of drugs and biological products during the COVID-19 pandemic. Molnupiravir for the treatment of vhid-ku-jlllunos COVID-19 in adults with positive results of direct SARS-CoV-2 viral testing, who are at high risk for progression to severe COVID-19, including hospitalization or , and for whom alternative COVID-19 treatment options authorized by FDA are not accessible or clinically appropriate, has not undergone the same type of review as an FDA-approved product. In issuing an EUA under the COVID-19 public health emergency, the FDA has determined, among other things, that based on the total amount of scientific evidence available including data from adequate and well-controlled clinical trials, if available, it is reasonable to believe that the product may be effective for diagnosing, treating, or preventing COVID-19, or a serious or life-threatening disease or condition caused by COVID19; that the known and potential benefits of the product, when used to diagnose, treat, or prevent such disease or condition, outweigh the known and potential risks of such product; and that there are no adequate, approved, and available alternatives. All of these criteria must be met to allow for the product to be used in the treatment of patients during the COVID-19 pandemic. The EUA for molnupiravir is in effect for the duration of the COVID-19 declaration justifying emergency use of molnupiravir, unless terminated or revoked (after which molnupiravir may no longer be used under the EUA). For patent information: www.[employer].InSupply/research/patent Copyright 2020 [employer] [place], [place] and its affiliates. All rights reserved. [id number] Issued: 10/04/2021 documented in this encounter [facility] 08-27-2022 History of Present illness Narrative Telemedicine Follow-up for COVID-19 Infection Audio only was used for evaluation of this patient. Location of patient: [place] In lieu of an in person visit due to coronavirus 19 pandemic concerns, a telephone visit was performed with patient. Patient is aware that I am not fully able to assess symptoms and do a full physical exam including vital signs at this time. Patient consents to the visit SUBJECTIVE Igor Cronin is a 82 year old male who was diagnosed with COVID-19 on 08/26/2022 with symptoms starting on 08/24/2022 Since diagnosis, symptoms are improving. Persistent symptoms include: Fever (?100.4F): No or Chills: No Cough: Yes Shortness of breath: No or Difficulty breathing: No Fatigue: Yes Muscle aches: No Headache: No Loss of smell or taste: No Sore throat: No Nasal congestion: Yes or Rhinorrhea: No Nausea: No or Vomiting: No Diarrhea: No OTC meds/remedies that patient has tried: taking prescribed amoxicillin He reports that he has never smoked. He has never used smokeless tobacco. OBJECTIVE VIDEO EXAM (if available) GENERAL: Pleasant sounding male. Able to answer all questions appropriately without difficulty PULMONARY: No audible coughing or wheezing. Able to speak in full sentences without difficulty ASSESSMENT/PLAN 1. Lab test positive for detection of COVID-19 virus - ICD9: 079.89, ICD10: U07.1 - no red flag symptoms - red flag symptoms discussed, verbalizes understanding - interaction exists between Plavix and paxlovid, will choose alternative therapy - discussed EUA, benefits, risks and side effects of molnupiravir, patient verbalizes understanding - MOLNUPIRAVIR 200 MG CAPSULE (EUA) - discussed current CDCs guidelines for isolation, verbalizes understanding - follow-up with PCP as scheduled, to ER with red flag symptoms Teresa Sanchez APRN.BRENDAN This patient encounter involved the screening or treatment of novel coronavirus infection (COVID-19). Molnupiravir Eligibility and Patient Discussion [facility] Formulary Restriction Criteria: Adult outpatients 18 years and older with ALL of the following: [x] Patient has positive SARS-COV-2 viral test (PCR or antigen test) during current illness [x] Patient has symptoms for 5 days or less [x] Not requiring hospitalization at any time for management of COVID-19 [x] Not requiring supplemental oxygen or a change in baseline supplemental oxygen [x] Not utilized for pre-exposure or post-exposure prophylaxis for prevention of COVID-19 [x] Patient is not or lactating [x] Meeting at least one of the criteria for high risk of progression to severe COVID-19: [x] Age over 65 years [] Cancer [] Chronic kidney disease [] Chronic liver disease [] Chronic lung diseases, including cystic fibrosis [] Dementia or other neurological conditions [] Diabetes (type 1 or type 2) [] Disabilities, including Down syndrome and neurodevelopmental disorders [x] Heart conditions [] HIV infection [] Immunocompromised state [] Mental health conditions [] Medical related technological dependence (tracheostomy, gastrostomy, or positive pressure ventilation (not related to COVID) [] Overweight and obesity (BMI greater or equal to 25 for adults) [] Physical inactivity [] Sickle cell disease or thalassemia [] Smoking, current or former [] Solid organ or blood stem cell transplant [] Stroke or cerebrovascular disease [] Substance use disorders [] Tuberculosis [] People from racial and ethnic minority groups Criteria above are met: Yes Date of Positive Test:08/26/2022 Date of Symptom Onset: 08/24/2022 Patient received COVID vaccine: Yes / status reviewed: Females: [] Patient is not currently and there is no possibility the patient could be (select one of the following): [] test does not need to be confirmed in patients who have undergone permanent sterilization, are currently using an intrauterine system or contraceptive implant, or in whom is not possible. [] Patients not meeting conditions above: assess whether the patient is based on the first day of the last menstrual period in individuals who have regular menstrual cycles, is using reliable method of contraception correctly and consistently or have had a negative test [] A test is recommended if the individual has irregular menstrual cycles, is unsure of the first day of the last menstrual period or is not using effective contraception correctly and consistently [] Patient is not currently . is not recommended during treatment and for four days after final dose of molnupiravir. [] Females have been advised to use a reliable method of contraception correctly and consistently for the duration of treatment and for four days after the last dose of molnupiravir Males: [x] Sexually active male with partner(s) of childbearing potential has been advised to use a reliable method of contraception correctly and consistently for intercourse for the duration of treatment and for three months after the last dose of molnupiravir I have discussed the use of the investigational therapeutic, molnupiravir, for the treatment of mild to moderate COVID-19 and its use under Emergency Use Authorization with the patient. The patient was informed that molnupiravir is not an FDA approved drug and that it is authorized for use under this Emergency Use Authorization. The patient was also informed of the significant known benefits and potential risks of molnupiravir, and the extent to which such potential risks and benefits are unknown. The patient was informed that there is mandatory reporting of all medication errors and serious adverse events potentially related to molnupiravir treatment within 7 calendar days from the onset of the event and that events up to 28 days after completion of therapy need to be reported. The discussion included alternatives to receiving molnupiravir, including clinical trials, and potential the risks and benefits of those alternatives. The patient was provided electronically with the Fact Sheet for Patients, Parents and Caregivers . The patient was also instructed that in addition to the treatment with molnupiravir, he/she should continue to self-isolate and use infection control measures (e.g., wear mask, isolate, social distance, avoid sharing personal items, clean and disinfect high touch surfaces, and frequent handwashing) according to CDC guidelines. The patient stated understanding and gave verbal consent to proceeding with molnupiravir treatment. Teresa Sanchez APRN.CNP August 27, 2022 1:17 PM I spent a total of 20 minutes on the date of the service which included preparing to see the patient, completing clinical documentation, obtaining and/or reviewing separately obtained history, performing a medically appropriate examination, counseling and educating the patient/family/caregiver, and ordering medications, tests, or procedures. documented in this encounter [facility] 08-27-2022 Miscellaneous Notes Reviewed. Teresa Sanchez APRN.CNP Pt called back and states his symptoms started on Friday08-24-22 not Friday08-23-22. Lucila Adan LPN Reviewed. Teresa Sanchez APRN.BRENDAN Pt called in for results of testing from yesterday 08-26-22 [facility]. Pt is COVID positive day 4 and was instructed to contact pcp or a provider to do a virtual apt. Pt does not do virtual apts. Pt scheduled for a phone apt today with provider. Call pt on home phone. Lucila Adan LPN documented in this encounter [facility] 08-26-2022 History of Present illness Narrative 08/26/2022 Patient presents with: Chest Congestion: cough, productive, chills x 3 days SUBJECTIVE: This is a 82 year old that is here today for Complaint(s) of chest congestion and cough x 3 days. Overall feeling run down/weak per patient. + nasal congestion associated. Able to still do daily tasks, but feels like he has to push himself. Cough is productive with yellow sputum. + chills. Denies fever, SOB, wheezing, chest pain, calf pain, vomiting, diarrhea . No history of asthma/COPD. COVID vaccine. Has had bronchitis previously. PM HTN, ASHD. No hx of CHF. Always has some baseline LE edema, not worse than baseline per patient, he is on amlodipine. . PAST MEDICAL HISTORY Diagnosis Date ASHD (arteriosclerotic heart disease) Benign non-nodular prostatic hyperplasia with lower urinary tract symptoms 11/06/2015 Chronic anticoagulation 03/08/2015 Diverticulosis of colon (without mention of hemorrhage) Elevated hemoglobin A1c 09/17/2019 Elevated PSA 02/21/2022 Encounter for Medicare annual wellness exam 08/23/2021 Medical B eligibility date 04/12/2005 Date of last exam 08/23/2021 Essential hypertension, benign Gout, unspecified History of stroke 09/17/2019 Hyperlipidemia, mixed 09/29/2017 Internal hemorrhoids without mention of complication Osteoarthrosis, unspecified whether generalized or localized, unspecified site Paroxysmal atrial fibrillation ([facility]) 03/08/2015 Persistent proteinuria 09/17/2021 Consult to nephrology 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 amLODIPine (NORVASC) 5 mg tablet Take 1 tablet by mouth once daily. metroNIDAZOLE 0.75 % cream apply to rosacea twice/day ZINC ACETATE ORAL Take by mouth. Unsure of dose Lactobacillus acidophilus (PROBIOTIC ORAL) Take by mouth. Unsure of dose doxazosin mesylate (DOXAZOSIN ORAL) Take 2 mg by mouth once daily. rosuvastatin (CRESTOR) 40 mg tablet Take 1 tablet by mouth once daily. Take one tablet daily clopidogrel (PLAVIX) 75 mg tablet Take 1 tablet by mouth once daily. fish,bora,flax oils-om3,6,9no1 (OMEGA 3-6-9) 1,200 mg cap Take 1,200 mg by mouth. calcium carbonate/vitamin D3 (CALCIUM 600 + D,3, ORAL) Take 600 mg by mouth. BEE POLLEN ORAL Take by mouth. ASPIRIN 81 MG TAB Take one(1) tablet daily. GLUCOSAMINE 1500 COMPLEX 500 MG-400 MG CAP Take one(1) tablet daily. No current facility-administered medications for this visit. SOCIAL HISTORY Social History Tobacco Use Smoking status: Never Smokeless tobacco: Never Vaping Use Vaping Use: Never used Substance Use Topics Alcohol use: No Drug use: No REVIEW OF SYSTEMS See HPI OBJECTIVE: BP 132/64 Pulse 70 Temp 37.6 C (99.6 F) Resp 16 Wt 74.8 kg (165 lb) SpO2 95% BMI 28.52 kg/m repeat SpO2 93% APPEARANCE alert, in no acute distress, well-hydrated, well nourished. EYES PERRLA, conjunctiva and sclera normal. EARS External ears normal, canals clear. TMs normal TITO NOSE/SINUS Nares normal. Septum midline. Mucosa normal. No drainage or sinus tenderness. THROAT normal, no erythema NECK Supple, no adenopathy; HEART RRR with normal S1 and S2, LUNG coarse breath sounds TITO throughout, no wheezing, no accessory muscle use. EXTREMITIES Extremities normal, No deformities, No skin discoloration, trace ankle edema TITO. No calf TTP. Negative Homans'. ASSESSMENT/PLAN: 1. Acute cough - ICD9: 786.2, ICD10: R05.1 (primary diagnosis) Supportive care with fliuds and rest. R/o COVID/flu. Suspect likely viral etiology CXR shows possible TITO pleural effusions at the costophrenic angles. Discussed with PCP, will start Augmentin, schedule close f/u for recheck with PCP office Reviewed red flags and when to seek care sooner in ER - XR CHEST 2V FRONTAL/LAT - AMOXICILLIN 875 MG-POTASSIUM CLAVULANATE 125 MG TABLET - COVID WITH FLUA+B, ROUTINE 2. Pleural effusion - ICD9: 511.9, ICD10: J90 As above - COVID WITH FLUA+B, ROUTINE The patient indicates understanding of these issues and agrees with the plan. Erin De La Rosa PA-C documented in this encounter [facility] 08-08-2022 Miscellaneous Notes This is being addressed in another encounter. Abdulkadir Watkins LPN documented in this encounter [facility] 08-08-2022 Miscellaneous Notes OPAL 02/21/22 NOV 09/20/22 Abdulkadir Watkins LPN documented in this encounter [facility] 03-18-2022 History of Present illness Narrative NEW PATIENT (CONSULT) HISTORY AND PHYSICAL EXAM PRIMARY CARE PHYSICIAN: Harrison Castellano MD REASON FOR CONSULT: Tito vert occlusion REFERRING PHYSICIAN: Self CHIEF COMPLAINT: History of stroke and VBI. HISTORY OF PRESENT ILLNESS: Igor Cronin is a 81 year old male, previously followed by Dr. Box for past medical history of intracranial atherosclerosis and dizziness/syncope. 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 He has formed excellent collaterals and has had absolutely no vertebrobasilar symptoms no diplopia no ataxia no falls no lightheadedness no syncope or near syncope. He remains on aspirin and Plavix both for his intracranial atherosclerosis and his coronary artery stents and coronary artery disease and remains on high-dose Crestor which she is tolerating well. His blood pressure was elevated in the office today but he does have a machine at home and takes it regularly and says it has been consistently in the 1 40-1 50 systolic range. We did discuss that the goal is to get it down to 140 or less. I am reluctant to do less than 130 in his case given his advanced age and the bilateral vertebral occlusions. 1. 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 Continue aspirin Plavix and high-dose Crestor. We did discuss that he does have to get a little bit better blood pressure control and get his systolic blood pressure consistently below 140. His primary care physician had taken him off of some antihypertensive medications but then had to put him back on amlodipine again. He will continue to monitor this. I will see him once again in follow-up in 1 year's time but would like him to get a repeat MRA of his neck and brain to be sure he is not developing carotid atherosclerosis or anterior circulation intracranial atherosclerosis that is significant that would potentially compromise his collateral circulation to the vertebrobasilar system. Note that the repeat MRI/MRA was performed on 05/14/21 and per rad report (images reviewed and agree imaging appears stable): 1. No appreciable flow in the basilar artery. Occlusion of the bilateral V4 segments of the vertebral arteries with collateralization via a left PICA. 2. 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 3. Overall appearance is unchanged compared with the prior exam. Patient remains asx. No diplopia, dysarthria, dysphagia, vertigo, ataxia, loc. No falls. No other posterior fossa symptoms. Compliant with meds. BP typically runs between 140-150/70-80. Pt states was told by cardiology no longer needed anticoagulation with prior history of paroxysmal afib. Tolerating meds. REVIEW OF SYSTEMS GENERAL:No weight loss, malaise or fevers. HEENT:Negative for frequent or significant headaches, No changes in hearing or vision, no nose bleeds or other nasal problems NECK:Negative for lumps, goiter, pain and significant neck swelling RESPIRATORY: Negative for cough, wheezing or shortness of breath. CARDIOVASCULAR: Negative for chest pain, leg swelling or palpitations. GASTROINTESTINAL: Negative for abdominal discomfort, blood in stools or black stools or change in bowel habits GENITOURINARY: No history of dysuria, frequency or incontinence MUSCULOSKELETAL: Negative for joint pain or swelling, back pain or muscle pain. NEUROLOGIC:Negative for focal numbness or weakness, headaches and dizziness or syncope, vision changes, speech/language changes, changes in gait or falls -- besides those complaints as above in HPI. SKIN:Negative for lesions, rash, and itching. LAB/IMAGING: Reviewed and include: WBC (k/uL) Date Value 08/23/2021 5.41 RBC (m/uL) Date Value 08/23/2021 4.66 Hemoglobin (g/dL) Date Value 08/23/2021 15.0 Hematocrit (%) Date Value 08/23/2021 44.4 MCV (fL) Date Value 08/23/2021 95.3 MCH (pG) Date Value 08/23/2021 32.2 MCHC (g/dL) Date Value 08/23/2021 33.8 RDW-CV (%) Date Value 08/23/2021 15.1 (H) Platelet Count (k/uL) Date Value 08/23/2021 136 (L) MPV (fL) Date Value 08/23/2021 10.9 Glucose (mg/dL) Date Value 12/31/2021 93 BUN (mg/dL) Date Value 12/31/2021 17 Creatinine (mg/dL) Date Value 12/31/2021 1.08 Sodium (mmol/L) Date Value 12/31/2021 140 Potassium (mmol/L) Date Value 12/31/2021 4.4 Chloride (mmol/L) Date Value 12/31/2021 106 (H) CO2 (mmol/L) Date Value 12/31/2021 26 Protein, Total (g/dL) Date Value 12/31/2021 6.6 Albumin (g/dL) Date Value 08/23/2021 4.3 Calcium, Total (mg/dL) Date Value 12/31/2021 9.0 Alkaline Phosphatase (U/L) Date Value 08/23/2021 64 Bilirubin, Total (mg/dL) Date Value 08/23/2021 0.5 AST (U/L) Date Value 08/23/2021 30 ALT (U/L) Date Value 08/23/2021 29 MEDICATIONS: ZINC ACETATE ORAL Take by mouth. Unsure of dose Lactobacillus acidophilus (PROBIOTIC ORAL) Take by mouth. Unsure of dose doxazosin mesylate (DOXAZOSIN ORAL) Take 2 mg by mouth once daily. allopurinol (ZYLOPRIM) 300 mg tablet Take 1 tablet by mouth once daily. rosuvastatin (CRESTOR) 40 mg tablet Take 1 tablet by mouth once daily. Take one tablet daily clopidogrel (PLAVIX) 75 mg tablet Take 1 tablet by mouth once daily. fish,bora,flax oils-om3,6,9no1 (OMEGA 3-6-9) 1,200 mg cap Take 1,200 mg by mouth. calcium carbonate/vitamin D3 (CALCIUM 600 + D,3, ORAL) Take 600 mg by mouth. BEE POLLEN ORAL Take by mouth. amLODIPine (NORVASC) 5 mg tablet Take 1 tablet by mouth once daily. metroNIDAZOLE 0.75 % cream apply to rosacea twice/day ASPIRIN 81 MG TAB Take one(1) tablet daily. GLUCOSAMINE 1500 COMPLEX 500 MG-400 MG CAP Take one(1) tablet daily. HISTORIES PAST MEDICAL HISTORY Diagnosis Date ASHD (arteriosclerotic heart disease) Benign non-nodular prostatic hyperplasia with lower urinary tract symptoms 11/06/2015 Chronic anticoagulation 03/08/2015 Diverticulosis of colon (without mention of hemorrhage) Elevated hemoglobin A1c 09/17/2019 Elevated PSA 02/21/2022 Encounter for Medicare annual wellness exam 08/23/2021 Medical B eligibility date 04/12/2005 Date of last exam 08/23/2021 Essential hypertension, benign Gout, unspecified History of stroke 09/17/2019 Hyperlipidemia, mixed 09/29/2017 Internal hemorrhoids without mention of complication Osteoarthrosis, unspecified whether generalized or localized, unspecified site Paroxysmal atrial fibrillation ([facility]) 03/08/2015 Persistent proteinuria 09/17/2021 Consult to nephrology S/P CABG x 5 03/08/2015 Thrombocytopenia ([facility]) 08/24/2021 130s- monitor Umbilical hernia 10/29/2012 Umbilical hernia without mention of obstruction or gangrene Venous insufficiency of right leg 03/31/2019 Vertebral artery disease (HCC) 09/17/2019 FAMILY HISTORY Problem Relation Age of Onset Arthritis Mother Hypertension Father Diabetes Brother Diabetes Brother Stroke Brother Hypertension Sister Hypertension Sister SOCIAL HISTORY Social History Tobacco Use Smoking status: Never Smoker Smokeless tobacco: Never Used Vaping Use Vaping Use: Never used Substance Use Topics Alcohol use: No Drug use: No PHYSICAL EXAMINATION Blood pressure 142/68, pulse 69, temperature 36.4 C (97.5 F), resp. rate 18, weight 75.3 kg (166 lb), SpO2 96 %. NIHSS = 0 GENERAL EXAM: General appearance: NAD, pleasant. HEENT: NC/AT, nasal congestion absent, no oral lesions, membranes moist. NECK: No masses, supple. Lungs: CTA bilaterally. CV: RRR nl S1, S2. No carotid bruits. Extr: No cyanosis, clubbing or edema. Skin: Cool to touch. NEUROLOGICAL EXAM: General: Awake, alert, oriented x3 (person,place,time), speech fluent, no dysarthria; comprehension, naming, repetition intact. Fund of knowledge grossly normal. CN: PERRL, fundi with no evidence of papilledema, EOMI and without nystagmus, VFF to confrontation, facial sensation and strength are normal and symmetric, hearing is intact to finger rub bilaterally, palate and tongue movements are intact and symmetric. SCM and trapezius strength normal. Motor: Normal tone, bulk and strength (5/5) bilaterally (throughout extremities x4). Coordination: FNF, ANGELA, HTS intact. No tremors. Sensation: Light touch, vibration, temperature intact throughout. No evidence of neglect. Gait: Stable with normal stride and arm swing. Romberg normal. Total Cholesterol, Nonfasting Date Value Ref Range Status 08/23/2021 87 <200 mg/dL Final Comment: <200 mg/dL, Desirable 200-239 mg/dL, Borderline high >239 mg/dL, High HDL Cholesterol, Nonfasting Date Value Ref Range Status 08/23/2021 45 >39 mg/dL Final Comment: 40-59 mg/dL, Acceptable >59 mg/dL, High: Negative risk factor for coronary heart disease <40 mg/dL, Low: Positive risk factor for coronary heart disease LDL Cholesterol, Nonfasting Date Value Ref Range Status 08/23/2021 29 <100 mg/dL Final Comment: <100 mg/dL, Optimal 100-129 mg/dL, Near optimal/above optimal 130-159 mg/dL, Borderline high 160-189 mg/dL, High >189 mg/dL, Very high Secondary prevention optimal LDL Cholesterol levels are recommended to be < 70 mg/dL Triglycerides, Nonfasting Date Value Ref Range Status 08/23/2021 67 <150 mg/dL Final Comment: <150 mg/dL, Normal 150-199 mg/dL, Borderline high 200-499 mg/dL, High >499 mg/dL, Very high Assessment and Plan: ASSESSMENT/PLAN: 1. VBI (vertebrobasilar insufficiency) - ICD9: 435.3, ICD10: G45.0 (primary diagnosis) 2. Intracranial atherosclerosis - ICD9: 437.0, ICD10: I67.2 3. 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 However, compensating by means of patent communication arteries as well as collaterals. Anterior circulation patent and stable as above per rad report. Images reviewed with patient during this visit. At this time, given non focal neuro exam and no new complaints, will continue treatment as before including: DAPT with ASA 81mg daily and Plavix 75mg daily, Crestor 40mg daily and BP control with goal sys of 140-150 to prevent possible hypoperfusion. Lipids well controlled but will need follow up with PCP in the future. Encouraged exercise. Discussed with pt stroke risks and precautions and need to report to ER immediately (or call 911) for stroke like symptoms. Only confirmation needed is why anticoagulation was d/c'd with reported history of parox afib. Will attempt to clarify with Dr. Box. Will consider repeat of vascular imaging at time of next visit or sooner if symptomatic. Follow up 1 year of sooner prn. Velma De La Rosa MD I spent a total of 40+ minutes on the date of the service which included preparing to see the patient, [id number] patient care, completing clinical documentation, obtaining and/or reviewing separately obtained history, performing a medically appropriate examination, counseling and educating the patient/family/caregiver, ordering medications, tests, or procedures, independently interpreting results (not separately reported) and communicating results to the patient/family/caregiver. documented in this encounter [facility] 02-25-2022 Miscellaneous Notes Notified via [employer]. Let patient know blood sugar test is stable but still slightly elevated. Continue to work on less sugar, starch and carbs in diet. PSA test showed total PSA was slightly lower and Free PSA was still good. Will continue to monitor. documented in this encounter [facility] 05-14-2021 Note HNO ID: [id number] Author: RT Elida(R) Service: Radiology Author Type: [employer] Type: Progress Notes Filed: 05/14/2021 2:53 PM Note Text: Radiology Service Progress Note PATIENT NAME: Igor Cronin DATE OF SERVICE: May 14, 2021 TIME: 2:51 PM PATIENT IDENTITY VERIFICATION COMPLETED USING TWO (2) IDENTIFIERS: Name and Date of confirmed by patient verbally. FALL SCREENING: Has the patient had 2 falls in the last year or 1 fall with injury or currently using an Ambulatory Assistive Device (Walker, Cane, Wheelchair, Crutches, etc.)? No PATIENT GENDER DATA: Male PATIENT RELEVANT IMPLANT DATA REVIEWED: Not Applicable RADIOLOGY DEPARTMENT: MR; Exam(s) Completed: Neck: Carotids MRA, bilateral PERIPHERAL IV DATA: Not applicable SIGNED BY: RT Elida(R) May 14, 2021 2:51 PM [facility] 05-14-2021 Note HNO ID: [id number] Author: RT Elida(R) Service: Radiology Author Type: [employer] Type: Progress Notes Filed: 05/14/2021 10:34 AM Note Text: Radiology Service Progress Note PATIENT NAME: Igor Cronin DATE OF SERVICE: May 14, 2021 TIME: 10:33 AM PATIENT IDENTITY VERIFICATION COMPLETED USING TWO (2) IDENTIFIERS: Name and Date of confirmed by patient verbally. FALL SCREENING: Has the patient had 2 falls in the last year or 1 fall with injury or currently using an Ambulatory Assistive Device (Walker, Cane, Wheelchair, Crutches, etc.)? No PATIENT GENDER DATA: Male PATIENT RELEVANT IMPLANT DATA REVIEWED: Not Applicable RADIOLOGY DEPARTMENT: MR; Exam(s) Completed: Head: [employer] [facility] [place] MRA PERIPHERAL IV DATA: Not applicable SIGNED BY: RT Elida(R) May 14, 2021 10:33 AM [facility] 04-06-2021 Note HNO ID: [id number] Author: Steven Box Jr., MD Service: ? 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 He has formed excellent collaterals and has had absolutely no vertebrobasilar symptoms no diplopia no ataxia no falls no lightheadedness no syncope or near syncope. He remains on aspirin and Plavix both for his intracranial atherosclerosis and his coronary artery stents and coronary artery disease and remains on high-dose Crestor which she is tolerating well. His blood pressure was elevated in the office today but he does have a machine at home and takes it regularly and says it has been consistently in the 1 40-1 50 systolic range. We did discuss that the goal is to get it down to 140 or less. I am reluctant to do less than 130 in his case given his advanced age and the bilateral vertebral occlusions. He has no complaints. He had a wonderful birthday celebration in [facility] last year when he had his 80th birthday. Medical History: PAST MEDICAL HISTORY Diagnosis Date - ASHD (arteriosclerotic heart disease) - Chronic anticoagulation 03/08/2015 - Diverticulosis of colon (without mention of hemorrhage) - Essential hypertension, benign - Gout, unspecified - Hyperlipidemia LDL goal <100 09/29/2017 - Hyperplasia of prostate - Internal hemorrhoids without mention of complication - Osteoarthrosis, unspecified whether generalized or localized, unspecified site - Paroxysmal atrial fibrillation (HCC) 03/08/2015 - S/P CABG x 5 03/08/2015 - Umbilical hernia 10/29/2012 - Umbilical hernia without mention of obstruction or gangrene Surgical History: PAST SURGICAL HISTORY Procedure Laterality Date - COLONOSCOP W/ OR W/O [facility] SPEC 12/03/07 - EXPLOR HEART SURG WND W CP BYPASS 02/17/2015 bypass x / [facility] - LEFT HEART CATH 02/13/2015 [facility] - see scanned documents - REPAIR ING HERNIA,5+Y/O,REDUCIBL Hernia repair, inguinal - REPAIR UMBILICAL GEORGIE,<5Y/O,REDUC Hernia repair, umbilical - SKIN BX, 1 LESION Right 11/22/2016 Shave bx right posterior shoulder Current Outpatient Medications Medication Sig - rosuvastatin (CRESTOR) 40 mg tablet Take 1 tablet by mouth once daily. Take one tablet daily - amLODIPine (NORVASC) 5 mg tablet Take 1 tablet by mouth once daily. - allopurinol (ZYLOPRIM) 300 mg tablet Take 1 tablet by mouth once daily. - clopidogrel (PLAVIX) 75 mg tablet Take 1 tablet by mouth once daily. - metroNIDAZOLE 0.75 % cream apply to rosacea twice/day - ASPIRIN 81 MG TAB Take one(1) tablet daily. - GLUCOSAMINE 1500 COMPLEX 500 MG-400 MG CAP Take one(1) tablet daily. No current facility-administered medications for this visit. REVIEW OF SYSTEMS: ALLERGIES Allergen Reactions - Benazepril Cough - Sulfa (Sulfonamide * Itching General: No unexplained weight loss or gain, fatigue, fever, chills, sweats Cardiac: No palpitations, chest pain, angina, known history of CAD GI: No peptic ulcer disease, GI bleeding, GERD. No liver disease or failure unless otherwise noted as follows. Endocrine: No polyurea, polydipsia, polyphagia or h/o diebetes. No heat or cold intolerance. Psychiatric: No depresssion, anxiety. Neurological: Negative including pain, falls, dysphagia Examination: BP 169/67 (BP Site: Left Arm, BP Position: Sitting, BP Cuff Size: Regular Adult) Pulse 64 Ht 5' 5 (1.651 m) Wt 167 lb 6.4 oz (75.9 kg) BMI 27.86 kg/m? NIHSS: 1(a). Mental Status - LOC 0 = Alert and Attentive 1(b). LOC Questions 0 = Correct age and month 1(c). LOC-Commands 0 = Both 2. Gaze 0 = Normal 3. Visual Stevenson 0 = Full 4. Facial Weakness 0 = Normal 5(a). Left Arm 0 = No drift 5(b). Right Arm 0 = No drift 6(a). Left Leg 0 = No drift 6(b). Right Leg 0 = No drift 7. Ataxia 0 = Absent 8. Sensory 0 = Normal 9. Aphasia 0 = None 10. Dysarthria 0 = Absent 11. Neglect 0 = None NIHSS Total (0-42): 0 Review of medical records/ testing:I did review his interim medical records he had his first dose of the [employer] Covid vaccine and tolerated it well. His Covid antibody test was negative which would suggest he has not previously had Covid. He did ask me if it is okay for him to get the vaccine and I told him absolutely it is. -Cerebrovascular Categories: Other Symptomatic: VBI (more content not included)... [facility] documented as of this encounter (statuses as of 02/25/2022) [facility] History of Past illness Narrative* Problem Noted Date Resolved Date Skin lesion 11/22/2016 11/12/2018 Chronic anticoagulation 03/08/2015 11/06/19 16 Umbilical hernia 10/29/2012 05/01/2015 Umbilical hernia without mention of obstruction or gangrene 09/26/2005 documented as of this encounter (statuses as of 03/18/2022) [facility] History of Past illness Narrative* Problem Noted Date Resolved Date Skin lesion 11/22/2016 11/12/2018 Chronic anticoagulation 03/08/2015 11/06/19 16 Umbilical hernia 10/29/2012 05/01/2015 Umbilical hernia without mention of obstruction or gangrene 09/26/2005 documented as of this encounter (statuses as of 08/08/2022) [facility] History of Past illness Narrative* Problem Noted Date Resolved Date Skin lesion 11/22/2016 11/12/2018 Chronic anticoagulation 03/08/2015 11/06/19 16 Umbilical hernia 10/29/2012 05/01/2015 Umbilical hernia without mention of obstruction or gangrene 09/26/2005 documented as of this encounter (statuses as of 08/08/2022) [facility] History of Past illness Narrative* Problem Noted Date Resolved Date Skin lesion 11/22/2016 11/12/2018 Chronic anticoagulation 03/08/2015 11/06/19 16 Umbilical hernia 10/29/2012 05/01/2015 Umbilical hernia without mention of obstruction or gangrene 09/26/2005 documented as of this encounter (statuses as of 08/27/2022) [facility] History of Past illness Narrative* Problem Noted Date Resolved Date Skin lesion 11/22/2016 11/12/2018 Chronic anticoagulation 03/08/2015 11/06/19 16 Umbilical hernia 10/29/2012 05/01/2015 Umbilical hernia without mention of obstruction or gangrene 09/26/2005 documented as of this encounter (statuses as of 08/27/2022) [facility] History of Past illness Narrative* Problem Noted Date Resolved Date Skin lesion 11/22/2016 11/12/2018 Chronic anticoagulation 03/08/2015 11/06/19 16 Umbilical hernia 10/29/2012 05/01/2015 Umbilical hernia without mention of obstruction or gangrene 09/26/2005 documented as of this encounter (statuses as of 08/27/2022) [facility] History of Past illness Narrative* Problem Noted Date Resolved Date Skin lesion 11/22/2016 11/12/2018 Chronic anticoagulation 03/08/2015 11/06/19 16 Umbilical hernia 10/29/2012 05/01/2015 Umbilical hernia without mention of obstruction or gangrene 09/26/2005 documented as of this encounter (statuses as of 08/30/2022) [facility] History of Past illness Narrative* Problem Noted Date Resolved Date Skin lesion 11/22/2016 11/12/2018 Chronic anticoagulation 03/08/2015 11/06/19 16 Umbilical hernia 10/29/2012 05/01/2015 Umbilical hernia without mention of obstruction or gangrene 09/26/2005 documented as of this encounter (statuses as of 01/08/2023) [facility] History of Past illness Narrative* Problem Noted Date Resolved Date Skin lesion 11/22/2016 11/12/2018 Chronic anticoagulation 03/08/2015 11/06/19 16 Umbilical hernia 10/29/2012 05/01/2015 Umbilical hernia without mention of obstruction or gangrene 09/26/2005 documented as of this encounter (statuses as of 01/10/2023) [facility] History of Past illness Narrative* Problem Noted Date Resolved Date Skin lesion 11/22/2016 11/12/2018 Chronic anticoagulation 03/08/2015 11/06/19 16 Umbilical hernia 10/29/2012 05/01/2015 Umbilical hernia without mention of obstruction or gangrene 09/26/2005 documented as of this encounter (statuses as of 02/06/2023) [facility] History of Past illness Narrative* Problem Noted Date Diagnosed Date Resolved Date Skin lesion 11/22/2016 11/12/2018 Chronic anticoagulation 03/08/201510/14 Umbilical hernia 10/29/2012 05/01/2015 Umbilical hernia without men tion of obstruction or gangrene 09/26/2005 documented as of this encounter (statuses as of 06/14/2023) [address]10-2017 History of Past illness Narrative* Problem Noted Date Diagnosed Date Resolved Date Skin lesion 11/22/2016 11/12/2018 Chronic anticoagulation 03/08/201510/14 Umbilical hernia 10/29/2012 05/01/2015 Umbilical hernia without men tion of obstruction or gangrene 09/26/2005 documented as of this encounter (statuses as of 07/11/2023) [facility] History of Past illness Narrative* Problem Noted Date Diagnosed Date Resolved Date Skin lesion 11/22/2016 11/12/2018 Chronic anticoagulation 03/08/201510/14 Umbilical hernia 10/29/2012 05/01/2015 Umbilical hernia without men tion of obstruction or gangrene 09/26/2005 documented as of this encounter (statuses as of 08/01/2023) [facility] History of Past illness Narrative* Problem Noted Date Diagnosed Date Resolved Date Skin lesion 11/22/2016 11/12/2018 Chronic anticoagulation 03/08/201510/14 Umbilical hernia 10/29/2012 05/01/2015 Umbilical hernia without men tion of obstruction or gangrene 09/26/2005 documented as of this encounter (statuses as of 08/06/2023) [facility] History of Past illness Narrative* Problem Noted Date Diagnosed Date Resolved Date Skin lesion 11/22/2016 11/12/2018 Chronic anticoagulation 03/08/201510/14 Umbilical hernia 10/29/2012 05/01/2015 Umbilical hernia without men tion of obstruction or gangrene 09/26/2005 documented as of this encounter (statuses as of 08/14/2023) [facility] History of Past illness Narrative* Problem Noted Date Diagnosed Date Resolved Date Skin lesion 11/22/2016 11/12/2018 Chronic anticoagulation 03/08/201510/14 Umbilical hernia 10/29/2012 05/01/2015 Umbilical hernia without men tion of obstruction or gangrene 09/26/2005 documented as of this encounter (statuses as of 09/22/2023) [facility] History of Past illness Narrative* Problem Noted Date Diagnosed Date Resolved Date Skin lesion 11/22/2016 11/12/2018 Chronic anticoagulation 03/08/201510/14 Umbilical hernia 10/29/2012 05/01/2015 Umbilical hernia without men tion of obstruction or gangrene 09/26/2005 documented as of this encounter (statuses as of 09/27/2023) [facility] History of Past illness Narrative* Problem Noted Date Diagnosed Date Resolved Date Skin lesion 11/22/2016 11/12/2018 Chronic anticoagulation 03/08/201510/14 Umbilical hernia 10/29/2012 05/01/2015 Umbilical hernia without men tion of obstruction or gangrene 09/26/2005 documented as of this encounter (statuses as of 11/21/2023) [facility] History of Past illness Narrative* Problem Noted Date Diagnosed Date Resolved Date Skin lesion 11/22/2016 11/12/2018 Chronic anticoagulation 03/08/201510/14 Umbilical hernia 10/29/2012 05/01/2015 Umbilical hernia without men tion of obstruction or gangrene 09/26/2005 documented as of this encounter (statuses as of 11/27/2023) [facility] Diagnosis VBI (vertebrobasilar insufficiency)- Primary Vertebrobasilar artery syndrome Intracranial atherosclerosis Cerebral atherosclerosis History of stroke Transient ischemic attack (TIA), and cerebral infarction without residual deficits [facility] Diagnosis Chronic gout without tophus, unspecified cause, unspecified site [facility] Diagnosis Acute cough- Primary Pleural effusion Unspecified pleural effusion [facility] Diagnosis Lab test positive for detection of COVID-19 virus- Primary [facility] Diagnosis Lab test positive for detection of COVID-19 virus- Primary [facility] Diagnosis Nasal congestion- Primary Other diseases of nasal cavity and sinuses Seasonal allergies Allergic rhinitis, cause unspecified [facility] Diagnosis VBI (vertebrobasilar insufficiency)- Primary Vertebrobasilar artery syndrome Intracranial atherosclerosis Cerebral atherosclerosis History of stroke Transient ischemic attack (TIA), and cerebral infarction without residual deficits [facility] Diagnosis URI, acute- Primary Acute upper respiratory infections of unspecified site [facility] Diagnosis Kidney lesion, lytton, right Unspecified disorder of kidney and ureter [facility] Diagnosis Kidney lesion, lytton, right- Primary Unspecified disorder of kidney and ureter documented in this encounter [facility] for referral (narrative)* Outpatient Procedure (Routine) - Authorized Specialty Diagnoses / Procedures Referred By Contdenise t Referred To [facility] Diagnoses VBI (vertebrobasilar insufficiency) Intracranial atherosclerosis History of stroke Procedures US CAROTID ARTERIES TITO VAS LAB DUPLEX SCAN EXTRACRANIAL ART COMPL BI STUDY Velma De La Rosa Jr., MD [address] [place] [address] [facility] [address] [place] [address] Referral ID Status Reason Start Date Expiration Date Visits Requested Visits Authorized [id number] Authorized Auto-Generat ed Referral 07/31/2024 1 1 * Diagnostic Procedure Only (Routine) - Closed Specialty Diagnoses / Procedures Referred By Contac t Referred To Contact [facility] Diagnoses VBI (vertebrobasilar insufficiency) Intracranial atherosclerosis History of stroke Procedures US CAROTID BILATERAL Velma De La Rosa Jr., MD [address] [facility] [address] [place] [address] [place] [address] Referral ID Status Reason Start Date Expiration Date V isits Requested Visits Authorized [id number] Closed Auto-Generate d Referral 08/01/2023 08/30/2024 1 1 [facility] Diagnostic Procedure Only (Routine) - Closed Specialty Diagnoses / Procedures Referred By Contac t Referred To Contact [facility] Diagnoses Kidney lesion, lytton, right Procedures US KIDNEY/BLADDER US RETROPERITONEAL REAL TIME W/IMAGE COMPLETE Harrison Castellano MD [address] [place] [address] [place] [address] Referral ID Status Reason Start Date Expiration Date V isits Requested Visits Authorized [id number] Closed Auto-Generate d Referral 09/19/2023 10/18/2024 1 1 [facility] Summary Purpose Family History No Family History Records FoundNo Family History Records FoundNo Family History Records FoundNo Family History Records Found Advance Directives No Advanced Directives Records FoundDocuments on File 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 Advance Directive(s) 09/15/2019 12:13 AM Advance Directive(s) 09/15/2019 12:03 PM Documents on File 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 Advance Directive(s) 10/01/2022 9:20 AM Documents on File 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 Advance Directive(s) 10/01/2022 9:20 AM Health Concerns Infection Onset Date Last Indicated Resolved Time COVID-19 Confirmed 08/26/2022 08/26/2022 Infection Onset Date Last Indicated Resolved Time COVID-19 Confirmed 08/26/2022 08/26/2022 8:52 PM EST Infection Onset Date Last Indicated Resolved Time COVID-19 Rule-Out 08/06/2023 08/06/2023 Additional Source Comments (unrecognized sect ion and content) No Status Records FoundNo Status Records FoundNo Status Records FoundNo Status Records Found INFORMATION SOURCE (unrecogn ized section and content) DATE CREATED AUTHOR AUTHOR'S ORGANIZ ATION 05/14/2021 [facility] DATE CREATED AUTHOR [facility] CREATED AUTHOR AUTHOR'S ORGANIZ ATION 11/28/2023 [facility] Source Comments (unrecognize d section and content) In the event this informatio n is protected by the Federal Confidentiality of Alcohol and Drug Abuse Patient Records regulations: The Federal rules restrict any use of the information to criminally investigate or prosecute any alcohol or drug abuse patient.[facility] event this information is protected by the Federal Confidentiality of Alcohol and Drug Abuse Patient Records regulations: The Federal rules restrict any use of the information to criminally investigate or prosecute any alcohol or drug abuse patient.[facility] the event this information is protected by the Federal Confidentiality of Alcohol and Drug Abuse Patient Records regulations: The Federal rules restrict any use of the information to criminally investigate or prosecute any alcohol or drug abuse patient.[facility] the event this information is protected by the Federal Confidentiality of Alcohol and Drug Abuse Patient Records regulations: The Federal rules restrict any use of the information to criminally investigate or prosecute any alcohol or drug abuse patient.[facility] event this information is protected by the Federal Confidentiality of Alcohol and Drug Abuse Patient Records regulations: The Federal rules restrict any use of the information to criminally investigate or prosecute any alcohol or drug abuse patient.[facility] event this information is protected by the Federal Confidentiality of Alcohol and Drug Abuse Patient Records regulations: The Federal rules restrict any use of the information to criminally investigate or prosecute any alcohol or drug abuse patient.[facility] event this information is protected by the Federal Confidentiality of Alcohol and Drug Abuse Patient Records regulations: The Federal rules restrict any use of the information to criminally investigate or prosecute any alcohol or drug abuse patient.[facility] the event this information is protected by the Federal Confidentiality of Alcohol and Drug Abuse Patient Records regulations: The Federal rules restrict any use of the information to criminally investigate or prosecute any alcohol or drug abuse patient.[facility] the event this information is protected by the Federal Confidentiality of Alcohol and Drug Abuse Patient Records regulations: The Federal rules restrict any use of the information to criminally investigate or prosecute any alcohol or drug abuse patient.[facility] the event this information is protected by the Federal Confidentiality of Alcohol and Drug Abuse Patient Records regulations: The Federal rules restrict any use of the information to criminally investigate or prosecute any alcohol or drug abuse patient.[facility] event this information is protected by the Federal Confidentiality of Alcohol and Drug Abuse Patient Records regulations: The Federal rules restrict any use of the information to criminally investigate or prosecute any alcohol or drug abuse patient.[facility] the event this information is protected by the Federal Confidentiality of Alcohol and Drug Abuse Patient Records regulations: The Federal rules restrict any use of the information to criminally investigate or prosecute any alcohol or drug abuse patient.[facility] the event this information is protected by the Federal Confidentiality of Alcohol and Drug Abuse Patient Records regulations: The Federal rules restrict any use of the information to criminally investigate or prosecute any alcohol or drug abuse patient.[facility] the event this information is protected by the Federal Confidentiality of Alcohol and Drug Abuse Patient Records regulations: The Federal rules restrict any use of the information to criminally investigate or prosecute any alcohol or drug abuse patient.[facility] the event this information is protected by the Federal Confidentiality of Alcohol and Drug Abuse Patient Records regulations: The Federal rules restrict any use of the information to criminally investigate or prosecute any alcohol or drug abuse patient.[facility] the event this information is protected by the Federal Confidentiality of Alcohol and Drug Abuse Patient Records regulations: The Federal rules restrict any use of the information to criminally investigate or prosecute any alcohol or drug abuse patient.[facility] the event this information is protected by the Federal Confidentiality of Alcohol and Drug Abuse Patient Records regulations: The Federal rules restrict any use of the information to criminally investigate or prosecute any alcohol or drug abuse patient.[facility] the event this information is protected by the Federal Confidentiality of Alcohol and Drug Abuse Patient Records regulations: The Federal rules restrict any use of the information to criminally investigate or prosecute any alcohol or drug abuse patient.[facility] the event this information is protected by the Federal Confidentiality of Alcohol and Drug Abuse Patient Records regulations: The Federal rules restrict any use of the information to criminally investigate or prosecute any alcohol or drug abuse patient.[facility] the event this information is protected by the Federal Confidentiality of Alcohol and Drug Abuse Patient Records regulations: The Federal rules restrict any use of the information to criminally investigate or prosecute any alcohol or drug abuse patient.[facility] Reason for Visit (unrecogniz ed section and content) Reason Comments New NI Medical Consult History Stro ke Reason Onset Date Comments Refill Request 08/07/2022 Reason Comments Chest Congestion cough, productive, c hills x 3 days Reason Comments Future Appointment COVID positive Reason Comments Covid Positive Reason Comments Covid Follow Up Reason Comments Outside Labs Results Reason Comments OUTSIDE CARDIO CONSULT Reason Comments Patient Update Reason Comments Nose Problem L nostril clogged, u nsure if sinus problem x1 week Reason Comments outside cardiology Reason Comments Follow Up Reason Comments Cough Chest congestion x4 days, wheezing Reason Onset Date Comments Refill Request 08/13/2023 Reason Onset Date Comments Refill Request 09/20/2023 Reason Comments Radiology US Specialty Diagnoses / Procedures Referred By Ashley perry Referred To Contact [facility] Diagnoses Kidney lesion, lytton, right Procedures US KIDNEY/BLADDER US RETROPERITONEAL REAL TIME W/IMAGE COMPLETE Harrison Castellano MD [address] [place] [address] [place] [address] Referral ID Status Reason Start Date Expiration Date V isits Requested Visits Authorized [id number] Closed Auto-Generate d Referral 09/19/2023 10/18/2024 1 1 Reason Comments Outside Urology Reason Comments Orders Care Teams (unrecognized sec tion and content) 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 Start Date End Date Harrison Castellano MD [address] [place] [id number] PCP - General Family Practice 08/23/21 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 Specialty Start Date End Date Harrison Castellano MD [address] [place] [id number] PCP - General Family Medicine 08/23/21 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 Specialty Start Date End Date Harrison Castellano MD [address] [place] [id number] PCP - General Family Medicine 08/23/21 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 Specialty Start Date End Date Harrison Castellano MD [address] [place] [id number] PCP - General Family Medicine 08/23/21 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 Specialty Start Date End Date Harrison Castellano MD [address] [place] [id number] PCP - General Family Medicine 08/23/21 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 Specialty Start Date End Date Harrison Castellano MD [address] [place] [id number] PCP - General Family Medicine 08/23/21 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 Specialty Start Date End Date Harrison Castellano MD [address] [place] [id number] PCP - General Family Medicine 08/23/21 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 Specialty Start Date End Date Harrison Castellano MD [address] [place] [address] PCP - General Family Medicine 08/23/21 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 Specialty Start Date End Date Harrison Castellano MD [address] [place] [address] PCP - General Family Medicine 08/23/21 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 Specialty Start Date End Date Harrison Castellano MD [address] [place] [address] PCP - General Family Medicine 08/23/21 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 Specialty Start Date End Date Harrison Castellano MD [address] [place] [address] PCP - General Family Medicine 08/23/21 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 Specialty Start Date End Date Harrison Castellano MD [address] [place] [address] PCP - General Family Medicine 08/23/21 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 This clinical summary was aggregated from multiple sources. Caution should be exercised in using it in the provision of clinical care. This summary normalizes information from multiple sources, and as a consequence, information in this document may materially change the coding, format and clinical context of patient data. In addition, data may be omitted in some cases. CLINICAL DECISIONS SHOULD BE BASED ON THE PRIMARY CLINICAL RECORDS. [facility]. provides no warranty or guarantee of the accuracy or completeness of information in this document.
[2023-12-15 05:46] LABS: Anion Gap 6 (5-15); BUN 26 mg/dL (7-18); BUN/Creat Ratio 21.5 RATIO (10-20); Calcium,Total 8.9 mg/dL (8.5-10.1); Chloride 106 mmol/L (98-107); Creatinine, Serum 1.21 mg/dL (0.70-1.30); EST Glomerular Filtration Rate 61 mL/min (>60); Est Glom Filt Rate - Afr Amer 74 mL/min (>60); Glucose 143 mg/dL (74-106); Potassium 3.4 mmol/L (3.5-5.1); Sodium Level 139 mmol/L (136-145); Uric Acid 4.3 mg/dL (3.5-7.2)
[2023-12-15 06:47] VITALS: BP 125/76; PULSE 74; RESP 18; TEMP 36.6; O2SAT 99
== END 2023-12-15 06:49 | disposition home or self-care (01) ==
PROVIDERS: Emergency Provider Emergency Medicine; PCP Family Medicine; Visit Provider Emergency Medicine
DX: M25.571 Pain in right ankle and joints of right foot (principal); Z87.891 Personal history of nicotine dependence; Z86.73 Personal history of transient ischemic attack (TIA), and cerebral infarction without residual deficits; I10 Essential (primary) hypertension; I25.10 Atherosclerotic heart disease of native coronary artery without angina pectoris; E78.5 Hyperlipidemia, unspecified; Z79.899 Other long term (current) drug therapy; Z79.82 Long term (current) use of aspirin; Z79.02 Long term (current) use of antithrombotics/antiplatelets; M10.9 Gout, unspecified
CPT/HCPCS: 36415; 73610; 80048; 84550; 85025; 99283

== ENCOUNTER → 2025-01-03 | Outpatient (CLI) | payer MEDICARE, OTHER, SELFPAY ==
--- NOTE | 2025-01-03 09:47 | ECHOD_ITS ---
Reason For Study Reason For Study: Murmur Procedure This was a 2D Doppler, Color Flow transthoracic echocardiogram. The study was technically difficult. Exam performed in department. Left Ventricle Normal LV size. Left ventricular systolic function is normal. The left ventricular ejection fraction is 60 %. No regional wall motion abnormalities noted. Right Ventricle Normal RV size. Normal systolic function. Atria The left atrium is moderately enlarged. Normal right atrium. Mitral Valve Normal mitral valve. There is mild mitral annular calcification. Mild (1+) eccentric mitral valve insufficiency. Tricuspid Valve Normal tricuspid valve. Mild tricuspid valve insufficiency. Pulmonary artery systolic pressure is 27 mmHg. Aortic Valve Trisinus/trileaflet aortic valve. Pulmonic Valve Normal pulmonic valve. Great Vessels Mildly dilated aortic root. The pulmonary artery is normal size. Inferior vena cava collapse with respiration. Pericardium/Pleural No pericardial effusion. MMode/2D Measurements & Calculations LVIDd: 6.0 cm IVSd: 1.0 cm LVOT diam: 2.0 cm LVIDs: 4.0 cm LVPWd: 0.84 cm LVOT area: 3.3 cm2 FS: 33.5 % Ao root diam: 4.5 cm LAV(MOD-bp): 107.8 ml LVAd ap4: 36.0 cm2 LAV(MOD-bp) Indexed: 60.6 ml/m2 LVLd ap4: 8.0 cm LAV(MOD-sp2): 106.1 ml EDV(MOD-sp4): 132.4 ml LAV(MOD-sp4): 101.8 ml EDV(sp4-el): 137.8 ml LVAs ap4: 23.2 cm2 LVLs ap4: 6.9 cm ESV(MOD-sp4): 67.1 ml ESV(sp4-el): 66.4 ml EF(MOD-sp4): 49.3 % EF(sp4-el): 51.8 % SV(MOD-sp4): 65.3 ml SV(sp4-el): 71.4 ml LA A4 area: 28.1 cm2 SI(MOD-sp4): 36.7 ml/m2 TAPSE: 1.3 cm Time Measurements MV dec time: 0.21 sec Doppler Measurements & Calculations MV E max jayme: 79.6 cm/sec Lat Peak E' Jayme: 8.2 cm/sec Med Peak E' Jayme: 8.7 cm/sec MV A max jayme: 64.0 cm/sec E/E' lat: 9.7 E/E' med: 9.1 MV E/A: 1.2 MV V2 max: 101.4 cm/sec MV P1/2t max jayme: 100.3 cm/sec Ao V2 max: 207.3 cm/sec MV max P.1 mmHg MV P1/2t: 82.5 msec Ao max P.2 mmHg MV V2 mean: 49.4 cm/sec MV dec slope: 356.1 cm/sec2 Ao V2 mean: 128.4 cm/sec MV mean P.2 mmHg Ao mean P.8 mmHg MV V2 VTI: 34.1 cm MVA(P1/2t): 2.7 cm2 Ao V2 VTI: 47.7 cm MVA(VTI): 3.2 cm2 AV (velocity ratio): 0.69 NATALIA(I,D): 2.3 cm2 NATALIA(V,D): 2.2 cm2 LV V1 max: 136.8 cm/sec SV(LVOT): 108.9 ml TR max jayme: 243.6 cm/sec LV V1 max P.6 mmHg TR max P.7 mmHg LV V1 mean P.8 mmHg LV V1 mean: 89.3 cm/sec LV V1 VTI: 33.0 cm ECHO/Echo Complete Interpretation Summary Normal LV size. Left ventricular systolic function is normal. The left ventricular ejection fraction is 60 %. Mildly dilated aortic root. The left atrium is moderately enlarged. Ordering Physician: Anuja Dickey Referring Physician: Anuja Dickey Performed By: Hayden Dick RCS
== END | disposition home or self-care (01) ==
LOC: CVS 09:43
PROVIDERS: PCP Family Medicine; Referring Provider Physician Assistant Medical; Visit Provider Physician Assistant Medical
DX: I35.1 Nonrheumatic aortic (valve) insufficiency (principal)
CPT/HCPCS: 93306

== ENCOUNTER → 2025-06-07 | Outpatient (CLI) | payer MEDICARE, OTHER, SELFPAY ==
--- NOTE | 2025-06-07 14:24 | CT_ITS ---
PROCEDURE: CTA CHEST W/WO CONTRAST 06/07/2025 REASON FOR EXAM: DILATED AORTIC ROOT TECHNIQUE: CTA CHEST W/WO CONTRAST Multiplanar Sagittal and Coronal images were obtained. 3D post processing was performed CONTRAST: Isovue 370 VOLUME: 100 mL One or more dose reduction techniques were used (e.g., Automated exposure control, adjustment of the mA and/or kV according to patient size, use of iterative reconstruction technique). RADIATION DOSE SUMMARY: CTDlvol: 20.5 mGy DLP: 322.57 mGycm COMPARISON: Prior study dated September 12, 2023. FINDINGS: Hardware: None Lymph nodes: Stable small benign-appearing bilateral axillary lymph nodes. Small benign-appearing mediastinal lymph nodes. Heart: Prior CABG. Calcification of the [place] coronary arteries. Left atrial enlargement. Thoracic Aorta: Dilatation of the root of the ascending thoracic aorta with a transverse dimension of 44 mm. This is essentially unchanged. No evidence of dissection. Pulmonary Vessels: Well opacified. No evidence of pulmonary embolism. Lungs and Airways: The lungs are well expanded. Small calcific granuloma in the posterior aspect of the right upper lobe. No evidence of infiltration or mass lesion. Pleura: No pleural effusion. Upper Abdomen: Elevation of the left hemidiaphragm. Bones: Bone windows are unremarkable. CT/CTA Chest W/WO Contrast IMPRESSION: Stable examination. Reading Location: [id number]
== END | disposition home or self-care (01) ==
LOC: CT 14:22
PROVIDERS: PCP Family Medicine; Referring Provider Physician Assistant Medical; Visit Provider Physician Assistant Medical
DX: I77.810 Thoracic aortic ectasia (principal)
CPT/HCPCS: 71275; Q9967

== ENCOUNTER 2025-08-25 10:45 | Emergency (ER) | payer MEDICARE, OTHER, SELFPAY ==
[2025-08-25 10:45] VITALS: BP 143/75; PULSE 81; RESP 16; TEMP 36.9; O2SAT 97; BMI 24.9
--- NOTE | 2025-08-25 11:04 | EX.ED.GENINJ ---
HPI History of Present Illness Chief Complaint: Head Injury Informant: patient Onset/Context/Timing Onset: Today Mechanism/Context: Fall Location: Right forehead and eyebrow Worsened by: Nothing Relieved by: Nothing Associated Symptoms Associated Symptoms: Negative for Parasthesias, Weakness, Loss of function, Inability to ambulate, Loss of consciousness or Amnesia Narrative Narrative: Patient presents with head injury that occurred today. Patient states he tripped going up some steps. Patient states he fell forward into a door. Patient denies any loss of consciousness. Patient denies any nausea or vomiting. Patient denies any visual changes. Patient denies any paresthesias or weakness. Patient states he is on Plavix and was unable to get the bleeding stopped. Patient states his last tetanus was 3 to 4 years ago. Tetanus Immunization: <5 years [facility] Medical History Gout Dilated aortic root Postoperative atrial fibrillation (02/17/15) Nonrheumatic aortic (valve) insufficiency Essential (primary) hypertension CVA (cerebral vascular accident) (08/18/19) Stroke Atherosclerotic heart disease of [place] coronary artery without angina pectoris Hyperlipidemia Vertigo Occlusion of both vertebral arteries Home Medications Medication Instructions Recorded Last Taken Type allopurinol 300 mg tablet 300 mg PO DAILY #30 tabs 05/27/14 12/11/18 Rx aspirin 81 mg chewable tablet 81 mg PO DAILY ##30 05/27/14 04/14/15 Rx clopidogrel 75 mg tablet 75 mg PO DAILY #30 tabs 08/19/19 Unknown Rx rosuvastatin 40 mg tablet (Crestor) 40 mg PO DAILY 02/15/20 Unknown History amlodipine 5 mg tablet 5 mg PO DAILY blood pressure #90 05/31/21 Unknown Rx tabs zinc gluconate 30 mg tablet 30 mg PO DAILY 10/08/21 Unknown History calcium 600 mg (as 1 cap PO DAILY 07/09/22 Unknown History carbonate)-vitamin D3 12.5 mcg (500 unit) capsule (Calcium with Vit D3) multivitamin (Daily Multi-Vitamin 1 tab PO DAILY 07/10/23 Unknown History tablet) hydrocodone-acetaminophen 5-325mg 1 tab PO Q6H PRN PRN Pain 3 days 12/15/23 Unknown Rx 5mg-325mg #10 TABLETS doxazosin 2 mg tablet (Cardura) 2 mg PO DAILY #90 tabs 09/13/24 Unknown Rx hydrochlorothiazide 12.5 mg capsule 12.5 mg PO DAILY #90 caps 11/29/24 Unknown Rx codeine 10 mg-guaifenesin 100 mg/5 ml PO 08/25/25 Unknown History mL oral liquid doxycycline monohydrate 100 mg 100 mg PO BID 08/25/25 Unknown History capsule Allergy/AdvReac Type Severity Reaction Status Date / Time losartan AdvReac Intermediate Nasal Verified 08/25/25 10:47 congestion & cough amlodipine AdvReac Mild high doses Verified 08/25/25 10:47 causes vasculitis. 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) Encounter for loop recorder at end of battery life Social History Smoking Status: Former smoker alcohol intake: never substance use type: does not use caffeine: Yes Type: coffee Number of servings: 2 what type of physical activity do you participate in: walking and other details: tredmill frequency: 3-4 times per week duration: 30-45 minutes/day seatbelt use: always do you feel safe at home: Yes ROS ROS ED Constitutional Constitutional ED: Denies chills or fever(s) Eyes Eyes: Denies blurry vision or change in vision ENT ENT ED: Denies rhinorrhea or sore throat Cardiovascular Cardiovascular: Denies chest pain or palpitations Respiratory/Chest Respiratory/Chest: Reports cough; Denies dyspnea Gastrointestinal Gastrointestinal: Denies nausea or vomiting Genitourinary Genitourinary ED: Denies dysuria or hematuria Musculoskeletal Musculoskeletal: Denies back pain or neck pain Integumentary Denies abscess or rash Neurologic Neurologic: Denies headache(s) or weakness Allergic/Immunologic Allergic/Immunologic ED: Denies mouth swelling or urticaria EXAM Physical Exam Const Vital Signs: 08/25/25 10:45 08/25/25 10:55 Temperature 98.5 F Temperature Source Oral Pulse Rate 81 Respiratory Rate 16 Respiratory Effort Normal Respiratory Depth Normal Respiratory Pattern Normal Blood Pressure 143/75 H Blood Pressure Mean 97 Pulse Ox 97 Oxygen Delivery Method Room Air Positive well nourished and well developed General Appearance ED: well developed and NAD HEENT HEENT Narrative: There is a 2.0 cm full-thickness linear laceration over the right eyebrow and forehead. There is mild gapping of the wound margins. There is minimal bleeding noted. There is no bony crepitance or step-off. There is no foreign body. Neck full ROM Neuro oriented x3, CN's II-XII intact bilaterally, moves all extremities, no focal motor deficits and no sensory deficits noted Sensorium / Orientation: alert Motor Exam: strength 5/5 throughout Psych mental status grossly normal and thought process normal PROC Procedures Lacerations Right eyebrow: Length: 2 cm Depth: Sub Q Shape: Linear Prep: Sterile Conditions and Chlorhexadine Laceration repair: Lidocaine with epi, Local, Skin sutures and Wound explored Number of Sutures/Maribel: 4 Suture Information: Ethilon, Simple and 5-0 MDM MDM MDM Narrative Medical decision making narrative: Patient was advised of the need for laceration repair. Spouse was questioning the need for CT scan. Since the patient is neurologically intact, and is not on a true anticoagulant, I do not feel he needs CT scan at this time. Patient and spouse are agreeable with this. Treatment and Re-Evaluation Narrative: LET gel was applied. The wound was cleaned with chlorhexidine. The wound was anesthetized with 1% lidocaine with epinephrine locally. The wound was closed with 4 simple interrupted #5-0 nylon sutures under sterile technique. Patient tolerated the procedure well. Bacitracin dressing was applied. Patient was instructed to follow-up in 5 days for wound recheck and suture removal. Patient and spouse understood and were agreeable with the plan. All questions were answered. Discharge Plan Triage Chief Complaint: Head Injury ED Provider: Prasanna Ogden Dx/Rx/DC Orders Clinical Impression: Laceration of right eyebrow, Head injury Instructions: ED Laceration, All Closures Prescriptions: No Action rosuvastatin [Crestor] 40 mg tablet 40 mg PO DAILY zinc gluconate 30 mg tablet 30 mg PO DAILY calcium carbonate-vitamin D3 [Calcium 600 with Vitamin D3] 600 mg-12.5 mcg (500 unit) capsule 1 cap PO DAILY multivitamin [Daily Multi-Vitamin] Tablet 1 tab PO DAILY allopurinol 300 MG tablet 300 mg PO DAILY Qty: 30 0RF Patient Comments: prevention of gout or uric acid aspirin 81 MG tablet,chewable 81 mg PO DAILY Qty: 30 0RF Patient Comments: BLOOD THINNER clopidogrel 75 MG tablet 75 mg PO DAILY Qty: 30 0RF hydrocodone-acetaminophen [hydrocodone-acetaminophen] 5-325 mg tablet 1 tab PO Q6H PRN PRN (Reason: Pain) 3 Days Qty: 10 0RF doxycycline monohydrate 100 mg capsule 100 mg PO BID codeine-guaifenesin 10-100 mg/5 mL liquid PO amlodipine 5 mg tablet 5 mg PO DAILY Qty: 90 3RF doxazosin [Cardura] 2 mg tablet 2 mg PO DAILY Qty: 90 3RF hydrochlorothiazide 12.5 mg capsule 12.5 mg PO DAILY Qty: 90 3RF Primary Care Provider: Yasmany Smith Referrals: Yasmany Smith MD [Primary Care Provider, Family Practice] - 5 Days for suture removal Print Language: Danish Disposition Disposition: Home, Self Care
[2025-08-25] MEDS: Lidocaine/Epi/Tetracaine 50 ML 1 APPLIC TOPICAL (11:13)
[2025-08-25] MEDS: Lidocaine 1% /Epi 1:100 (20ml) 20 ML Vial INFILT (11:14)
[2025-08-25 12:01] VITALS: BP 148/57; PULSE 72; RESP 16; TEMP 36.9; O2SAT 96
== END 2025-08-25 12:03 | disposition home or self-care (01) ==
PROVIDERS: Emergency Provider Emergency Medicine; PCP Family Medicine; Visit Provider Emergency Medicine
DX: S01.111A Laceration without foreign body of right eyelid and periocular area, initial encounter (principal); I10 Essential (primary) hypertension; E78.5 Hyperlipidemia, unspecified; I25.10 Atherosclerotic heart disease of native coronary artery without angina pectoris; Z87.891 Personal history of nicotine dependence; S09.90XA Unspecified injury of head, initial encounter; W10.9XXA Fall (on) (from) unspecified stairs and steps, initial encounter; Z79.02 Long term (current) use of antithrombotics/antiplatelets; Z86.73 Personal history of transient ischemic attack (TIA), and cerebral infarction without residual deficits; M10.9 Gout, unspecified; Z79.899 Other long term (current) drug therapy; Z79.82 Long term (current) use of aspirin
CPT/HCPCS: 12011; 99283